=== PATIENT | male | born 1940 | race Hispanic/Latino ===

== ENCOUNTER 2017-06-02 22:44 | Inpatient (IN) | payer SELFPAY ==
[2017-06-02] MEDS ORDERED: Nitroglycerin 2% Ointment 1 INCH/1 GM Packet ONE (22:58)
[2017-06-02 23:07] LABS: #Eosinphils 0.1 thou/uL (0.0-0.7); #Lymphocytes 1.9 thou/uL (1.20-3.40); #Monocytes 0.7 thou/uL (0.11-0.59); #Neutrophils 8.5 thou/uL (1.40-6.50); %Basophils 0.2 % (0.0-1.0); %Eosinophils 0.6 % (0.0-10.0); %Lymphocytes 17.1 % (21.0-51.0); %Monocytes 6.2 % (0.0-10.0); Hemoglobin 10.2 g/dL (14.0-18.0); Mean Corpuscular HGB CONC 33.7 g/dL (32.0-36.0); Mean Corpuscular Hemoglobin 33.9 pg (27.0-31.0); Mean Platelet Volume 7.7 fL (7.4-10.4); Platelet Count 192 thou/uL (130-400); RBC Distribution Width 12.9 % (11.5-14.5); Red Blood Cell (RBC) Count 3.02 mill/uL (4.70-6.10); White Blood Cell (WBC) Count 11.2 thou/uL (4.8-10.8)
--- NOTE | 2017-06-02 23:13 | RAD ---
PORTABLE CHEST 06/02/17 PROVIDED CLINICAL HISTORY: Chest pain. FINDINGS: Cardiac silhouette appears prominent which may be at least partially on the basis of portable techniq ue. Atherosclerosis involves the aortic arch. No focal consolidation, pleural fluid, or pneumothorax apparent. IMPRESSION: No evidence for an acute cardiopulmonary process. POS: JO-ANN
[2017-06-02 23:19] LABS: INR-International Normal Ratio 1.2; PTT 28.4 SEC (22.9-36.1); Prothrombin Time 15.2 SEC (12.0-14.7)
[2017-06-02 23:26] LABS: ALT (SGPT) 14 U/L (8-55); AST (SGOT) 14 U/L (5-34); Albumin 3.6 g/dL (3.4-4.8); Alkaline Phosphatase 78 U/L (40-150); Anion Gap 21 mmol/L (10-20); BUN (Urea Nitrogen) 48 mg/dL (8.4-25.7); Bilirubin, Total 0.4 mg/dL (0.2-1.2); CK (CPK) 32 U/L (30-200); Calc. Creatinine Clearance 0 mL/min (70-130); Calcium 8.9 mg/dL (7.8-10.44); Carbon Dioxide 21 mmol/L (23-31); Chloride 101 mmol/L (98-107); Estimated GFR-MDRD 46; Globulin 2.7 g/dL (2.4-3.5); Glucose 183 mg/dL (83-110); Lipase 72 U/L (8-78); Potassium 4.1 mmol/L (3.5-5.1); Protein, Total 6.3 g/dL (5.8-8.1); Sodium 139 mmol/L (136-145)
[2017-06-02 23:30] LABS: CKMB 1.6 ng/mL (0-6.6); Troponin I 0.045 ng/mL (< 0.028)
[2017-06-02] MEDS ORDERED: Enoxaparin Sodium 80 MG/0.8 ML SYRINGE ONE (23:37)
[2017-06-03] MEDS ORDERED: Eucerin (Mineral Oil/Petrolatum,White) 30 gm Jar TOP PRN (01:16)
[2017-06-03] MEDS ORDERED: Artificial Tears 18 DROP/0.9 ML EA EYE PRN (01:16)
[2017-06-03] MEDS ORDERED: Nitroglycerin 0.4 MG TAB (25 Tab Bottle) PO PRN (01:16)
[2017-06-03] MEDS ORDERED: HumaLOG 300 UNITS/3 ML VIAL SC PRN (01:16)
[2017-06-03] MEDS ORDERED: hydrALAZINE 20 MG/ML VIAL SLOW IVP PRN (01:16)
[2017-06-03] MEDS ORDERED: Ondansetron ODT 4 MG TAB PO PRN (01:16)
[2017-06-03] MEDS ORDERED: Mag-Al 1200 mg/1200 mg/30 ML UDCUP PO PRN (01:16)
[2017-06-03] MEDS ORDERED: Acetaminophen 325 MG TAB PO PRN (01:16)
[2017-06-03] MEDS ORDERED: HYDROcodone/Acetaminophen 5/325 mg Tablet PO PRN (01:16)
[2017-06-03] MEDS ORDERED: Loperamide HCl 2 MG CAP PO PRN (01:16)
[2017-06-03] MEDS ORDERED: Senokot 8.6 MG TAB PO PRN (01:16)
[2017-06-03] MEDS ORDERED: Dextrose 50% Abboject 50 ML SYRINGE SLOW IVP PRN (01:16)
[2017-06-03] MEDS ORDERED: Zolpidem Tartrate 5 MG TAB PO PRN (01:16)
[2017-06-03] MEDS ORDERED: Chloraseptic Spray 180 ml Bottle PO PRN (01:16)
[2017-06-03] MEDS ORDERED: Sodium Chloride 0.65% Nasal 44 ML BOT EA NARE PRN (01:16)
[2017-06-03] MEDS ORDERED: Diabetic Tussin 200 MG/10 ML UDCUP PO PRN (01:16)
[2017-06-03] MEDS ORDERED: Loratadine 10 MG TAB PO PRN (01:16)
[2017-06-03] MEDS ORDERED: Dextrose 5% in Water 1,000 ML IV PRN (01:16)
[2017-06-03] MEDS ORDERED: Ondansetron HCl/PF 4 MG/2 ML Vial IVP PRN (01:16)
[2017-06-03] MEDS ORDERED: Milk Of Magnesia 30 ML UDCUP PO PRN (01:16)
--- NOTE | 2017-06-03 01:38 | HP ---
PRIMARY CARE PHYSICIAN: The patient is from [place], so this is city call admission. REASON FOR ADMISSION: Chest pain (non-STEMI, syncope). HISTORY OF PRESENT ILLNESS: A 77-year-old male who has underlying history of hypertension; diabetes, type 2; and congestive heart failure; who is originally from [place] and he is visiting his family. Around 7:00 p.m. after dinner, the patient was feeling dizziness and he went to his room and he passed out. At that time, the patient was diaphoretic. He regained consciousness very quickly, but after that he was having chest pain, nausea and diaphoresis. This patient is [place] speaking on ly, but he has a grandson present at bedside who helped me to interpret. Family member called paramedics and paramedics came to his house and they evaluated and they were con cerned about STEMI and that is why patient was transferred to our hospital. As per sports teacher's, betty ent had inferior depression in leads II, III, aVF and there was concern of STEMI, but when he arrived to our emergency room and we did EKG, there was no evidence of STEMI. The patient did not have any chest pain. He did not have any vomiting. He did not have any orthopnea, PND or leg swelling. He d oes have a heart problem, which he was told what he is not able to specify what type of heart problem he had. REVIEW OF SYSTEMS: The following complete review of systems was negative, unless otherwise mentioned in the HPI or below: Constitutional: Weight loss or gain, ability to conduct usual activities. Skin: Rash, itching. Eyes: Double vision, pain. ENT/Mouth: Nose bleeding, neck stiffness, pain, tenderness. Cardiovascular: Palpitations, dyspnea on exertion, orthopnea. Respiratory: Shortness of breath, wheezing, cough, hemoptysis, fever or night sweats. Gastrointestinal: Poor appetite, abdominal pain, heartburn, nausea, vomiting, constipation, or diarr hea. Genitourinary: Urgency, frequency, dysuria, nocturia. Musculoskeletal: Pain, swelling. Neurologic/Psychiatric: Anxiety, depression. Allergy/Immunologic: Skin rash, bleeding tendency. Please see my HPI for pertinent positives and negative. All other review of systems reviewed and neg ative except as mentioned in the HPI. ALLERGIES: No known drug allergies. CURRENT HOME MEDICATIONS: Metformin with glibenclamide 500/5 one tablet twice daily, losartan 50 mg daily, Minipress 1 mg t.i.d., Lasix 40 mg t.i.d., aspirin 100 mg p.o. daily. PAST MEDICAL HISTORY: Diabetes, type 2; hypertension; dyslipidemia; unknown heart problem. PAST SURGICAL HISTORY: Reviewed and negative. PAST PSYCHIATRIC HISTORY: Reviewed and negative. FAMILY HISTORY: Diabetes, hypertension runs among several family members. SOCIAL HISTORY: The patient is originally from [place]. No history of tobacco, alcohol or illicit dr ug abuse. EMERGENCY ROOM COURSE: The patient has received Lovenox 1 mg per kg, IV fluids 500 mL and nitropatch . PHYSICAL EXAMINATION: VITAL SIGNS: On arrival, blood pressure 157/74, pulse 77, respiratory rate 19, temperature 97.7, sat uration 100% on room air, weight 66.5 kilograms. GENERAL: The patient is currently alert, awake, no obvious acute distress. HEAD: Normocephalic, atraumatic. EYES: Pupils are round and reactive to light. Extraocular muscle intact. ENT: Oropharynx within normal limits. Moist mucous membranes. No oral lesions. No pharyngeal eryt sanjiv, no exudate. NECK: Supple, no JVD, no thyromegaly, no carotid bruit, no jugular venous distention. LUNGS: Clear to auscultation without any rhonchi or rales. CARDIAC: S1, S2 regular. Systolic murmur present at aortic area as well as parasternal and apex. N o gallop, no rub. ABDOMEN: Soft, bowel sounds present, nontender, nondistended. No organomegaly, no mass, no suprapub ic tenderness. BACK: Unremarkable, no CVA tenderness. EXTREMITIES: Upper extremity: Passive movement of all joints are normal. Lower extremities: No ed carley. Good peripheral pulsation. SKIN: No skin rash. HEMATOLOGICAL SYSTEM: No lymphadenopathy. NEUROLOGIC: Nonfocal examination. The patient moves all 4 limbs. Plantar bilateral flexor. No foc al neurological deficit noted. SIGNIFICANT LABORATORY DATA AND IMAGING: EKG normal sinus rhythm, LVH with some repolarization rose es. Chest x-ray based on my review, no acute cardiopulmonary process. CBC: WBC 11.2, hemoglobin 10 .2, MCV 101, platelets 192. BMP: Sodium 139, potassium 4.1, chloride 101, carbon dioxide 21, anion gap 21, BUN 48, creatinine 1.49, glucose 183, calcium 8.9. LFT: AST 14, ALT 14, alkaline phosphatas e 78, albumin of 3.6, CK 432, CK-MB 1.6, troponin I 0.045, BNP 278.6, INR 1.2. ASSESSMENT AND PLAN: 1. Near syncope/syncope. This patient has significant murmur, which is suspected for aortic stenosi s. He has elevated troponin and he has chest pain, so his syncope is most likely cardiac etiology re lated. We will obtain echocardiography during this admission. We will monitor on telemetry floor fo r any kind of arrhythmia. 2. Chest pain. The patient's chest pain description is also atypical for angina. He has various ri sk factors for coronary artery disease including diabetes, hypertension, and dyslipidemia. At this p oint, his EKG is not showing any ST elevation, but his chest pain and elevated troponin all consisten t with non-ST elevation myocardial infarction. We will continue with Coreg 3.125 mg twice daily, Isabel enox 1 mg per kg subcu twice daily. We will consult Cardiology. We will obtain echocardiography. M eanwhile, we will continue with aspirin 325 mg p.o. daily, nitropatch q.8 hourly. We will check lipi d profile for risk stratification and we will also start Lipitor 20 mg p.o. at bedtime. 3. Diabetes, type 2. We will hold on his oral diabetic medication, but we will continue with insuli n as per sliding scale per protocol. Diabetic diet will be given. 4. Hypertension. We will continue the nitropatch q.8 hourly, Coreg 3.125 mg p.o. b.i.d. and we will titrate blood pressure medication while in hospital. The patient is taking Minipress, losartan, whi ch we will also continue while in hospital. 5. Murmur, most likely related with aortic stenosis murmur. We will obtain echocardiography to asse ss ejection fraction and other structural and functional abnormality. 6. Chronic kidney disease, stage 3. We will monitor renal function and avoid nephrotoxic agents. 7. Elevated BNP, most likely diastolic heart failure. We will obtain echocardiography to assess eje ction fraction and other structural abnormality. 8. Anemia, macrocytosis. We will continue folic acid and vitamin B12 therapy. 9. Deep venous thrombosis prophylaxis. The patient is already on full dose of Lovenox therapy. 10. Gastrointestinal prophylaxis. Pepcid 20 mg p.o. b.i.d. 11. Code status: The patient is FULL CODE. The patient's daughter is surrogate decision maker. Disposition and plan based on clinical course and cardiology recommendation. Plan of care discussed with the patient and family member at bedside in the emergency room.
[2017-06-03 02:51] VITALS: BMI 25.4
[2017-06-03 03:08] LABS: #Lymphocytes 1.3 thou/uL (1.20-3.40); #Monocytes 0.5 thou/uL (0.11-0.59); #Neutrophils 7.5 thou/uL (1.40-6.50); %Basophils 0.1 % (0.0-1.0); %Eosinophils 0.3 % (0.0-10.0); %Lymphocytes 13.4 % (21.0-51.0); %Monocytes 5.2 % (0.0-10.0); Hemoglobin 9.3 g/dL (14.0-18.0); Mean Corpuscular Hemoglobin 33.8 pg (27.0-31.0); Mean Corpuscular Volume 99.5 fl (80.0-94.0); Mean Platelet Volume 7.7 fL (7.4-10.4); Platelet Count 180 thou/uL (130-400); RBC Distribution Width 12.9 % (11.5-14.5); Red Blood Cell (RBC) Count 2.76 mill/uL (4.70-6.10); White Blood Cell (WBC) Count 9.3 thou/uL (4.8-10.8)
[2017-06-03 03:33] LABS: Troponin I 0.157 ng/mL (< 0.028)
[2017-06-03 03:37] LABS: ALT (SGPT) 12 U/L (8-55); AST (SGOT) 13 U/L (5-34); Albumin 3.4 g/dL (3.4-4.8); Alkaline Phosphatase 70 U/L (40-150); Anion Gap 13 mmol/L (10-20); BUN (Urea Nitrogen) 47 mg/dL (8.4-25.7); Bilirubin, Total 0.3 mg/dL (0.2-1.2); Calc. Creatinine Clearance 41 mL/min (70-130); Calcium 8.6 mg/dL (7.8-10.44); Carbon Dioxide 25 mmol/L (23-31); Cardiac Risk 4.7 (Less than 4.5); Chloride 106 mmol/L (98-107); Cholesterol 170 mg/dl (< 200 Desired); Estimated GFR-MDRD 52; Globulin 2.5 g/dL (2.4-3.5); Glucose 223 mg/dL (83-110); HDL Cholesterol 36 mg/dL (>60 Neg Risk); LDL Cholesterol, Calculated 110 mg/dL; Potassium 4.6 mmol/L (3.5-5.1); Protein, Total 5.9 g/dL (5.8-8.1); Sodium 139 mmol/L (136-145); Triglycerides 119 mg/dL (Less than 150)
[2017-06-03] MEDS: Nitroglycerin 2% Ointment 1 INCH/1 GM Packet TOP SCH ×3 (05:49→21:30)
[2017-06-03 08:40] LABS: #Lymphocytes 1.7 thou/uL (1.20-3.40); #Monocytes 0.5 thou/uL (0.11-0.59); #Neutrophils 4.8 thou/uL (1.40-6.50); %Eosinophils 0.7 % (0.0-10.0); %Lymphocytes 24.2 % (21.0-51.0); %Monocytes 6.5 % (0.0-10.0); %Neutrophils 68.6 % (42.0-75.0); Hemoglobin 9.1 g/dL (14.0-18.0); Mean Corpuscular HGB CONC 33.7 g/dL (32.0-36.0); Mean Corpuscular Hemoglobin 33.5 pg (27.0-31.0); Mean Corpuscular Volume 99.4 fl (80.0-94.0); Mean Platelet Volume 7.5 fL (7.4-10.4); Platelet Count 181 thou/uL (130-400); RBC Distribution Width 12.9 % (11.5-14.5)
[2017-06-03] MEDS: Aspirin 325 MG TAB PO SCH (08:41)
[2017-06-03] MEDS: Cyanocobalamin (Vitamin B-12) 1,000 MCG TAB PO SCH (08:41)
[2017-06-03] MEDS: Carvedilol 3.125 MG TAB PO SCH ×2 (08:41→21:30)
[2017-06-03] MEDS: Famotidine 20 MG TAB PO SCH ×2 (08:41→21:28)
[2017-06-03] MEDS: Folic Acid 1 MG TAB PO SCH (08:41)
[2017-06-03] MEDS ORDERED: Enoxaparin Sodium 80 MG/0.8 ML SYRINGE SC SCH (09:00)
--- NOTE | 2017-06-03 12:17 | CON-2 ---
DATE OF CONSULTATION: 06/03/2017. ATTENDING: Randall Lopez M.D. RESIDENT: Paula Arboleda M.D. PGY-2. REASON FOR CONSULT: Chest pain, syncope. HISTORY OF PRESENT ILLNESS: Mr. Farrell is a 77-year-old male from [place], who presents wit h sudden onset of dizziness that first occurred sudden onset yesterday. The patient states that he w as praying and after he finished, he went to his bed and felt dizzy and he passed out for a couple of seconds, this was witnessed by his family. He also complained of sudden onset chest pain that occur red yesterday. The pain was substernal in location and rated 5-6/10 in intensity. The patient state s that this pain was pressure-like and lasted for 1-2 hours. He states that he has had chest pain in the past, it is typically exertional, relieved by rest and goes away after 5 minutes. The patient h ad seen a seafood clerk in the past for an unspecified heart murmur. He was started on medications th at he is not sure which. He states that he has never had a catheterization or stress test in the pas t. PAST MEDICAL HISTORY: 1. Hypertension. 2. Diabetes mellitus type 2. 3. Hyperlipidemia. 4. Heart murmur. MEDICATIONS: 1. Metformin. 2. Glibenclamide 500/5 one tablet twice daily. 3. Losartan 50 mg daily. 4. Minipress 1 mg t.i.d. 5. Lasix 40 mg t.i.d. 6. Aspirin 100 mg p.o. daily. ALLERGIES: No known drug allergies. FAMILY HISTORY: Significant for diabetes and hypertension. The patient states that his mom also had some sort of heart murmur as well. SOCIAL HISTORY: The patient denies tobacco, drugs, or alcohol use. Currently, he does have a remote smoking history greater than 30 years ago. REVIEW OF SYSTEMS: Ten-point review of systems negative aside from what was listed in the history of present illness. PHYSICAL EXAMINATION: VITAL SIGNS: Blood pressure 135/67, temperature 97.8, pulse 66, respirations 18, oxygen saturation 9 8% on room air. GENERAL: The patient is alert and oriented x3, no apparent distress. HEENT: Extraocular muscles are intact. NECK: Supple with no thyromegaly. CARDIOVASCULAR: Regular rate and rhythm with a 3-4/6 systolic ejection murmur that radiates to the c arotids, best heard at the left sternal border. RESPIRATORY: Lungs are clear to auscultation bilaterally. No crackles, rales or wheezes. ABDOMEN: Soft, nontender to palpation. No organomegaly or distention. EXTREMITIES: No cyanosis or peripheral edema. NEUROLOGICAL: Cranial nerves II-XII intact grossly. LABORATORY DATA: 1. CBC: Hemoglobin 9.1, hematocrit 26.8, white blood cell count 7.0, platelet count 181. BMP: Sod ium 139, potassium 4.6, chloride 106, carbon dioxide 25, BUN 47.133, glucose 223. 2. Cardiac enzymes: 0.045, 0.157, 0.200. 3. Fasting lipid panel: Triglycerides 119, cholesterol 170, LDL 110, HDL 36. 4. BNP 278. ASSESSMENT AND PLAN: The patient is a 77-year-old male with history of hypertension, hyperlipidemia, and unspecified murmurs, who presents with sudden onset of chest pain and dizziness. 1. Likely aortic stenosis based on physical exam findings. Echocardiogram has been ordered for furt her evaluation. Physical exam was consistent with severe aortic stenosis. The patient may require a valve replacement to correct this. We will follow up with the results of the echocardiogram. We wi ll also order carotid Dopplers to further evaluate carotid murmur to rule out carotid stenosis. 2. Anemia. The patient's hemoglobin on admission was 7.2 and drops to 9.1. This potentially may be dilutional as the patient did receive a 500 mL bolus of fluids in the emergency department, although he is not currently receiving fluids, although he is not received fluid since. The patient does not describe any symptoms consistent with blood loss; however, I will continue to monitor at this time. The patient does have an MCV of 100. He has been started on B12 and folate supplementation. We cole l continue to monitor.
--- NOTE | 2017-06-03 13:27 | CON ---
DATE OF CONSULTATION: 06/03/2017 CARDIOLOGY CONSULTATION HISTORY OF PRESENT ILLNESS: Mr. Farrell is a 77-year-old man. He had an episode of chest pressure yesterday. He states he has been having chest pressure for quite some time, but yesterday was worse. He was from [place], visiting his family. After dinner, he felt lightheaded and lost consciousness. He was diaphoretic. He regained consciousness quickly subseque ntly. The patient was brought to the hospital for further evaluation. REVIEW OF SYSTEMS: CONSTITUTIONAL: No significant weight gain or loss. VISION: No changes. HEARING: No changes. PULMONARY: No shortness of breath. CARDIAC: Positive for chest pressure with exertion. RESPIRATORY: Positive for shortness of breath. MUSCULOSKELETAL: No unusual joint pain. NEUROLOGIC: No unilateral weakness or numbness. ALLERGIES: None known. MEDICATIONS: 1. Metformin. 2. Losartan. 3. Minipress. 4. Lasix. 5. Aspirin. PAST MEDICAL HISTORY: Diabetes, hypertension, and dyslipidemia. PAST SURGICAL HISTORY: Negative. PSYCHIATRIC HISTORY: Negative. FAMILY HISTORY: Positive for diabetes. SOCIAL HISTORY: He is from [place]. No tobacco. PHYSICAL EXAMINATION: GENERAL: A pleasant elderly gentleman in no distress. VITAL SIGNS: Blood pressure 163/77 followed by 106/62, pulse 70 and it is regular. LUNGS: Clear. CARDIOVASCULAR: Normal S1, normal S2. There is high pitched crescendo decrescendo murmur, sounds li ke aortic stenosis. ABDOMEN: Soft, nontender. EXTREMITIES: No clubbing or cyanosis. There is no edema. He has good popliteal pulses bilaterally. PERTINENT LABORATORY DATA AND X-RAY FINDINGS: Hemoglobin is 10.2 dropped to 9.1. Troponin 0.2. EKG shows left ventricular hypertrophy. ASSESSMENT: 1. Probable aortic stenosis. 2. Syncopal episode, probably orthostatic hypotension. 3. Anemia. 4. Renal insufficiency which improved, probably some fluid here. PLAN: 1. Would avoid Minipress, which is vasodilator. 2. Would avoid intravenous hydralazine if needed. 3. Repeat echo. Echo shows ejection fraction 50%-55%, but gradients did not appear to be accurate a cross the aortic valve. 4. Repeat hemoglobin and hematocrit tomorrow. 5. Carotid Dopplers to be done. Further recommendations after the initial testing.
--- NOTE | 2017-06-03 15:10 | ULT ---
ULTRASOUND CAROTID DOPPLER STANDARD: HISTORY: Bruit. COMPARISON: None. FINDINGS: Vessels are tortuous. Mild atherosclerotic plaque of the carotid bulbs. There is antegrade flow to both vertebral arteries. No elevated peak systolic velocities within the internal carotid arteries t o suggest hemodynamically significant stenosis. IMPRESSION: 1. No hemodynamically significant stenosis within the internal carotid arteries. 2. Antegrade flow to both vertebral arteries. 3. Tortuous vessels bilaterally suggests chronic hypertension. POS: BUFFY
[2017-06-03] MEDS: Atorvastatin Calcium 20 MG TAB PO SCH (21:28)
[2017-06-04 05:31] LABS: #Eosinphils 0.2 thou/uL (0.0-0.7); #Lymphocytes 2.1 thou/uL (1.20-3.40); #Monocytes 0.4 thou/uL (0.11-0.59); %Basophils 0.8 % (0.0-1.0); %Eosinophils 2.8 % (0.0-10.0); %Monocytes 7.5 % (0.0-10.0); %Neutrophils 52.9 % (42.0-75.0); Hemoglobin 8.5 g/dL (14.0-18.0); Mean Corpuscular HGB CONC 33.7 g/dL (32.0-36.0); Mean Corpuscular Hemoglobin 33.7 pg (27.0-31.0); Mean Platelet Volume 7.8 fL (7.4-10.4); Platelet Count 163 thou/uL (130-400); Red Blood Cell (RBC) Count 2.53 mill/uL (4.70-6.10); White Blood Cell (WBC) Count 5.7 thou/uL (4.8-10.8)
[2017-06-04] MEDS: Nitroglycerin 2% Ointment 1 INCH/1 GM Packet TOP SCH ×2 (05:54→13:28)
[2017-06-04 05:56] LABS: Albumin 3.2 g/dL (3.4-4.8); Anion Gap 9 mmol/L (10-20); BUN (Urea Nitrogen) 36 mg/dL (8.4-25.7); BUN/Creatinine Ratio 26.67; Calc. Creatinine Clearance 41 mL/min (70-130); Calcium 8.8 mg/dL (7.8-10.44); Carbon Dioxide 28 mmol/L (23-31); Chloride 108 mmol/L (98-107); Estimated GFR-MDRD 51; Glucose 96 mg/dL (83-110); Magnesium 2.3 mg/dL (1.6-2.6); Phosphorus 3.6 mg/dL (2.3-4.7); Potassium 3.9 mmol/L (3.5-5.1); Sodium 141 mmol/L (136-145)
[2017-06-04] MEDS ORDERED: Carvedilol 3.125 MG TAB PO SCH ×2 (10:00→21:00)
[2017-06-04] MEDS: Aspirin 325 MG TAB PO SCH (10:04)
[2017-06-04] MEDS: Famotidine 20 MG TAB PO SCH ×2 (10:05→20:09)
[2017-06-04] MEDS: Folic Acid 1 MG TAB PO SCH (10:05)
[2017-06-04] MEDS: Cyanocobalamin (Vitamin B-12) 1,000 MCG TAB PO SCH (10:05)
[2017-06-04] MEDS: HumaLOG 300 UNITS/3 ML VIAL SC PRN (11:54)
--- NOTE | 2017-06-04 15:15 | EKG ---
Test Reason : CHEST PAIN/STEMI Blood Pressure : / mmHG Vent. Rate : 073 BPM Atrial Rate : 073 BPM P-R Int : 160 ms QRS Dur : 086 ms QT Int : 374 ms P-R-T Axes : 045 018 -10 degrees QTc Int : 412 ms Normal sinus rhythm Left ventricular hypertrophy with repolarization abnormality Abnormal ECG Confirmed by ORA VELA, MARCOS ([id number]), metropolitan editor KELSEA VELÁSQUEZ ([id number]) on 06/04/2017 3:15:05 PM Referred By: Confirmed By:MARCOS PAYAN MD
--- NOTE | 2017-06-04 17:07 | PDOC.CTH ---
<Mary Sánchez - Last Filed: 06/04/17 17:05> Cardiology Progress Note - Subjective The pt seen and exmained. No overnight events. No cardiac complaints. The pt HR has been 45-low 50s after Coreg was given. - Objective Vital Signs Temp Pulse Resp BP Pulse Ox 06/04/17 15:32 98.4 F 51 L 20 159/73 H 95 06/04/17 11:22 46 L 18 159/73 H 96 06/04/17 08:00 96.4 F L 46 L 18 95 06/04/17 06:58 96.4 F L 47 L 18 141/65 H 95 Weight 138 lb 2 oz 06/03/17 06/04/17 06/05/17 06:59 06:59 06:59 Intake Total 0 740 Output Total 800 750 Balance -800 -10 - Physical Examination General/Neuro: alert & oriented x3 Neck: no JVD present Lungs: CTA (diminished at bases) Heart: RRR (mumur) Abdomen: soft Extremities: other: (edema) - Telemetry Telemetry Rhythm: SB 50s - Labs Result Diagrams: 06/04/17 04:33 06/04/17 04:33 Troponin/CKMB CK-MB (CK-2) 1.6 ng/mL (0-6.6) 06/02/17 22:53 Troponin I 0.200 ng/mL (< 0.028) H 06/03/17 05:23 - Assessment/Plan 1. Near syncopal episode with Severe - possible Cath on Tuesday for further evaluation of possible AVR; however, his Cr is slightly high and Hgb 8.5. 2. HTN - Start Norvasc 5mg QD; cont. monitor 3. CKD stage 3 - no changed; cont. monitor 4. DM type 2 - managed by PCP 5. Hyperlipidemia - on Lipitor 6. Anemia - Hgb today was 8.5 MAR reviewed Review of Systems - Review of Systems Constitutional: reports: no symptoms reported EENTM: reports: no symptoms reported Respiratory: reports: no symptoms reported Cardiac (ROS): reports: no symptoms reported ABD/GI: reports: no symptoms reported : reports: no symptoms reported Musculoskeletal: reports: no symptoms reported <Quinton Wilkes - Last Filed: 06/05/17 01:23> Cardiology Progress Note - Objective Vital Signs Temp Pulse Resp BP BP Pulse Ox 06/05/17 00:00 146/67 H 06/04/17 20:00 98.8 F 49 L 18 171/73 H 93 L 06/04/17 18:18 51 L 159/73 H 06/04/17 15:35 95 06/04/17 15:32 98.4 F 51 L 20 159/73 H 95 Weight 138 lb 2 oz 06/03/17 06/04/17 06/05/17 06:59 06:59 06:59 Intake Total 0 740 650 Output Total 800 750 200 Balance -800 -10 450 - Labs Result Diagrams: 06/04/17 04:33 06/04/17 04:33 Troponin/CKMB CK-MB (CK-2) 1.6 ng/mL (0-6.6) 06/02/17 22:53 Troponin I 0.200 ng/mL (< 0.028) H 06/03/17 05:23 - Assessment/Plan The pt. was seen and eval. by me. I agree with the A/P by the SIGN WIRER.
[2017-06-04] MEDS ORDERED: Amlodipine 5 MG TAB PO SCH (17:30)
[2017-06-04] MEDS ORDERED: Senokot 8.6 MG TAB PO PRN (18:19)
--- NOTE | 2017-06-04 18:27 | PDOC.PN ---
- Subjective Encounter Start Date: 06/04/17 Encounter Start Time: 15:30 Patient seen and examined. No new complaints. No overnight events - Objective Resuscitation Status: Resuscitation Status FULL:Full Resuscitation MAR Reviewed: Yes Vital Signs & Weight: Vital Signs (12 hours) Temp Pulse Resp BP BP Pulse Ox 06/04/17 18:18 51 L 159/73 H 06/04/17 15:32 98.4 F 51 L 20 159/73 H 95 06/04/17 11:22 46 L 18 159/73 H 96 06/04/17 08:00 96.4 F L 46 L 18 95 06/04/17 06:58 96.4 F L 47 L 18 141/65 H 95 Weight Weight 138 lb 2 oz I&O: 06/03/17 06/04/17 06/05/17 06:59 06:59 06:59 Intake Total 0 740 Output Total 800 750 Balance -800 -10 Result Diagrams: 06/04/17 04:33 06/04/17 04:33 Additional Labs: Accuchecks 06/04/17 06/04/17 06/04/17 16:51 11:35 06:00 POC Glucose 90 191 H 92 06/03/17 20:53 POC Glucose 225 H EKG Reviewed by me: Yes (Tele SB) Phys Exam - Physical Examination Constitutional: NAD Neck: no JVD Respiratory: no wheezing, no rales, no rhonchi Symmetrical Cardiovascular: RRR, no rub 4/6 ANJUM, no heaves Gastrointestinal: soft, non-tender, no distention, positive bowel sounds Musculoskeletal: no edema Neurological: non-focal, moves all 4 limbs Psychiatric: normal affect, A&O x 3 Dx/Plan - Plan DVT proph w/lovenox, DVT proph w/SCDs IMPRESSION: 1. Syncope due to Severe - r/o CAD 2. Elevated troponins 3. DM2 4. HTN 5. CKD 3 PLAN: * Cath on Tuesday * Cardio following * Amlodipine started * on Coreg with holding parameters Review of Systems - Review of Systems Respiratory: negative: Cough, Dry, Shortness of Breath, Hemoptysis, SOB with Excertion, Pleuritic Pain, Sputum, Wheezing Cardiovascular: negative: chest pain, palpitations, orthopnea, paroxysmal nocturnal dyspnea, edema, light headedness Gastrointestinal: negative: Nausea, Vomiting, Abdominal Pain, Diarrhea, Constipation, Melena, Hematochezia - Medications/Allergies Allergies/Adverse Reactions: Allergies Allergy/AdvReac Type Severity Reaction Status Date / Time No Known Allergies Allergy Verified 06/03/17 02:37 Medications: Current Medications Acetaminophen (Tylenol) 650 mg PO Q4H PRN PRN Reason: Headache/Fever or Pain Al Hydroxide/Mg Hydroxide (Maalox) 30 ml PO Q6H PRN PRN Reason: Heartburn or Indigestion Amlodipine Besylate (Norvasc) [address] [facility] Amlodipine Besylate (Norvasc) [address] [facility] Stop: 06/04/17 19:30 Last Admin: 06/04/17 18:18 Dose: 5 mg Artificial Tears (Tears Naturale) 0 drop EA EYE PRN PRN PRN Reason: Dry Eyes Aspirin (Aspirin) [address] [facility] Last Admin: 06/04/17 10:04 Dose: 325 mg Atorvastatin Calcium (Lipitor) 20 mg PO [facility] Last Admin: 06/03/17 21:28 Dose: 20 mg Carvedilol (Coreg) 3.[address] [facility] Cyanocobalamin (Vitamin B-12) 1,[address] [facility] Last Admin: 06/04/17 10:05 Dose: 1,000 mcg Dextrose/Water (Dextrose 50%) 25 gm SLOW IVP PRN PRN PRN Reason: Hypoglycemia Docusate Sodium (Colace) [address] [facility] Famotidine (Pepcid) [address] [facility] Last Admin: 06/04/17 10:05 Dose: 20 mg Folic Acid (Folvite) [address] [facility] Last Admin: 06/04/17 10:05 Dose: 1 mg Glucagon (Glucagon) 1 mg IM PRN PRN PRN Reason: Hypoglycemia Guaifenesin (Robitussin Sf) 200 mg PO Q4H PRN PRN Reason: Cough Dextrose/Water (D5w) 1,000 mls @ 0 mls/hr IV .Q0M PRN; As Directed PRN Reason: Hypoglycemia Insulin Human Lispro (Humalog) 0 units SC .MODERATE SLIDING SC PRN PRN Reason: Moderate Correctional Scale Last Admin: 06/04/17 11:54 Dose: 2 unit Insulin Human Lispro (Humalog) 0 units SC .BEDTIME SLIDING SC PRN PRN Reason: Bedtime Correctional Scale Loperamide HCl (Imodium) 2 mg PO PRN PRN PRN Reason: Diarrhea/Loose Stools Loratadine (Claritin) 10 mg PO DAILYPRN PRN PRN Reason: Sinus Symptoms Magnesium Hydroxide (Milk Of Magnesium) 30 ml PO DAILYPRN PRN PRN Reason: Constipation Mineral Oil/White Petrolatum (Eucerin Cream) 0 gm TOP BIDPRN PRN PRN Reason: Dry Skin Nitroglycerin (Nitrostat) 0.4 mg PO Q5MIN PRN PRN Reason: Chest Pain Ondansetron HCl (Zofran Odt) 4 mg PO Q6H PRN PRN Reason: Nausea/Vomiting Ondansetron HCl (Zofran) 4 mg IVP Q6H PRN PRN Reason: Nausea/Vomiting Phenol (Chloraseptic [place] 180 Ml Bot) 0 ml PO PRN PRN PRN Reason: Sore Throat Senna (Senokot) 2 tab PO HSPRN PRN PRN Reason: Constipation Senna (Senokot) 2 tab PO HSPRN PRN PRN Reason: Constipation Sodium Chloride ([place] Nasal [place] 0.65%) 0 ml EA NARE QIDPRN PRN PRN Reason: Nasal Congestion
[2017-06-04] MEDS: Docusate 100 MG CAP PO SCH (20:09)
[2017-06-04] MEDS: Atorvastatin Calcium 20 MG TAB PO SCH (20:09)
[2017-06-04] MEDS: Carvedilol 3.125 MG TAB PO SCH ×2 (21:28)
[2017-06-05] MEDS ORDERED: Enoxaparin Sodium 30 MG/0.3 ML SYRINGE SC SCH (09:00)
[2017-06-05] MEDS ORDERED: Amlodipine 5 MG TAB PO SCH ×2 (09:00→13:30)
[2017-06-05] MEDS: Aspirin 325 MG TAB PO SCH (09:06)
[2017-06-05] MEDS: Famotidine 20 MG TAB PO SCH ×2 (09:06→20:17)
[2017-06-05] MEDS: Folic Acid 1 MG TAB PO SCH (09:07)
[2017-06-05] MEDS: Cyanocobalamin (Vitamin B-12) 1,000 MCG TAB PO SCH (09:07)
[2017-06-05] MEDS: Docusate 100 MG CAP PO SCH ×2 (09:07→20:17)
[2017-06-05 09:28] LABS: Hemoglobin 9.7 g/dL (14.0-18.0); Platelet Count 182 thou/uL (130-400)
--- NOTE | 2017-06-05 11:00 | PDOC.PN ---
- Subjective Encounter Start Date: 06/05/17 Encounter Start Time: 10:58 Mr. Farrell was seen today in follow-up. He does not have any complaints this morning. He denies chest pain or shortness of breath. - Objective Resuscitation Status: Resuscitation Status FULL:Full Resuscitation MAR Reviewed: Yes Vital Signs & Weight: Vital Signs (12 hours) Temp Pulse Resp BP BP Pulse Ox 06/05/17 09:06 52 L 187/82 H 06/05/17 08:30 98.0 F 52 L 16 95 06/05/17 08:29 98 F 52 L 16 187/82 H 95 06/05/17 04:00 98.5 F 93 16 172/76 H 94 L 06/05/17 00:00 146/67 H Weight Weight 137 lb 9 oz I&O: 06/04/17 06/05/17 06/06/17 06:59 06:59 06:59 Intake Total 740 750 420 Output Total 750 200 Balance -10 550 420 Result Diagrams: 06/05/17 09:05 06/05/17 09:05 Additional Labs: Accuchecks 06/05/17 06/04/17 06/04/17 05:27 20:11 16:51 POC Glucose 104 212 H 90 06/04/17 11:35 POC Glucose 191 H Phys Exam - Physical Examination HEENT: PERRLA Respiratory: no wheezing, no rales, no rhonchi, clear to auscultation bilateral Cardiovascular: RRR 3/6 systolic murmur to carotids Gastrointestinal: soft, non-tender, no distention, positive bowel sounds Musculoskeletal: no edema Dx/Plan (1) Critical aortic valve stenosis Code(s): I35.0 - NONRHEUMATIC AORTIC (VALVE) STENOSIS Status: Acute (2) Hypertension Code(s): I10 - ESSENTIAL (PRIMARY) HYPERTENSION Status: Acute (3) Diabetes mellitus type 2 in nonobese Code(s): E11.9 - TYPE 2 DIABETES MELLITUS WITHOUT COMPLICATIONS Status: Acute - Plan * Critical - plan is for Cardiac Cath tomorrow in preparation for surgery * HTN continue Carvediolol, and Amlodipine- avoiding hydralazine due to . and can not increase Carvediolol due to HR * DM- blood glucose is stable .
--- NOTE | 2017-06-05 13:10 | PDOC.CTH ---
<Mary Sánchez - Last Filed: 06/05/17 16:19> Cardiology Progress Note - Subjective The pt seen and examined. No overnight events. No cardiac complaints. - Objective Vital Signs Temp Pulse Resp BP BP Pulse Ox 06/05/17 09:06 52 L 187/82 H 06/05/17 08:30 98.0 F 52 L 16 95 06/05/17 08:29 98 F 52 L 16 187/82 H 95 06/05/17 04:00 98.5 F 93 16 172/76 H 94 L Weight 137 lb 9 oz 06/04/17 06/05/17 06/06/17 06:59 06:59 06:59 Intake Total 740 750 420 Output Total 750 200 Balance -10 550 420 - Physical Examination General/Neuro: alert & oriented x3 Neck: no JVD present Lungs: CTA Heart: RRR, other: (Murmur) Abdomen: soft Extremities: other: (No edema) - Telemetry Telemetry Rhythm: SR with LBBB 60s - Labs Result Diagrams: 06/05/17 09:05 06/05/17 09:05 Troponin/CKMB CK-MB (CK-2) 1.6 ng/mL (0-6.6) 06/02/17 22:53 Troponin I 0.200 ng/mL (< 0.028) H 06/03/17 05:23 - Assessment/Plan 1. Near syncopal episode with Severe - possible Cath on Tuesday for further evaluation of possible AVR; Today's Cr was 1.35 today and Hgb 9.7 which was 8.5. The pt and family stated Dr Lopez already explained the procedure and the risk; They voiced understanding, no questions at this time, and would like to proceed the procedure if possible 2. HTN - Increase Norvasc 10mg QD; cont. monitor 3. CKD stage 3 - slightly worsen today; cont. monitor 4. DM type 2 - managed by PCP 5. Hyperlipidemia - on Lipitor 6. Anemia - Hgb today was 9.7 which was 8.5 yesterday MAR reviewed <attendant> The pt's BP has been 170-190s after additional BP med was given; Start Clonidin 0.1mg PO q8hrs prn for SBP > 160 Review of Systems - Review of Systems Constitutional: reports: no symptoms reported EENTM: reports: no symptoms reported Respiratory: reports: no symptoms reported Cardiac (ROS): reports: no symptoms reported ABD/GI: reports: no symptoms reported : reports: no symptoms reported Musculoskeletal: reports: no symptoms reported Skin: reports: no symptoms reported <Quinton Wilkes - Last Filed: 06/06/17 09:36> Cardiology Progress Note - Objective Vital Signs Temp Pulse Resp BP BP Pulse Ox 06/06/17 09:14 56 L 175/79 H 06/06/17 08:00 98.5 F 56 L 18 175/79 H 96 06/06/17 03:37 97.5 F L 51 L 16 137/65 94 L Weight 138 lb 5 oz 06/05/17 06/06/17 06/07/17 06:59 06:59 06:59 Intake Total 750 2046 Output Total 200 Balance 550 2046 - Labs Result Diagrams: 06/06/17 04:36 06/06/17 04:36 Troponin/CKMB CK-MB (CK-2) 1.6 ng/mL (0-6.6) 06/02/17 22:53 Troponin I 0.200 ng/mL (< 0.028) H 06/03/17 05:23 - Assessment/Plan Pt. seen and eval. by me. I agree with the A/P by the BIT GRINDER. Chest clear. RRR.
[2017-06-05] MEDS: Carvedilol 3.125 MG TAB PO SCH ×2 (13:14→22:20)
[2017-06-05] MEDS ORDERED: cloNIDine 0.1 MG TAB PO PRN (16:17)
[2017-06-05] MEDS: HumaLOG 300 UNITS/3 ML VIAL SC PRN (17:33)
[2017-06-05] MEDS: Atorvastatin Calcium 20 MG TAB PO SCH (20:17)
[2017-06-06 05:17] LABS: #Eosinphils 0.2 thou/uL (0.0-0.7); #Lymphocytes 1.9 thou/uL (1.20-3.40); #Monocytes 0.5 thou/uL (0.11-0.59); #Neutrophils 3.8 thou/uL (1.40-6.50); %Basophils 0.3 % (0.0-1.0); %Lymphocytes 30.2 % (21.0-51.0); %Monocytes 7.5 % (0.0-10.0); Hemoglobin 8.7 g/dL (14.0-18.0); Mean Corpuscular HGB CONC 34.4 g/dL (32.0-36.0); Mean Corpuscular Hemoglobin 34.3 pg (27.0-31.0); Mean Corpuscular Volume 99.9 fl (80.0-94.0); Mean Platelet Volume 7.7 fL (7.4-10.4); Platelet Count 159 thou/uL (130-400); RBC Distribution Width 12.8 % (11.5-14.5); Red Blood Cell (RBC) Count 2.52 mill/uL (4.70-6.10); White Blood Cell (WBC) Count 6.4 thou/uL (4.8-10.8)
[2017-06-06 05:29] LABS: Anion Gap 10 mmol/L (10-20); BUN (Urea Nitrogen) 26 mg/dL (8.4-25.7); Calc. Creatinine Clearance 43 mL/min (70-130); Calcium 8.7 mg/dL (7.8-10.44); Carbon Dioxide 26 mmol/L (23-31); Chloride 107 mmol/L (98-107); Estimated GFR-MDRD 54; Glucose 114 mg/dL (83-110); Sodium 139 mmol/L (136-145)
--- NOTE | 2017-06-06 08:29 | PDOC.PN ---
- Subjective Encounter Start Date: 06/06/17 Encounter Start Time: 08:27 Mr. Farrell does not have any complaints this morning, He denies chest pain or shortness of breath. - Objective Resuscitation Status: Resuscitation Status FULL:Full Resuscitation MAR Reviewed: Yes Vital Signs & Weight: Vital Signs (12 hours) Temp Pulse Resp BP Pulse Ox 06/06/17 03:37 97.5 F L 51 L 16 137/65 94 L Weight Weight 138 lb 5 oz I&O: 06/05/17 06/06/17 06/07/17 06:59 06:59 06:59 Intake Total 750 2046 Output Total 200 Balance 550 6 Result Diagrams: 06/06/17 04:36 06/06/17 04:36 Additional Labs: Accuchecks 06/06/17 06/05/17 06/05/17 06:40 21:54 17:10 POC Glucose 138 H 94 221 H 06/05/17 11:16 POC Glucose 219 H Phys Exam - Physical Examination HEENT: PERRLA Respiratory: no wheezing, no rales, no rhonchi, clear to auscultation bilateral Cardiovascular: RRR 3/6 systolic murmur to the carotids Gastrointestinal: soft, non-tender, positive bowel sounds Musculoskeletal: no edema Dx/Plan (1) Critical aortic valve stenosis Code(s): I35.0 - NONRHEUMATIC AORTIC (VALVE) STENOSIS Status: Acute (2) Hypertension Code(s): I10 - ESSENTIAL (PRIMARY) HYPERTENSION Status: Acute (3) Diabetes mellitus type 2 in nonobese Code(s): E11.9 - TYPE 2 DIABETES MELLITUS WITHOUT COMPLICATIONS Status: Acute - Plan * Critical - plan is for cardiac cath this morning * Possible Aortic valve replacement * DM- blood glucose is stable * HTN- blood pressure is stable.
[2017-06-06] MEDS ORDERED: Amlodipine 5 MG TAB PO SCH (09:00)
[2017-06-06] MEDS ORDERED: Amlodipine 10 MG TAB PO SCH (09:00)
[2017-06-06] MEDS ORDERED: Diazepam 5 MG TAB PO SCH (10:00)
[2017-06-06] MEDS ORDERED: Communication Order-Pharmacy FS SCH ×2 (10:00→14:32)
[2017-06-06] MEDS ORDERED: Sodium Chloride 0.9% 1,000 ML IV SCH (10:00)
--- NOTE | 2017-06-06 10:27 | PRG ---
DATE OF SERVICE: 06/06/2017 Mr. Farrell is resting comfortably today. PHYSICAL EXAMINATION: VITAL SIGNS: Blood pressure 175/79, pulse 56. PLAN: Discussed again with the family that he has severe aortic stenosis, needs cardiac catheterizat ion. We discussed risks including stroke, heart attack, iodine allergy. They understand and wish to proceed. We also discussed this last Tuesday.
[2017-06-06] MEDS ORDERED: Fentanyl 100 MCG/2 ML VIAL ONE (10:56)
[2017-06-06] MEDS ORDERED: Nitroglycerin 2% Ointment 1 INCH/1 GM Packet ONE (11:19)
[2017-06-06] MEDS ORDERED: Acetaminophen/Codeine 30-300mg Tablet PO PRN ×2 (11:27)
[2017-06-06] MEDS ORDERED: Nitroglycerin 0.4 MG TAB (25 Tab Bottle) SL PRN (11:27)
[2017-06-06] MEDS ORDERED: traMADol HCl 50 MG TAB PO PRN (11:27)
[2017-06-06] MEDS ORDERED: Sodium Chloride 0.9% 200 ML IV SCH (11:30)
[2017-06-06] MEDS ORDERED: Iopamidol 370 76% 100 ML VIAL ONE (11:52)
[2017-06-06] MEDS: Carvedilol 3.125 MG TAB PO SCH (12:06)
[2017-06-06] MEDS: Folic Acid 1 MG TAB PO SCH (13:03)
[2017-06-06] MEDS: Aspirin 325 MG TAB PO SCH (13:03)
[2017-06-06] MEDS: Cyanocobalamin (Vitamin B-12) 1,000 MCG TAB PO SCH (13:03)
[2017-06-06] MEDS: Famotidine 20 MG TAB PO SCH ×2 (13:03→22:31)
[2017-06-06] MEDS: Docusate 100 MG CAP PO SCH ×2 (13:03→22:31)
[2017-06-06] MEDS: Sodium Chloride 0.9% 1,000 ML IV SCH (13:04)
--- NOTE | 2017-06-06 15:43 | CON ---
DATE OF CONSULTATION: 06/06/2017 REQUESTING PHYSICIAN: Dr. Lopez. CHIEF COMPLAINT: Syncope and chest pain. HISTORY OF PRESENT ILLNESS: The patient is a 77-year-old man here from [place] visiting his family. He has known about a heart murmur for some time and upon questioning (facilitated through multiple family members, we were able to get history and help with translation). For several months, he has been having exertional dyspnea and chest pain. He was admitted 4-5 days ago after having had an episode of syncope; when he regained consciousness after a brief period he was complaining of chest pain or pressure. He had inferior lead ST depression according to the paramedics at the time they transported him. His troponins were mildly elevated at the time of presentation. By physical exam, patient was suspected of having aortic stenosis and this was confirmed by echocardiography and today cardiac catheterization demonstrates severe three-vessel coronary artery disease as well. PAST MEDICAL HISTORY: Significant for hypertension and diabetes. HOME MEDICATIONS: Metformin 500, glibenclamide 5 one tablet b.i.d., losartan 50 mg a day, clonidine 1 mg t.i.d., Lasix 40 mg t.i.d. and an aspirin a day. ALLERGIES: The patient denies any medical or food allergies. SOCIAL HISTORY: He does not smoke. FAMILY HISTORY: Significant for diabetes and hypertension in multiple family members. REVIEW OF SYSTEMS: Positive for his recent syncope, but no previous syncope or presyncope. Several months of exertional chest pain and shortness of breath. He denies any recent fever or chills. Denies any active dental problems. Denies any bleeding tendencies. Denies any weight loss. Denies any transient eyes, speech, facial or extremity symptoms consistent with TIAs. PHYSICAL EXAMINATION: GENERAL: He is a small stature man in no distress. VITAL SIGNS: Height 5 foot 2, weight is 139 pounds. His heart rates have been around 50-60. His latest blood pressure 175/80. His temperature is 97.5. HEENT: He has no xanthelasma. Multiple fillings and missing teeth. No obvious dental infections. NECK: No JVD. CARDIOVASCULAR: He has bilateral carotid bruits versus radiation of an murmur. He has a musical systolic murmur heard throughout his precordium with indistinct S1 and S2, was not able to appreciate any S3 or S4. LUNGS: He has clear breath sounds. ABDOMEN: Soft, nontender, without organomegaly, masses or bruits. EXTREMITIES: He has easily palpable radial, femoral, and popliteal and dorsalis pedis pulses bilaterally. I was able to feel the right posterior tibial, but not left posterior tibial. He has no femoral bruits. He has no clubbing, cyanosis or edema. NEUROLOGIC: Grossly nonfocal. LABORATORY DATA: His chest x-ray is essentially normal. His EKG suggests LVH. His echocardiogram shows an EF of around 50-55% by visual estimate 44.2% calculated, his left atrium is 3.86 cm. His transaortic valvular gradient was estimated at 83 peak and 45 mean. Cardiac catheterization shows right dominant system about a 40-50% proximal lesion. Some trivial disease in the posterolateral branch, but diffuse disease in the PDA with a high grade lesion proximally and what appears to represent a subtotal lesion in the mid portion. There is some minimal disease in the proximal to mid LAD with a small first diagonal in reasonably good size, second diagonal with some mild disease on the order of about 40-50%. Just beyond the origin of that second diagonal, there is a very high grade mid LAD lesion and then the LAD goes on to wrap around the apex. There is an almost a common orifice to the LAD and circumflex with about an 80-90% mid circumflex lesion with really only one significant obtuse marginal coming off of it. Laboratory exam showed a white count of 6.4, hemoglobin of 8.7, hematocrit of 25.2, platelets 159,000. His MCVs on serial CBCs have all been around 100 with the lowest being 99.4 and the highest being 101. His electrolytes were normal. His glucose was 183, BUN 48 and creatinine 1.49 on admission. Follow up study showed a glucose of 114, BUN 26 and creatinine 1.28. His LFTs were normal. His troponin was 0.045 on admission and mata about 4 hours later to 0.157 and then later on the 0.20. His BNP on admission was 278.6. Carotid ultrasonography showed tortuous vessels with no evidence of stenosis. IMPRESSION AND RECOMMENDATIONS: Severe aortic stenosis and severe three-vessel coronary artery disease. The patient has been having angina and dyspnea on exertion for quite some time and then had a syncopal episode associated with mild rise in his troponin recently. His dentition is suboptimal, but there are no active infections. I would recommend proceeding with bioprosthetic aortic valve replacement and coronary artery bypass grafting. We will plan on using vancomycin as part of his perioperative antibiotic prophylaxis given the duration of his preoperative hospital stay. We will defer the use of beta blockade at least initially because of his slow heart rates. [facility]ILLI[facility]
[2017-06-06] MEDS: Atorvastatin Calcium 20 MG TAB PO SCH (22:31)
[2017-06-07] MEDS ORDERED: Amlodipine 10 MG TAB PO SCH (05:00)
[2017-06-07] MEDS: Sodium Chloride 0.9% 1,000 ML IV SCH ×2 (05:24→19:55)
[2017-06-07] MEDS ORDERED: Fentanyl 100 MCG/2 ML VIAL ONE ×5 (06:34→15:22)
[2017-06-07] MEDS ORDERED: Norepinephrine 8 MG/0.9% NS 250 ML ONE (06:35)
[2017-06-07] MEDS ORDERED: Dexmedetomidine 200 MCG/2 ML VIAL ONE (06:35)
[2017-06-07] MEDS ORDERED: Midazolam HCl 5 mg/5 ml Vial ONE ×2 (06:35→15:22)
[2017-06-07] MEDS ORDERED: Vecuronium 10 MG VIAL ONE ×2 (06:35→15:13)
[2017-06-07] MEDS ORDERED: Heparin 10,000 UNITS/1 ML VIAL 30,000 UNITS in Sodium Chloride 0.9% 1,000 ML FS SCH (06:45)
[2017-06-07] MEDS ORDERED: Post-Op Insulin Drip Protocol IVPB ONE (06:55)
[2017-06-07] MEDS ORDERED: Bisacodyl 10 MG SUPP PR PRN (06:55)
[2017-06-07] MEDS ORDERED: Ondansetron HCl/PF 4 MG/2 ML Vial IVP PRN (06:55)
[2017-06-07] MEDS ORDERED: Bisacodyl 5 MG TAB PO PRN (06:55)
[2017-06-07] MEDS ORDERED: Hetastarch 6% 500 ML 500 ML IVPB PRN (06:55)
[2017-06-07] MEDS ORDERED: Norepinephrine 8 MG/0.9% NS 250 ML IVPB PRN (06:55)
[2017-06-07] MEDS ORDERED: Promethazine HCl 25 MG/ML VIAL IM PRN (06:55)
[2017-06-07] MEDS ORDERED: HYDROcodone/Acetaminophen 5/325 mg Tablet PO PRN ×2 (06:55)
[2017-06-07] MEDS ORDERED: Guaifenesin DM 100-10/5 ML UDCUP PO PRN (06:55)
[2017-06-07] MEDS ORDERED: Fentanyl 100 MCG/2 ML VIAL SLOW IVP PRN ×2 (06:55)
[2017-06-07] MEDS ORDERED: Acetaminophen 325 MG TAB PO PRN (06:55)
[2017-06-07] MEDS ORDERED: Potassium Chloride 20 MEQ/100 ML PREMIX BAG IVPB PRN (06:55)
[2017-06-07] MEDS ORDERED: Nitroglycerin 50 MG/250 ML BOT 250 ML IVPB PRN (06:55)
[2017-06-07] MEDS ORDERED: Mag-Al 1200 mg/1200 mg/30 ML UDCUP PO PRN (06:55)
[2017-06-07] MEDS ORDERED: CEFAZOLIN/Water 2 GM/20 ML SYRINGE ONE (07:07)
[2017-06-07] MEDS ORDERED: Sodium Chloride 0.9% 1,000 ML IV SCH ×2 (07:07→14:30)
[2017-06-07] MEDS ORDERED: Insulin Regular 300 UNITS/3 ML VIAL ONE ×2 (07:36→16:08)
[2017-06-07] MEDS ORDERED: Dextrose 50% Abboject 50 ML SYRINGE SLOW IVP PRN (07:46)
[2017-06-07] MEDS ORDERED: Insulin Regular 300 UNITS/3 ML VIAL SC PRN (07:46)
[2017-06-07] MEDS ORDERED: Dextrose 5% in Water 1,000 ML IV PRN (07:46)
[2017-06-07] MEDS ORDERED: Albumin 5% 500 ML ONE ×2 (07:55→16:44)
[2017-06-07] MEDS ORDERED: Vancomycin HCl 500 MG in Sodium Chloride 0.9% 100 ML IVPB SCH (08:00)
[2017-06-07] MEDS ORDERED: CEFAZOLIN 1 GM, Syringe 2.5 ML in Sterile Water 7.5 ML SLOW IVP SCH (08:00)
[2017-06-07] MEDS ORDERED: Aspirin 325 MG TAB PO SCH (09:00)
[2017-06-07 13:48] LABS: Actual Bicarbonate (HCO3a) 17.5 mEq/L (22-26); Base Excess (BEa) -6.5 mEq/L (0 (+/-) 2.5); CO2 Tension 29.6 mmHg (35.0-45.0); Calcium, Ionized 1.2 mmol/L (1.12-1.30); Hemoglobin (Hb) 10.1 g/dL (14.0-18.0); O2 Tension (PaO2) 308.3 mmHg (80.0-100.0); pH, Arterial 7.39 (7.35-7.45)
[2017-06-07 13:49] LABS: Puncture Site ALINE
[2017-06-07 14:03] LABS: #Eosinphils 0.1 thou/uL (0.0-0.7); #Lymphocytes 1.2 thou/uL (1.20-3.40); #Monocytes 0.2 thou/uL (0.11-0.59); %Eosinophils 1.9 % (0.0-10.0); %Lymphocytes 18.8 % (21.0-51.0); %Monocytes 3.5 % (0.0-10.0); %Neutrophils 75.9 % (42.0-75.0); Hemoglobin 10.5 g/dL (14.0-18.0); INR-International Normal Ratio 2.2; Mean Corpuscular HGB CONC 33.9 g/dL (32.0-36.0); Mean Corpuscular Hemoglobin 33.4 pg (27.0-31.0); Mean Corpuscular Volume 98.3 fl (80.0-94.0); Platelet Count 60 thou/uL (130-400); Prothrombin Time 24.8 SEC (12.0-14.7); RBC Distribution Width 13.2 % (11.5-14.5); Red Blood Cell (RBC) Count 3.16 mill/uL (4.70-6.10); White Blood Cell (WBC) Count 6.6 thou/uL (4.8-10.8)
[2017-06-07 14:04] LABS: PTT 77.8 SEC (22.9-36.1)
--- NOTE | 2017-06-07 14:07 | OP ---
DATE OF PROCEDURE: 06/07/2017 PROCEDURES PERFORMED: Left subclavian central line placement. A 21-mm Edd-Jules Perimount Magna aortic valve replacement and coronary artery bypass grafting x3 with left internal mammary artery to the distal LAD and reverse greater saphenous vein graft from the aorta to the obtuse marginal and to the the distal PDA. Ligation of left atrial appendage PREOPERATIVE DIAGNOSES: Aortic stenosis and coronary artery disease. POSTOPERATIVE DIAGNOSES: Aortic stenosis and coronary artery disease. SURGEON: Dr. Reyes. SEAT JOINER CHAINSTITCH: Dr. Looney. ANESTHESIA: General endotracheal anesthesia. INDICATIONS: The patient is a 77-year-old man with a long history of heart murmur, who had been having exertional dyspnea and chest pain for several months. He recently had a syncopal episode, and upon regaining consciousness, he had chest pain or pressure. He had a mildly positive troponin upon admission. Echocardiography demonstrated severe aortic stenosis and cardiac catheterization demonstrated severe 3-vessel coronary disease. He is now taken to the operating room for replacement of his aortic valve with a bioprosthesis and surgical revascularization of his coronaries. FINDINGS: Pump time 125 minutes, cross-clamp time 100 minutes. A good quality ALISTAIR and saphenous vein. The LAD distally was about a 1.5-2 mm good quality vessel with scattered plaquing in its mid portion. The obtuse marginal was a 2- 2.5 mm good quality vessel with some scattered plaque proximally. The PDA had diffusely scattered plaque distally where it was bypassed was 1-1.5 mm. The aortic valve was a 3-leaflet valve with heavy calcifications along the annulus. NARRATIVE REPORT: After informed consent was obtained, the patient was taken to the operating room and placed in supine position on the operating table. After induction of general anesthesia, the patient's left upper chest was prepped and draped in sterile fashion. A triple-lumen central line kit was used to place a left subclavian central line by the Seldinger technique. The patient's torso, groins, and lower extremities were then prepped and draped in sterile fashion. Saphenous vein was harvested from the left lower extremity from the groin to a little bit below the calf. Using a skin bridge technique, the harvest sites were closed in layers of Vicryl. A median sternotomy was performed. The left ALISTAIR was mobilized as a pedicle from the level of xiphoid to the level of subclavian vein through an extrapleural exposure. The patient was heparinized. The mammary was ligated and divided distally. There was good flow through the mammary, which was instilled intraluminally with papaverine solution. The mammary bed was inspected for hemostasis. The ALISTAIR retractor was replaced with a sternal retractor. The pericardium was opened and marsupialized. The aorta was palpated and was soft. A double concentric pursestring of 2-0 Ethibond was placed in the ascending aorta just beyond the pericardial reflection and a single pursestring was placed in the right atrial appendage. Aortic and venous cannulae were inserted and secured by their pursestrings. The plane between the aorta and the pulmonary artery was developed and cardiopulmonary bypass was instituted and the patient was allowed to systemically cool. The heart was examined. The vessels to be bypassed were identified. A longitudinal slit was made in the pericardium anterior to the left phrenic nerve source, so as the mammary pedicle could be passed. After mobilizing the hilar reflections of the left pleura an aortic cross-clamp was applied and cardioplegia was administered through an aortic root needle. When arrest had been achieved, attention was turned to the left atrial appendage. It was ligated by placing 2 rows of running horizontal mattress Prolene suture along its base. The obtuse marginal was then opened and saphenous vein was reversed and anastomosed their end-to-side with running Prolene suture and the anastomosis tested by flushing blood down the graft. The PDA was then opened distally and grafted in a similar fashion. The LAD was opened distally. The mammary was anastomosed there with running 7-0 Prolene, and the mammary pedicle tacked to the epicardium. Additional cardioplegia was then administered, and an oblique aortotomy was made about a fingerbreadth above the epicardial fat pad with a knife and scissors. The valve was examined, it was excised, the annulus debrided and irrigated and then sized. A 21 mm Jules [employer] Perimount Magna bovine pericardial prosthesis was selected while it was being rinsed. Valve sutures were placed in the annulus. These consisted of pledgeted 2-0 Ethibond sutures placed in a horizontal mattress fashion with the pledgets in the subannular position. The sutures were then passed through the sewing ring on the prosthesis, which was then seated and the valve sutures were secured with Cor-Knot device. The aortotomy was then closed from either apex with running 3-0 Prolene suture and cardioplegia was administered through the aortic root needle to help flush the root of air prior to securing that suture line. The PDA graft was brought along the right side of the heart and anastomosed to an aortotomy made in the ascending aorta with a scalpel and punched about the level of the junction of the superior cava with the right atrium. The obtuse marginal graft was anastomosed to the aorta distal to that. The sump vent that had been placed in the right superior pulmonary vein after cross-clamping was removed. De-airing maneuvers were performed, and under a Valsalva maneuver, the pursestring in the pulmonary vein was secured. The patient was placed in Trendelenburg and the root needle placed on suction. The aortic cross-clamp was removed. The vein grafts were deaired and the bulldog was removed from them. The anastomoses were inspected for hemostasis. The proximal anastomoses were marked with small Hemoclips. The posterior pericardial drain was brought out through separate incisions and secured with suture. Right atrial and right ventricular temporary epicardial pacing wires were placed. A pursestring was placed around the root needle, the needle removed, and its pursestring secured. The patient was then easily from cardiopulmonary bypass. Aortic and venous cannulas were removed, and the pursestring secured. Protamine was administered. When hemostasis was adequate , an anterior mediastinal drain was placed. The pericardium was loosely closed over with running Vicryl. The sternum was reapproximated with #7 stainless steel wires. The fascia closed over the wires with Vicryl. Subcutaneous tissue was irrigated and reapproximated. The skin was closed with Vicryl subcuticular stitch. The wounds were dressed and the patient taken to the Intensive Care Unit in good condition, [facility]
[2017-06-07 14:15] LABS: MDiff Complete? YES; PLT Morphology Comment Appears Decreased; Polychromasia SLIGHT = 2-3 cells (100X) (0-2/hpf)
[2017-06-07] MEDS ORDERED: Sodium Bicarb 50 MEQ/50 ML Abboject 8.4% SYRINGE ONE (14:16)
[2017-06-07 14:24] LABS: Anion Gap 9 mmol/L (10-20); BUN (Urea Nitrogen) 14 mg/dL (8.4-25.7); Calc. Creatinine Clearance 63 mL/min (70-130); Calcium 7.4 mg/dL (7.8-10.44); Carbon Dioxide 18 mmol/L (23-31); Chloride 117 mmol/L (98-107); Estimated GFR-MDRD 85; Glucose 113 mg/dL (83-110); Sodium 140 mmol/L (136-145)
[2017-06-07] MEDS ORDERED: Midazolam HCl 2 mg/2 ml Vial ONE (14:24)
[2017-06-07] MEDS ORDERED: Calcium Chloride 1 GM/10 ML Abboject SYRINGE IVP SCH (14:30)
[2017-06-07] MEDS ORDERED: Sodium Bicarb 50 MEQ/50 ML Abboject 8.4% SYRINGE IVP SCH (14:30)
[2017-06-07 14:32] LABS: Actual Bicarbonate (HCO3a) 23.3 mEq/L (22-26); Base Excess (BEa) -0.2 mEq/L (0 (+/-) 2.5); Hematocrit-ABG 19.9 % (42.0-52.0); O2 Tension (PaO2) 148.8 mmHg (80.0-100.0); pH, Arterial 7.47 (7.35-7.45)
[2017-06-07] MEDS ORDERED: Calcium Chloride 1 GM/10 ML Abboject SYRINGE ONE ×2 (14:32→15:13)
[2017-06-07 14:33] LABS: Calcium, Ionized 1.1 mmol/L (1.12-1.30); Puncture Site ALINE
[2017-06-07 14:46] LABS: INR-International Normal Ratio 2.6; Prothrombin Time 28.8 SEC (12.0-14.7)
[2017-06-07 14:47] LABS: PTT 97.5 SEC (22.9-36.1)
--- NOTE | 2017-06-07 14:52 | RAD ---
CHEST ONE VIEW: History: Heart surgery. Comparison: 06-02-17 FINDINGS: Cardiac silhouette is magnified and enlarged. Pulmonary vasculature is upper limits of normal. Patien t is slightly rotated rightward. Tip of an endotracheal catheter overlies the thoracic inlet. Tip of a left subclavian central venous catheter overlies the superior vena cava. Mediastinal drains overlie the lower mediastinum. Sternotomy wires are now in place. ekg monitor tech leads overlie the chest. IMPRESSION: 1. Interval post-operative changes mediastinum with lines and tubes as detailed above. POS: [facility]
[2017-06-07] MEDS ORDERED: Heparin 30,000 units/30 ml VIAL ONE (15:13)
[2017-06-07] MEDS ORDERED: Lidocaine 2% PF 100 mg/5 ml Syringe ONE (15:13)
[2017-06-07] MEDS ORDERED: Nitroglycerin 50 MG/250 ML BOT ONE (15:13)
[2017-06-07] MEDS ORDERED: Heparin 5,000 UNITS/ML VIAL ONE (15:13)
[2017-06-07] MEDS ORDERED: Sodium Bicarb 50 MEQ/50 ML VIAL ONE (15:13)
[2017-06-07] MEDS ORDERED: Aminocaproic Acid 5 GM/20 ML VIAL ONE (15:13)
[2017-06-07] MEDS ORDERED: Lidocaine 1% PF 5 ML VIAL ONE (15:13)
[2017-06-07] MEDS ORDERED: Protamine Sulfate 250 MG/25 ML VIAL ONE (15:13)
[2017-06-07] MEDS ORDERED: PHENYLEPHRINE-NS 100 MCG/ML 10 ML SYRINGE ONE (15:13)
[2017-06-07] MEDS ORDERED: Cardioplegic Soln 1,000 ML BAG ONE (15:13)
[2017-06-07] MEDS ORDERED: Papaverine 60 MG/2 ML VIAL ONE (15:13)
[2017-06-07] MEDS ORDERED: Magnesium 5 GM/10 ML VIAL ONE (15:13)
[2017-06-07] MEDS ORDERED: PROPOFOL 200 MG/20 ML VIAL ONE (15:13)
[2017-06-07] MEDS ORDERED: Potassium Chloride 60 MEQ/30 ML VIAL ONE (15:13)
[2017-06-07] MEDS ORDERED: Heparin 10,000 UNITS/1 ML VIAL ONE (15:55)
[2017-06-07 16:58] LABS: INR-International Normal Ratio 1.7; PTT 50.6 SEC (22.9-36.1); Prothrombin Time 20.5 SEC (12.0-14.7)
[2017-06-07 17:00] LABS: #Eosinphils 0.1 thou/uL (0.0-0.7); #Lymphocytes 0.8 thou/uL (1.20-3.40); #Monocytes 0.2 thou/uL (0.11-0.59); #Neutrophils 4.1 thou/uL (1.40-6.50); %Basophils 0.4 % (0.0-1.0); %Eosinophils 1.6 % (0.0-10.0); %Monocytes 4.1 % (0.0-10.0); Hemoglobin 8.6 g/dL (14.0-18.0); Mean Corpuscular HGB CONC 35.3 g/dL (32.0-36.0); Mean Corpuscular Hemoglobin 33.4 pg (27.0-31.0); Mean Corpuscular Volume 94.6 fl (80.0-94.0); Mean Platelet Volume 6.8 fL (7.4-10.4); Platelet Count 179 thou/uL (130-400); RBC Distribution Width 13.1 % (11.5-14.5); Red Blood Cell (RBC) Count 2.58 mill/uL (4.70-6.10); White Blood Cell (WBC) Count 5.2 thou/uL (4.8-10.8)
[2017-06-07] MEDS ORDERED: Communication Order-Pharmacy FS SCH (17:45)
[2017-06-07 18:47] LABS: #Eosinphils 0.1 thou/uL (0.0-0.7); #Lymphocytes 0.5 thou/uL (1.20-3.40); #Monocytes 0.4 thou/uL (0.11-0.59); #Neutrophils 3.5 thou/uL (1.40-6.50); %Basophils 0.4 % (0.0-1.0); %Eosinophils 1.5 % (0.0-10.0); %Lymphocytes 10.9 % (21.0-51.0); %Monocytes 8.6 % (0.0-10.0); %Neutrophils 78.6 % (42.0-75.0); Hemoglobin 9.2 g/dL (14.0-18.0); Mean Corpuscular HGB CONC 34.8 g/dL (32.0-36.0); Mean Corpuscular Volume 92.1 fl (80.0-94.0); Mean Platelet Volume 7.1 fL (7.4-10.4); Platelet Count 132 thou/uL (130-400); RBC Distribution Width 12.9 % (11.5-14.5); Red Blood Cell (RBC) Count 2.88 mill/uL (4.70-6.10); White Blood Cell (WBC) Count 4.4 thou/uL (4.8-10.8)
[2017-06-07 18:50] LABS: Base Excess (BEa) -3.6 mEq/L (0 (+/-) 2.5); CO2 Tension 35.9 mmHg (35.0-45.0); Hematocrit-ABG 23.6 % (42.0-52.0); Hemoglobin (Hb) 8.7 g/dL (14.0-18.0); O2 Tension (PaO2) 97.8 mmHg (80.0-100.0); pH, Arterial 7.39 (7.35-7.45)
[2017-06-07 18:51] LABS: ALV-art Gradient 142.525 (0-20); Puncture Site LINE
[2017-06-07] MEDS ORDERED: Propofol 1,000 MG/100 ML VIAL IV PRN (18:56)
[2017-06-07] MEDS ORDERED: Fentanyl BOLUS 250 ML IVPB PRN (18:56)
[2017-06-07] MEDS ORDERED: Lorazepam 2 MG/ML VIAL SLOW IVP PRN (18:56)
[2017-06-07] MEDS ORDERED: DISCONTINUE PREVIOUS NARCOTIC PAIN MEDICATIONS AND BENZODIAZEPINES FS SCH (18:56)
[2017-06-07] MEDS ORDERED: Morphine 2 MG/ML SYRINGE SLOW IVP PRN (18:56)
[2017-06-07] MEDS ORDERED: fentaNYL Citrate/PF 2,000 MCG in Sodium Chloride 0.9% 60 ML IV SCH (19:00)
[2017-06-07 19:07] LABS: Anion Gap 11 mmol/L (10-20); BUN (Urea Nitrogen) 13 mg/dL (8.4-25.7); Calc. Creatinine Clearance 55 mL/min (70-130); Carbon Dioxide 22 mmol/L (23-31); Chloride 115 mmol/L (98-107); Estimated GFR-MDRD 73; Glucose 179 mg/dL (83-110); Sodium 144 mmol/L (136-145)
[2017-06-07] MEDS: hydrALAZINE 20 MG/ML VIAL SLOW IVP PRN (19:53)
--- NOTE | 2017-06-07 20:37 | RAD ---
PORTABLE SUPINE CHEST: 06/07/17 HISTORY: Postop CABG. COMPARISON: Earlier exam of the same day. Endotracheal tube is in satisfactory position. Left subclavian line is unchanged in position. Aortic valve is noted. The heart size is enlarged. Lungs remain clear of any infiltrative process. IMPRESSION: Essentially stable chest. POS: [facility]
[2017-06-07] MEDS ORDERED: Famotidine/PF 20 mg/2ml Vial SLOW IVP SCH (21:00)
[2017-06-07 22:16] LABS: INR-International Normal Ratio 1.4; Prothrombin Time 17.8 SEC (12.0-14.7)
[2017-06-07 22:17] LABS: PTT 42.3 SEC (22.9-36.1)
--- NOTE | 2017-06-07 22:18 | OP ---
DATE OF PROCEDURE: 06/07/2017 PROCEDURE PERFORMED: Mediastinal reexploration. PREOPERATIVE DIAGNOSIS: Bleeding status post aortic valve replacement and coronary artery bypass grafting x3. POSTOPERATIVE DIAGNOSIS: Bleeding status post aortic valve replacement and coronary artery bypass grafting x3 with coagulopathy. SURGEON: Lamonte Reyes MD ANESTHESIA: General endotracheal anesthesia. INDICATIONS: The patient is a 77-year-old man, who underwent aortic valve replacement and coronary artery bypass grafting earlier today. Shortly postoperatively, clot was milked from one of his mediastinal tubes followed by about 200-250 mL of bloody drainage in very short order. By the end of an hour , he was up to nearly 500 mL of bloody drainage, although he appeared to be slowing over the course of the next hour; however, he had roughly another 500 mL of bloody drainage. Although coagulopathic, it was opted to return him to the operating room, given the volume of his drainage. FINDINGS: Coagulopathic ooze from multiple sites with no distinct bleeding points. NARRATIVE REPORT: After informing the patient's family of the postop events, he was returned to the operating room and placed in supine position on the operating table. General anesthesia was induced. His dressings were removed and his torso was prepped and draped in sterile fashion with the prep extending down to the knees. The sutures closing the soft tissues of the median sternotomy were cut with a knife and scissors. The sternal wires were cut and removed and a sternal retractor was put into place. There was bright red blood , superficial to the pericardium, but no bleeding noted from any surgical points of bleeding, the mammary bed was inspected. There was no clot there and there was no ongoing bleeding. There was no bleeding seen from the mammary pedicle that was outside the pericardium. The suture closing the pericardium was cut and stay sutures were put into place. There was oozing noted from one side of the right coronary proximal graft suture line, but no distinct bleeding points. There were no bleeding points noted on any of the vein grafts per se where deaired or any branches. There was diffuse ooze from the distal anastomosis of the PDA, but no distinct bleeding points. The mammary intrapericardially and its anastomosis appeared to be hemostatic. There was only a very tiny ooze noted at the obtuse marginal distal. There was no bleeding from the apex where an angiocatheter had been used to deair. The cannulation sites, the aortotomy suture line, the pursestrings in the pulmonary vein and at the root needle site all appeared to be hemostatic. There was considerable ongoing bloody rundown that gradually corrected with the administration of platelets and plasma. A topical hemostatic agents were applied to the oozing points on the various suture lines until hemostasis appeared to be adequate. A brief attempt was made at closing the pericardium, which the patient did not appear that he would tolerate well and that was abandoned. The sternum was reapproximated with #7 stainless steel wires. The fascia closed over the wires with heavy Vicryl. Subcutaneous tissue was irrigated and reapproximated and skin was closed with Vicryl subcuticular stitch. The wound was dressed and the patient was returned to the ICU in stable condition. MAHAMED
[2017-06-08 04:53] LABS: #Lymphocytes 0.5 thou/uL (1.20-3.40); #Monocytes 0.3 thou/uL (0.11-0.59); #Neutrophils 2.7 thou/uL (1.40-6.50); %Eosinophils 0.5 % (0.0-10.0); %Lymphocytes 14.2 % (21.0-51.0); %Monocytes 7.5 % (0.0-10.0); %Neutrophils 77.8 % (42.0-75.0); Hemoglobin 7.4 g/dL (14.0-18.0); INR-International Normal Ratio 1.5; Mean Corpuscular HGB CONC 33.5 g/dL (32.0-36.0); Mean Corpuscular Volume 92.6 fl (80.0-94.0); Mean Platelet Volume 7.5 fL (7.4-10.4); Platelet Count 133 thou/uL (130-400); RBC Distribution Width 13.5 % (11.5-14.5); Red Blood Cell (RBC) Count 2.38 mill/uL (4.70-6.10); White Blood Cell (WBC) Count 3.4 thou/uL (4.8-10.8)
[2017-06-08 04:58] LABS: Anion Gap 8 mmol/L (10-20); BUN (Urea Nitrogen) 14 mg/dL (8.4-25.7); Calc. Creatinine Clearance 49 mL/min (70-130); Calcium 7.5 mg/dL (7.8-10.44); Carbon Dioxide 26 mmol/L (23-31); Chloride 117 mmol/L (98-107); Estimated GFR-MDRD 64; Glucose 118 mg/dL (83-110); Potassium 3.8 mmol/L (3.5-5.1); Sodium 147 mmol/L (136-145)
--- NOTE | 2017-06-08 08:11 | RAD ---
PORTABLE CHEST ONE VIEW: Date: 06-08-17 Time: 5:09 a.m. History: Post op CABG. Respiratory failure. FINDINGS/IMPRESSION: There has been interval placement of nasogastric tube with tip in the direction of the gastric fundus . The remainder of the exam is otherwise stable. POS: [facility]
[2017-06-08] MEDS ORDERED: Metolazone 5 MG TAB PO SCH (08:45)
[2017-06-08] MEDS: hydrALAZINE 20 MG/ML VIAL SLOW IVP PRN ×2 (08:55→12:55)
[2017-06-08] MEDS: Furosemide 40 MG/4 ML VIAL SLOW IVP SCH ×2 (09:03→13:03)
[2017-06-08] MEDS: Sodium Chloride 0.9% 1,000 ML IV SCH (09:03)
--- NOTE | 2017-06-08 10:00 | PDOC.PN ---
- Subjective Encounter Start Date: 06/08/17 Encounter Start Time: 09:58 Mr. Farrell was seen today in follow-up. He is currently intubated, but he is awake and responsive. The events of last night were noted. - Objective Resuscitation Status: Resuscitation Status FULL:Full Resuscitation MAR Reviewed: Yes Vital Signs & Weight: Vital Signs (12 hours) Temp Pulse Resp BP 06/08/17 08:00 98.5 F 80 10 L 06/08/17 07:00 98.5 F 06/08/17 06:00 10 L 06/08/17 04:00 10 L 06/08/17 03:08 80 94/47 L 06/08/17 02:00 10 L 06/08/17 00:00 10 L 06/07/17 22:00 10 L Weight Weight 152 lb 5.431 oz Most Recent Monitor Data Heart Rate from ECG 80 NIBP 131/61 NIBP BP-Mean 90 Respiration from ECG 18 SpO2 100 I&O: 06/07/17 06/08/17 06/09/17 06:59 06:59 06:59 Intake Total 1436 3379 60 Output Total 950 3790 140 Balance 486 -411 -80 Result Diagrams: 06/08/17 04:00 06/08/17 04:00 Additional Labs: Accuchecks 06/08/17 06/07/17 06/07/17 02:04 21:48 18:51 POC Glucose 147 H 175 H 152 H 06/07/17 06/07/17 06/07/17 16:05 13:40 12:35 POC Glucose 179 H 115 H 127 H 06/07/17 06/07/17 06/07/17 11:43 10:37 08:11 POC Glucose 142 H 139 H 164 H Phys Exam - Physical Examination HEENT: PERRLA Respiratory: no wheezing + rhonchi, and coarse breath sounds Cardiovascular: RRR 2/6 systolic murmur, + friction rub at the apex Gastrointestinal: soft, non-tender, positive bowel sounds Musculoskeletal: no edema Dx/Plan (1) Critical aortic valve stenosis Code(s): I35.0 - NONRHEUMATIC AORTIC (VALVE) STENOSIS Status: Acute (2) Hypertension Code(s): I10 - ESSENTIAL (PRIMARY) HYPERTENSION Status: Acute (3) Diabetes mellitus type 2 in nonobese Code(s): E11.9 - TYPE 2 DIABETES MELLITUS WITHOUT COMPLICATIONS Status: Acute - Plan * Patient is s/p CABG- 3 vessel, with AVR. Patient had some bleeding, which required surgery to achieve hemostasis * He has received 2 untis platelets,6 units of FFP, and is now receiving his 9th unit of RBC's * Continue Ventilator support per Pulmonary * HTN- blood pressure has been a bit labile- continue PRN Hydralazine- he has received Lasix, which may help as well * DM- blood glucose is stable . * Continue as per CV- Surgery
[2017-06-08] MEDS ORDERED: Acetaminophen 325 MG TAB PO PRN (10:40)
[2017-06-08] MEDS ORDERED: Mag-Al 1200 mg/1200 mg/30 ML UDCUP PO PRN (10:41)
[2017-06-08] MEDS ORDERED: Bisacodyl 5 MG TAB PO PRN (10:41)
[2017-06-08] MEDS ORDERED: Bisacodyl 10 MG SUPP PR PRN (10:41)
[2017-06-08] MEDS ORDERED: Guaifenesin DM 100-10/5 ML UDCUP PO PRN (10:42)
[2017-06-08] MEDS ORDERED: Fentanyl 100 MCG/2 ML VIAL SLOW IVP PRN ×2 (10:42)
[2017-06-08] MEDS ORDERED: Hetastarch 6% 500 ML 500 ML IVPB PRN (10:42)
[2017-06-08] MEDS ORDERED: Norepinephrine 8 MG/0.9% NS 250 ML IVPB PRN (10:43)
[2017-06-08] MEDS ORDERED: HYDROcodone/Acetaminophen 5/325 mg Tablet PO PRN (10:43)
[2017-06-08] MEDS ORDERED: Nitroglycerin 50 MG/250 ML BOT 250 ML IVPB PRN (10:44)
[2017-06-08] MEDS ORDERED: Ondansetron HCl/PF 4 MG/2 ML Vial IVP PRN (10:44)
[2017-06-08] MEDS ORDERED: Potassium Chloride 20 MEQ/100 ML PREMIX BAG IVPB PRN (10:45)
[2017-06-08] MEDS ORDERED: Promethazine HCl 25 MG/ML VIAL IM PRN (10:45)
[2017-06-08] MEDS ORDERED: Dextrose 50% Abboject 50 ML SYRINGE SLOW IVP PRN (10:46)
[2017-06-08] MEDS ORDERED: Dextrose 5% in Water 1,000 ML IV PRN (10:46)
[2017-06-08] MEDS: Insulin Regular 300 UNITS/3 ML VIAL SC PRN ×2 (16:02→22:07)
[2017-06-08] MEDS: Enalaprilat Dihydrate 1.25 MG/ML VIAL SLOW IVP SCH ×2 (16:05→21:06)
[2017-06-08 20:05] LABS: Anion Gap 13 mmol/L (10-20); BUN (Urea Nitrogen) 15 mg/dL (8.4-25.7); Calc. Creatinine Clearance 43 mL/min (70-130); Calcium 8.2 mg/dL (7.8-10.44); Carbon Dioxide 24 mmol/L (23-31); Chloride 113 mmol/L (98-107); Estimated GFR-MDRD 49; Glucose 174 mg/dL (83-110); Potassium 3.6 mmol/L (3.5-5.1); Sodium 146 mmol/L (136-145)
[2017-06-08] MEDS: Famotidine/PF 20 mg/2ml Vial SLOW IVP SCH (21:07)
[2017-06-08] MEDS: niCARdipine HCl 25 MG in Sodium Chloride 0.9% 250 ML 240 ML IVPB PRN (22:20)
[2017-06-09] MEDS: Insulin Regular 300 UNITS/3 ML VIAL SC PRN ×5 (00:25→21:35)
[2017-06-09] MEDS: niCARdipine HCl 25 MG in Sodium Chloride 0.9% 250 ML 240 ML IVPB PRN (02:40)
--- NOTE | 2017-06-09 03:57 | CON ---
DATE OF CONSULTATION: 06/08/2017 HISTORY OF PRESENT ILLNESS: Mr. Farrell is a pleasant 77-year-old gentleman who had coronary bypass grafting yesterday. He had some postoperative bleeding issues and went back to the OR. He is oozing from multiple sites. No distinct bleeding points. He has done well postop since surger y, remained mechanically ventilated. I was consulted to assist in weaning from mechanical ventilation. PAST MEDICAL HISTORY: 1. Remarkable for admission for chest pain with syncope. 2. Diabetes. 3. Hypertension. 4. History of cardiomyopathy, apparently is visiting his family from [place] and had syncope at home prior to admission. FAMILY HISTORY: Negative for lung disease, but is positive for diabetes and hypertension. SOCIAL HISTORY: He is a nonsmoker, nondrinker. He does not use drugs. REVIEW OF SYSTEMS: Not obtainable since he is intubated. PHYSICAL EXAMINATION: When he was examined multiple times this morning, initially mechanically venti lated and had been on just pressor support and PEEP, he remained stable. VITAL SIGNS: Last blood pressure is 153/54, heart rate is 96, respiratory rate is 20. Intake and output reportedly was negative for 11 this morning. His chest tube drainage was 1790 mL. LUNGS: Clear. HEART: Regular rhythm. S1 and S2 are normal. ABDOMEN: Soft and nontender. EXTREMITIES: Without asymmetry. LABORATORY AND X-RAY FINDINGS: Chest radiograph reviewed by me is clear. White count 3.4, hemoglobi n 7.4, platelets 133. Sodium 147, potassium 3.8, chloride 117, bicarbonate 26, BUN 14, creatinine 1. 11. There is no blood gas today. IMPRESSION: Respiratory failure after coronary artery bypass grafting and returned back to the [facility] room. He also had an aortic valve replacement done with surgery. His bleeding appears to have subsided if not stopped. He was felt to be a candidate for extubation. He subsequently extubated and has been re-evaluated multiple times and is clinically stable post-extu bation with no respiratory or hemodynamic compromise. Critical care time 35 minutes.
[2017-06-09] MEDS: Enalaprilat Dihydrate 1.25 MG/ML VIAL SLOW IVP SCH ×4 (04:27→20:53)
[2017-06-09 04:59] LABS: #Lymphocytes 0.7 thou/uL (1.20-3.40); #Monocytes 0.8 thou/uL (0.11-0.59); #Neutrophils 6.9 thou/uL (1.40-6.50); %Basophils 0.1 % (0.0-1.0); %Eosinophils 0.1 % (0.0-10.0); %Lymphocytes 8.8 % (21.0-51.0); %Monocytes 8.9 % (0.0-10.0); %Neutrophils 82.1 % (42.0-75.0); Hemoglobin 9.2 g/dL (14.0-18.0); Mean Corpuscular HGB CONC 34.4 g/dL (32.0-36.0); Mean Corpuscular Hemoglobin 31.8 pg (27.0-31.0); Mean Corpuscular Volume 92.5 fl (80.0-94.0); Mean Platelet Volume 7.5 fL (7.4-10.4); PLT Morphology Comment Appears Decreased; Platelet Count 110 thou/uL (130-400); White Blood Cell (WBC) Count 8.4 thou/uL (4.8-10.8)
[2017-06-09 05:08] LABS: Anion Gap 12 mmol/L (10-20); BUN (Urea Nitrogen) 18 mg/dL (8.4-25.7); Calc. Creatinine Clearance 43 mL/min (70-130); Calcium 8.2 mg/dL (7.8-10.44); Carbon Dioxide 25 mmol/L (23-31); Chloride 114 mmol/L (98-107); Estimated GFR-MDRD 49; Glucose 160 mg/dL (83-110); Sodium 147 mmol/L (136-145)
[2017-06-09] MEDS ORDERED: Zolpidem Tartrate 5 MG TAB PO PRN (06:25)
[2017-06-09] MEDS ORDERED: diphenhydrAMINE 25 MG CAP PO PRN (06:25)
[2017-06-09] MEDS ORDERED: Artificial Tears 18 DROP/0.9 ML EA EYE PRN (06:25)
[2017-06-09] MEDS ORDERED: Mineral Oil ENEMA PR PRN (06:25)
[2017-06-09] MEDS ORDERED: Nitroglycerin 0.4 MG TAB 1 EACH SL PRN (06:25)
[2017-06-09] MEDS ORDERED: Bisacodyl 10 MG SUPP PR PRN (06:25)
[2017-06-09] MEDS ORDERED: Guaifenesin DM 100-10/5 ML UDCUP PO PRN (06:25)
[2017-06-09] MEDS ORDERED: Bisacodyl 5 MG TAB PO PRN (06:25)
[2017-06-09] MEDS ORDERED: Mag-Al 1200 mg/1200 mg/30 ML UDCUP PO PRN (06:25)
[2017-06-09] MEDS ORDERED: Milk Of Magnesia 30 ML UDCUP PO PRN (06:32)
[2017-06-09] MEDS ORDERED: Metolazone 5 MG TAB PO SCH (06:45)
--- NOTE | 2017-06-09 08:41 | RAD ---
PORTABLE UPRIGHT FRONTAL CHEST RADIOGRAPH: Date: 06-09-17 Comparison: 06-08-17 History: Evaluate chest follow CABG. FINDINGS: Endotracheal tube and nasogastric tube have been removed since the prior exam. Left sided vascular ca theter in place, distal tip overlying region of SVC. Midline sternotomy wires and evidence of mechani christopher aortic valve noted. There is hazy increased density in the right lung base suggesting airspace di sease/volume loss. There is partial consolidation/collapse of the left lower lobe. Small bilateral pl eural effusions cannot be excluded. Post-surgical drainage catheters overlie the midline epigastric r egion/inferior aspect of cardiac silhouette. IMPRESSION: Post-operative changes as above. Hazy bibasilar density for which follow up is advised. POS: BUFFY
--- NOTE | 2017-06-09 08:56 | PDOC.PN ---
- Subjective Encounter Start Date: 06/09/17 Encounter Start Time: 08:55 Mr. Farrell was seen today in follow-up. He has been extubated, and he is sitting up eating breakfast. He admits to a little shortness of breath. He has some chest soreness. - Objective Resuscitation Status: Resuscitation Status FULL:Full Resuscitation MAR Reviewed: Yes Vital Signs & Weight: Vital Signs (12 hours) Temp Pulse Resp BP 06/09/17 08:00 98.1 F 83 21 H 06/09/17 07:00 98.1 F 06/09/17 04:27 131/41 L 06/09/17 04:00 98.4 F 06/09/17 00:00 98.1 F 06/08/17 21:06 140/41 L Weight Weight 153 lb 0.013 oz Most Recent Monitor Data Heart Rate from ECG 88 NIBP 142/56 NIBP BP-Mean 108 Respiration from ECG 22 SpO2 97 I&O: 06/08/17 06/09/17 06/10/17 06:59 06:59 06:59 Intake Total 3379 2878.6 200 Output Total 3790 4492 10 Balance -411 -1613.4 190 Result Diagrams: 06/09/17 04:08 06/09/17 04:08 Additional Labs: Accuchecks 06/09/17 06/09/17 06/09/17 07:37 04:06 00:25 POC Glucose 170 H 156 H 160 H 06/08/17 06/08/17 06/08/17 15:52 11:57 09:58 POC Glucose 152 H 101 84 Phys Exam - Physical Examination HEENT: PERRLA + decreased breath sounds at the bases + rhonchi Cardiovascular: RRR + rub, but less prominent Gastrointestinal: soft, non-tender, positive bowel sounds Musculoskeletal: no edema Dx/Plan (1) Critical aortic valve stenosis Code(s): I35.0 - NONRHEUMATIC AORTIC (VALVE) STENOSIS Status: Acute (2) Hypertension Code(s): I10 - ESSENTIAL (PRIMARY) HYPERTENSION Status: Acute (3) Diabetes mellitus type 2 in nonobese Code(s): E11.9 - TYPE 2 DIABETES MELLITUS WITHOUT COMPLICATIONS Status: Acute - Plan * Severe Aortic Stenosis, as well as Coronary Artery disease- patient is s/p Aortic Valve replacement * Patient developed a coagulopathy post op, and has some bleeding. Hemostasis appears to have been achieved. He has received 9 untis of Packed RBC's and 6 unts of FFP, and 2 untis of platelets. His HGB is 9.2 this morning * DM- blood glucose is slightly elevated- will add a low dose Levemir * HTN- blood pressure is better today- continue Cozaar and Clonidine, and Hydralazine as needed. * Mobilize, and encourage Incentive Spirometry
[2017-06-09] MEDS ORDERED: Furosemide 40 MG TAB PO SCH (09:00)
[2017-06-09] MEDS ORDERED: Aspirin 325 MG TAB PO SCH (09:00)
[2017-06-09] MEDS ORDERED: Aspirin 325 mg Enteric Coated Tablet PO SCH (09:00)
[2017-06-09] MEDS ORDERED: Lidocaine 2% PF 100 mg/5 ml Syringe ONE (09:05)
[2017-06-09] MEDS ORDERED: Metoprolol Tartrate 5 MG/5 ML VIAL IVP SCH (09:15)
--- NOTE | 2017-06-09 09:23 | PRG ---
DATE OF SERVICE: 06/09/2017 Mr. Farrell is up walking in the halls, feeling better. PHYSICAL EXAMINATION: VITAL SIGNS: Blood pressure 120/70, pulse 80, it is sinus with frequent PACs. LUNGS: Clear. CARDIAC: Normal S1, S2. ASSESSMENT AND PLAN: Status post aortic valve replacement and bypass surgery, doing well. Continue to monitor.
[2017-06-09] MEDS: Losartan 25 MG TAB PO SCH (10:02)
[2017-06-09] MEDS: cloNIDine 0.1 MG TAB PO SCH ×2 (10:02→14:47)
[2017-06-09] MEDS: Potassium Chloride 10 MEQ TAB PO SCH ×2 (10:03→16:34)
[2017-06-09] MEDS: Furosemide 40 MG TAB PO SCH ×2 (10:03→14:44)
[2017-06-09] MEDS: HYDROcodone/Acetaminophen 5/325 mg Tablet PO PRN (10:04)
[2017-06-09] MEDS ORDERED: Insulin Detemir 100 UNITS/ML 8 UNITS in Pre-Filled Syringe 1 EACH SC SCH (12:00)
[2017-06-09] MEDS ORDERED: Metoprolol Tartrate 25 MG TAB PO SCH (14:30)
[2017-06-09] MEDS: Metoprolol Tartrate 25 MG TAB PO SCH (14:43)
--- NOTE | 2017-06-09 19:36 | PRG ---
DATE OF SERVICE: 06/09/2017 SUBJECTIVE: Mr. Farrell has no complaints. I asked him if he had any pain in [place], and he inform ed me that he did not. He denied also being short of breath. OBJECTIVE: VITAL SIGNS: He is afebrile. Blood pressure 131/41, heart rate in the 70s, respiratory rate in the teens. LUNGS: Clear. HEART: Regular rhythm. ABDOMEN: Soft and nontender. Intake and output is negative 1613. LABORATORY DATA: White count 8.4, hemoglobin 9.2, platelets 110,000. Sodium 147, potassium 4, chlor leana 114, bicarbonate 25, BUN 18, creatinine 1.41. IMPRESSION: 1. Status post coronary artery bypass grafting. 2. Status post perioperative bleeding. 3. Mild hyperchloremia secondary to volume resuscitation. 4. Diabetes. 5. Status post aortic valve replacement with his bypass. PLAN: Continue to monitor, he still has chest tubes in place and he will stay in the critical care [facility] for now.
[2017-06-09] MEDS: Atorvastatin Calcium 20 MG TAB PO SCH (21:35)
[2017-06-09] MEDS: Famotidine/PF 20 mg/2ml Vial SLOW IVP SCH (21:35)
[2017-06-10 04:26] LABS: Anion Gap 10 mmol/L (10-20); BUN (Urea Nitrogen) 34 mg/dL (8.4-25.7); Calc. Creatinine Clearance 38 mL/min (70-130); Calcium 8.6 mg/dL (7.8-10.44); Carbon Dioxide 28 mmol/L (23-31); Chloride 112 mmol/L (98-107); Estimated GFR-MDRD 42; Glucose 61 mg/dL (83-110); Potassium 3.9 mmol/L (3.5-5.1); Sodium 146 mmol/L (136-145)
[2017-06-10 04:29] LABS: #Eosinphils 0.1 thou/uL (0.0-0.7); #Lymphocytes 1.2 thou/uL (1.20-3.40); #Monocytes 0.6 thou/uL (0.11-0.59); #Neutrophils 7.3 thou/uL (1.40-6.50); %Basophils 0.1 % (0.0-1.0); %Eosinophils 0.9 % (0.0-10.0); %Monocytes 6.9 % (0.0-10.0); %Neutrophils 79.2 % (42.0-75.0); Hemoglobin 8.6 g/dL (14.0-18.0); Mean Corpuscular HGB CONC 33.3 g/dL (32.0-36.0); Mean Corpuscular Hemoglobin 31.3 pg (27.0-31.0); Mean Corpuscular Volume 94.1 fl (80.0-94.0); Platelet Count 102 thou/uL (130-400); RBC Distribution Width 13.8 % (11.5-14.5); Red Blood Cell (RBC) Count 2.75 mill/uL (4.70-6.10); White Blood Cell (WBC) Count 9.2 thou/uL (4.8-10.8)
[2017-06-10] MEDS: cloNIDine 0.1 MG TAB PO SCH ×4 (05:24→20:46)
[2017-06-10] MEDS: Metoprolol Tartrate 25 MG TAB PO SCH ×3 (05:24→20:47)
[2017-06-10] MEDS: Enalaprilat Dihydrate 1.25 MG/ML VIAL SLOW IVP SCH (05:27)
--- NOTE | 2017-06-10 08:37 | PRG ---
DATE OF SERVICE: 06/10/2017 Mr. Farrell is feeling better. He is up and around now. PHYSICAL EXAMINATION: VITAL SIGNS: Blood pressure is elevated at 160/70, pulse 86, but it has been lower. LUNGS: Clear. CARDIAC: Normal S1, normal S2. ASSESSMENT: Status post bypass surgery and valve replacement. PLAN: 1. Continue beta-alejandro. 2. Continue angiotensin receptor alejandro. 3. He should be able to go out to the floor.
[2017-06-10] MEDS: Aspirin 81 mg Enteric Coated Tablet PO SCH (08:39)
[2017-06-10] MEDS: Potassium Chloride 10 MEQ TAB PO SCH ×2 (08:39→18:27)
[2017-06-10] MEDS: Furosemide 40 MG TAB PO SCH ×2 (08:40→14:44)
[2017-06-10] MEDS: Losartan 25 MG TAB PO SCH (08:40)
[2017-06-10] MEDS: Insulin Detemir 100 UNITS/ML 8 UNITS in Pre-Filled Syringe 1 EACH SC SCH (11:09)
[2017-06-10] MEDS: Insulin Regular 300 UNITS/3 ML VIAL SC PRN ×2 (11:31→18:30)
--- NOTE | 2017-06-10 12:24 | PDOC.PN ---
- Subjective Encounter Start Date: 06/10/17 Encounter Start Time: 10:30 Pt with soreness to chest. No F/C, no n/V/D/c 10 point ROS attempted, unsure of reliability due to my weak kyrgyz - Objective Resuscitation Status: Resuscitation Status FULL:Full Resuscitation MAR Reviewed: Yes Vital Signs & Weight: Vital Signs (12 hours) Temp Pulse Pulse Pulse Resp BP BP 06/10/17 12:00 98.2 F 06/10/17 08:40 142/66 H 06/10/17 08:16 87 88 142/66 H 06/10/17 08:00 96.3 F L 75 20 06/10/17 05:27 126/61 06/10/17 05:24 109/60 06/10/17 04:00 97.7 F 75 20 BP BP Pulse Ox Pulse Ox Pulse Ox 06/10/17 12:00 06/10/17 08:40 06/10/17 08:16 162/69 H 98 96 06/10/17 08:00 95 06/10/17 05:27 06/10/17 05:24 06/10/17 04:00 126/61 Weight Weight 150 lb 9.211 oz Most Recent Monitor Data Heart Rate from ECG 80 NIBP 144/70 NIBP BP-Mean 79 Respiration from ECG 18 SpO2 95 I&O: 06/09/17 06/10/17 06/11/17 06:59 06:59 06:59 Intake Total 2878.6 800 360 Output Total 4492 3315 555 Balance -1613.4 -2515 -195 Result Diagrams: 06/10/17 03:55 06/10/17 03:55 Additional Labs: Accuchecks 06/10/17 06/10/17 06/10/17 11:09 05:19 00:43 POC Glucose 251 H 71 104 06/09/17 06/09/17 06/09/17 19:52 15:59 12:14 POC Glucose 142 H 192 H 191 H 06/08/17 22:06 POC Glucose 167 H Radiology Reviewed by me: Yes EKG Reviewed by me: Yes Phys Exam - Physical Examination Constitutional: NAD HEENT: PERRLA, moist MMs, sclera anicteric, oral pharynx no lesions Neck: no nodes, no JVD, supple, full ROM Respiratory: no wheezing, no rales, no rhonchi, clear to auscultation bilateral Cardiovascular: RRR, no significant murmur, no rub Ao valve sounds excellent Gastrointestinal: soft, non-tender, no distention, positive bowel sounds Musculoskeletal: pulses present, edema present Neurological: non-focal, normal sensation, moves all 4 limbs Lymphatic: no nodes Psychiatric: normal affect, A&O x 3 Skin: no rash, normal turgor, cap refill <2 seconds Deviation from normal: incision C/D/i Dx/Plan (1) Macrocytic anemia Code(s): D53.9 - NUTRITIONAL ANEMIA, UNSPECIFIED Status: Acute Comment: present on admit - on B12 and folate. transfused, too late for studies for now (2) Critical aortic valve stenosis Code(s): I35.0 - NONRHEUMATIC AORTIC (VALVE) STENOSIS Status: Resolved Comment: s/p AVR by Dr Reyes (3) Diabetes mellitus type 2 in nonobese Code(s): E11.9 - TYPE 2 DIABETES MELLITUS WITHOUT COMPLICATIONS Status: Chronic (4) Hypertension Code(s): I10 - ESSENTIAL (PRIMARY) HYPERTENSION Status: Chronic Qualifiers: Hypertension type: essential hypertension Qualified Code(s): I10 - Essential (primary) hypertension - Plan cont current plan of care, PT/OT, respiratory therapy, incentive spirometry, out of bed/ambulate, DVT proph w/SCDs * .
--- NOTE | 2017-06-10 13:07 | PRG ---
DATE OF SERVICE: 06/10/2017 Mr. Farrell has no complaints. PHYSICAL EXAMINATION: VITAL SIGNS: He is afebrile, heart rate 80. Blood pressure 144/70, respiratory rate 18. LUNGS: Clear. HEART: Regular rhythm. ABDOMEN: Soft, mediastinal tubes are out. LABORATORY DATA: Hemoglobin is stable at 8.6, white count 9.2, platelets 102,000. Sodium 146, pota ssium 3.9, chloride 112, bicarbonate 20, BUN 35, creatinine 1.59. IMPRESSION: 1. Status post coronary bypass grafting and aortic valve replacement, clinically stable. 2. Status post repeat operation secondary to mediastinal bleeding. Just diffuse oozing was identifi ed. No point bleeding was reportedly identified. He will be transferred out once Cardiothoracic Surgery is comfortable with this.
[2017-06-10] MEDS: hydrALAZINE 20 MG/ML VIAL SLOW IVP PRN (18:26)
[2017-06-10] MEDS: Atorvastatin Calcium 20 MG TAB PO SCH (20:46)
[2017-06-10] MEDS: HYDROcodone/Acetaminophen 5/325 mg Tablet PO PRN (20:47)
[2017-06-10] MEDS: Famotidine/PF 20 mg/2ml Vial SLOW IVP SCH (20:47)
[2017-06-11 06:20] LABS: #Eosinphils 0.2 thou/uL (0.0-0.7); #Lymphocytes 1.2 thou/uL (1.20-3.40); #Monocytes 0.5 thou/uL (0.11-0.59); #Neutrophils 5.1 thou/uL (1.40-6.50); %Eosinophils 2.3 % (0.0-10.0); %Lymphocytes 17.6 % (21.0-51.0); %Monocytes 7.5 % (0.0-10.0); %Neutrophils 72.6 % (42.0-75.0); Hemoglobin 9.5 g/dL (14.0-18.0); Mean Corpuscular HGB CONC 33.8 g/dL (32.0-36.0); Mean Corpuscular Hemoglobin 31.8 pg (27.0-31.0); Mean Corpuscular Volume 94.1 fl (80.0-94.0); Mean Platelet Volume 8.2 fL (7.4-10.4); Platelet Count 125 thou/uL (130-400); RBC Distribution Width 13.2 % (11.5-14.5); Red Blood Cell (RBC) Count 2.97 mill/uL (4.70-6.10); White Blood Cell (WBC) Count 7.1 thou/uL (4.8-10.8)
[2017-06-11 06:42] LABS: Anion Gap 12 mmol/L (10-20); BUN (Urea Nitrogen) 45 mg/dL (8.4-25.7); Calc. Creatinine Clearance 40 mL/min (70-130); Calcium 8.6 mg/dL (7.8-10.44); Carbon Dioxide 28 mmol/L (23-31); Chloride 107 mmol/L (98-107); Estimated GFR-MDRD 45; Glucose 135 mg/dL (83-110); Potassium 4.3 mmol/L (3.5-5.1); Sodium 143 mmol/L (136-145)
[2017-06-11] MEDS ORDERED: Milk Of Magnesia 30 ML UDCUP PO PRN (07:24)
[2017-06-11] MEDS: Potassium Chloride 10 MEQ TAB PO SCH ×2 (09:56→17:25)
[2017-06-11] MEDS: Aspirin 81 mg Enteric Coated Tablet PO SCH (09:57)
[2017-06-11] MEDS: Famotidine 20 MG TAB PO SCH (09:57)
[2017-06-11] MEDS: Metoprolol Tartrate 25 MG TAB PO SCH ×2 (09:57→20:31)
[2017-06-11] MEDS: Losartan 25 MG TAB PO SCH (09:58)
[2017-06-11] MEDS: Furosemide 40 MG TAB PO SCH ×2 (09:58→15:46)
[2017-06-11] MEDS: cloNIDine 0.1 MG TAB PO SCH ×3 (09:58→20:31)
[2017-06-11] MEDS: Insulin Detemir 100 UNITS/ML 8 UNITS in Pre-Filled Syringe 1 EACH SC SCH (09:59)
--- NOTE | 2017-06-11 15:29 | PDOC.PN ---
- Subjective Encounter Start Date: 06/11/17 Encounter Start Time: 10:55 Pt transferred to floor, doing well, no CP except soreness, no FC, no n/V/D/C Family at bedside, updated. Awaitiing CT surgery and cardioloy clearance to discharge. Unclear if rehab or home is the current plan 10 point ROS performed and neg for all systems except as above - Objective Resuscitation Status: Resuscitation Status FULL:Full Resuscitation MAR Reviewed: Yes Vital Signs & Weight: Vital Signs (12 hours) Temp Pulse Pulse Pulse Resp BP BP 06/11/17 12:58 68 55 L 178/84 H 06/11/17 09:58 168/76 H 06/11/17 08:49 81 69 179/77 H 06/11/17 08:20 98.1 F 75 20 06/11/17 04:00 97.8 F 57 L 20 BP BP Pulse Ox Pulse Ox Pulse Ox 06/11/17 12:58 129/68 93 L 95 06/11/17 09:58 06/11/17 08:49 166/74 H 94 L 94 L 06/11/17 08:20 168/76 H 94 L 06/11/17 04:00 151/77 H 95 Weight Weight 150 lb 8 oz Most Recent Monitor Data Heart Rate from ECG 79 NIBP 133/69 NIBP BP-Mean 76 Respiration from ECG 18 SpO2 95 I&O: 06/10/17 06/11/17 06/12/17 06:59 06:59 06:59 Intake Total 800 710 Output Total 3315 1055 Balance -8695 -345 Result Diagrams: 06/11/17 05:29 06/11/17 05:29 Additional Labs: Accuchecks 06/11/17 06/10/17 06/10/17 05:54 20:26 18:19 POC Glucose 141 H 254 H 127 H Radiology Reviewed by me: Yes EKG Reviewed by me: Yes Phys Exam - Physical Examination Constitutional: NAD HEENT: PERRLA, moist MMs, sclera anicteric, oral pharynx no lesions Neck: no nodes, no JVD, supple, full ROM Respiratory: no wheezing, no rales, no rhonchi, clear to auscultation bilateral Cardiovascular: RRR, no significant murmur, no rub Gastrointestinal: soft, non-tender, no distention, positive bowel sounds Musculoskeletal: pulses present, edema present Neurological: non-focal, normal sensation, moves all 4 limbs Lymphatic: no nodes Psychiatric: normal affect, A&O x 3 Skin: no rash, normal turgor, cap refill <2 seconds Deviation from normal: sternotomy incision C/D/I Dx/Plan (1) Macrocytic anemia Code(s): D53.9 - NUTRITIONAL ANEMIA, UNSPECIFIED Status: Acute Comment: present on admit - on B12 and folate. transfused, too late for studies for now (2) Critical aortic valve stenosis Code(s): I35.0 - NONRHEUMATIC AORTIC (VALVE) STENOSIS Status: Resolved Comment: s/p AVR by Dr Reyes (3) Diabetes mellitus type 2 in nonobese Code(s): E11.9 - TYPE 2 DIABETES MELLITUS WITHOUT COMPLICATIONS Status: Chronic (4) Hypertension Code(s): I10 - ESSENTIAL (PRIMARY) HYPERTENSION Status: Chronic Qualifiers: Hypertension type: essential hypertension Qualified Code(s): I10 - Essential (primary) hypertension - Plan cont current plan of care, PT/OT, incentive spirometry, out of bed/ambulate, DVT proph w/lovenox * .
--- NOTE | 2017-06-11 18:10 | PRG ---
DATE OF SERVICE: 06/11/2017 SERVICE: Pulmonary Medicine. INTERVAL HISTORY: The patient is doing really well from a breathing standpoint. He is breathing com fortably. He denies any current fevers or chills. He is eating well. He has no nausea, vomiting or diarrhea. He has not had any constipation. His bowels are working. He has been working with physi christopher therapy to the best of his ability. Otherwise, there has been no interval change to his conditio n. PHYSICAL EXAMINATION: VITAL SIGNS: Afebrile, pulse 168/76, respirations 14, saturation 95% on room air. GENERAL: Patient is awake, alert, in no apparent distress. LUNGS: Decent air entry. There is no prolonged expiratory phase. Dependent crackles are minimal. HEART: Normal rate, regular. ABDOMEN: Soft, nontender, and nondistended. Bowel sounds are positive. MUSCULOSKELETAL: No cyanosis or clubbing. No pitting in the bilateral lower extremities. NEUROLOGIC: Grossly nonfocal. EXTREMITIES: No cyanosis or clubbing. There is 1+ pitting in the bilateral lower extremities and sl ightly more pronounced in the left leg. LABORATORY DATA: WBC 7.1, hemoglobin 9.5, and platelets 125,000. Creatinine 1.50 and roughly stable . Sodium 143. Basic metabolic profile is otherwise unremarkable. ASSESSMENT: 1. Acute hypoxic respiratory failure, resolved. 2. Coronary artery disease, status post coronary artery bypass graft. 3. Aortic stenosis, status post aortic valve replacement. 4. Acute blood loss anemia secondary to mediastinal bleed, status post redo without significant sour ce identified. PLAN: At this point, the patient is doing really quite well from a respiratory and cardiovascular st andpoint. He has been able to work with physical therapy. He is on room air. He has no further req uirements for inpatient Pulmonary or Critical Care opinion. As such, I will sign off. Please call w ith additional questions or concerns or if the patient's condition deteriorates.
[2017-06-11] MEDS: Atorvastatin Calcium 20 MG TAB PO SCH (20:31)
[2017-06-12 06:50] LABS: Anion Gap 11 mmol/L (10-20); BUN (Urea Nitrogen) 46 mg/dL (8.4-25.7); Calc. Creatinine Clearance 34 mL/min (70-130); Calcium 8.9 mg/dL (7.8-10.44); Carbon Dioxide 31 mmol/L (23-31); Chloride 101 mmol/L (98-107); Estimated GFR-MDRD 45; Glucose 131 mg/dL (83-110); Potassium 4.2 mmol/L (3.5-5.1); Sodium 139 mmol/L (136-145)
[2017-06-12] MEDS: Insulin Detemir 100 UNITS/ML 8 UNITS in Pre-Filled Syringe 1 EACH SC SCH (09:19)
[2017-06-12] MEDS: Potassium Chloride 10 MEQ TAB PO SCH (09:25)
[2017-06-12] MEDS: Aspirin 81 mg Enteric Coated Tablet PO SCH (09:27)
[2017-06-12] MEDS: cloNIDine 0.1 MG TAB PO SCH (09:28)
[2017-06-12] MEDS: Metoprolol Tartrate 25 MG TAB PO SCH (09:30)
[2017-06-12] MEDS: Losartan 25 MG TAB PO SCH (09:30)
[2017-06-12] MEDS: Famotidine 20 MG TAB PO SCH (09:31)
[2017-06-12] MEDS: Furosemide 40 MG TAB PO SCH (09:31)
[2017-06-12 13:12] VITALS: BP 149/77; TEMP 97.5
--- NOTE | 2017-06-12 13:51 | PRG ---
DATE OF SERVICE: 06/12/2017 SUBJECTIVE: Mr. Farrell is doing well. He states he is ambulating and sitting up in a chair. OBJECTIVE: VITAL SIGNS: Blood pressure 149/77, pulse 59, temperature 97.5. LUNGS: Clear to auscultation. CARDIAC: Regular rate and rhythm. ABDOMEN: Soft, nontender, nondistended. EXTREMITIES: No edema. PERTINENT CARDIOVASCULAR MEDICATIONS: Aspirin, atorvastatin, metoprolol. IMPRESSION: 1. Coronary artery disease, status post bypass surgery. 2. Aortic valve replacement. RECOMMENDATIONS: 1. Continue to ambulate and incentive spirometry. 2. Continue CV medications as described above.
--- NOTE | 2017-06-12 15:27 | DIS ---
DATE OF ADMISSION: 06/02/2017 DATE OF DISCHARGE: 06/12/2017 PRIMARY CARE PHYSICIAN: None. CARDIOTHORACIC SURGEON: Lamonte Reyes M.D. FORK ASSEMBLER: Randall Lopez M.D. PULMONARY: Mainor Verde M.D. DISCHARGE DIAGNOSES: 1. Critical aortic stenosis. 2. Symptomatic coronary artery disease. 3. Status post aortic valve replacement. 4. Status post coronary artery bypass grafting. 5. Diabetes mellitus type 2. 6. Hypertension. 7. Hyperlipidemia. 8. Macrocytic anemia. CONSULTATIONS: 1. Pulmonary Critical Care, Dr. Mainor Verde, followed by Dr. Son Mccarty. 2. Cardiology, Dr. Randall Lopez, followed by Dr. Neto Jovel. 3. Cardiothoracic Surgery, Dr. Lamonte Reyes, followed by Dr. Philip Zaragoza. PROCEDURES: 1. Transthoracic echocardiogram done on 06/03/2017 that showed aortic valve area 0.6-0.7 cm2, severe aortic stenosis, peak gradient of 64-70 mmHg and mean gradient over 40 mmHg across the aortic valve. 2. Left subclavian central line placement by Dr. Reyes. 3. On 06/07/2017, mediastinal reexploration secondary to bleeding, status post aortic valve replacem ent, coronary artery bypass grafting x3 vessels. 4. On 06/07/2017, the patient had aortic valve replacement with a 21 mm Edd-Jules PERIMOUNT Magna aortic valve and coronary artery bypass grafting x3 vessel with GARZA to the distal LAD, revers e saphenous vein graft from the aorta to the obtuse marginal and to the distal PDA and ligation of th e left atrial appendage. HISTORY AND PHYSICAL: Mr. Farrell is a 77-year-old male with the above history who pr esented to the emergency department on 06/02/2017 with dizziness and syncope. He is visiting his fam niru, as he is from [place], and after passing out, was diaphoretic. He complained of chest pain, naus ea and diaphoresis and was brought to the emergency department for evaluation via EMS. On arrival, there was concern about STEMI, due to depression in inferior leads in II, III, and aVF, b ut EKG here showed no evidence of ST elevation AR. We were called for admission for further workup. HOSPITAL COURSE: The patient was seen and examined by Dr. Edy Hines, he was placed on the teleme try floor for monitoring and echo was ordered. Patient did have chest pains. Serial cardiac biomark ers were elevated, he was started on Coreg, Lovenox and Cardiology consulted. Overnight 06/02/2017 t o 06/03/2017, the patient remained fairly stable. He was seen by Dr. Lopez in the morning and noted a transthoracic echo does show EF of 50%-55%, but did not agree with the measured gradient across th e aortic valve. That afternoon, the patient was seen by Dr. Reyes, presyncope and chest pain a nd aortic valve stenosis, the patient was felt to have severe 3-vessel disease and angina with dyspne a on exertion and syncopal episode. He recommended proceeding with bioprosthetic aortic valve and co ronary artery bypass grafting. Arrangements were made. The patient was prepped and taken to the operating room 06/08/2017 and surgery was performed. Postop , the patient has been bleeding and so his chest had to be reexplored and the mediastinum reexplored and was found to have a bleeding vessel. This was taken care of. The patient remained stable postop . He was transferred to the ICU for postoperative care. From 06/09/2017 to 06/12/2017, the patient improved, he was transferred to the floor on 06/11/2017 for continued care and on 06/12/2017 was stab le for discharge from a Cardiothoracic Surgery standpoint. PHYSICAL EXAMINATION: The patient was seen and examined on the day of discharge. Discharge plan and disposition was discussed with the patient face to face in the presence of his fam niru who can interpret. DISCHARGE MEDICATIONS: 1. Clonidine 0.1 mg p.o. t.i.d. 2. Metoprolol tartrate 25 mg p.o. b.i.d. 3. Losartan 50 mg p.o. daily. 4. Levemir 80 units subcu at bedtime. 5. Hydrocodone 5/325 1-2 q.4 hours p.r.n. pain. 6. Atorvastatin 20 mg p.o. at bedtime. 7. Aspirin 81 mg daily. FOLLOWUP APPOINTMENTS: The patient is to establish primary care physician. Follow up with Dr. Reyes within 2 weeks. Follow up with Cardiology per their recommendations a t their clinic. DISCHARGE CONDITION: Stable. DISPOSITION: Being discharged home via private vehicle for outpatient cardiac rehabilitation. DISCHARGE ACTIVITY: Per cardiopulmonary limits. Instructions were given. DISCHARGE DIET: Heart healthy diabetic diet recommended.
[2017-06-20 07:28] LABS: Actual Bicarbonate (HCO3a) 21.3 mEq/L (22-26); Base Excess (BEa) -2.1 mEq/L (0 (+/-) 2.5); CO2 Tension 31.3 mmHg (35.0-45.0); Hematocrit-ABG 27.1 % (42.0-52.0); Hemoglobin (Hb) 9.1 g/dL (14.0-18.0); O2 Tension (PaO2) 472.5 mmHg (80.0-100.0); pH, Arterial 7.45 (7.35-7.45)
[2017-06-20 07:29] LABS: Analyzer IN Cardio OR; Calcium, Ionized 1.2 mmol/L (1.12-1.30); Puncture Site ALINE
[2017-06-20 07:30] LABS: CO2 Tension 25.3 mmHg (35.0-45.0)
[2017-06-20 07:31] LABS: Actual Bicarbonate (HCO3a) 19.1 mEq/L (22-26); Analyzer IN Cardio OR; Base Excess (BEa) -2.9 mEq/L (0 (+/-) 2.5); Calcium, Ionized 1.1 mmol/L (1.12-1.30); Hemoglobin (Hb) 10.9 g/dL (14.0-18.0); O2 Tension (PaO2) 363.7 mmHg (80.0-100.0)
[2017-06-20 07:32] LABS: Puncture Site ALINE
[2017-06-20 07:32] LABS: Actual Bicarbonate (HCO3v) 22 mEq/L (22-26); Analyzer IN Cardio OR; Base Excess -2.9 mEq/L (0 (+/- 2.5)); Hematocrit-VBG 15.1 % (37-51); Hemoglobin (Hb) 5.2 g/dL (12.6-17.4); pH (venous) 7.39 (7.35-7.45)
[2017-06-20 07:33] LABS: Calcium, Ionized 0.94 mmol/L (1.16-1.32); Chloride (ABG LAB) 106 mmol/L (98-106); Potassium - ABG Lab 3.3 mmol/L (3.70-5.30); Sodium 140.4 mmol/L (133-146)
[2017-06-20 07:33] LABS: CO2 Tension 41.2 mmHg (35.0-45.0); pH, Arterial 7.33 (7.35-7.45)
[2017-06-20 07:34] LABS: Actual Bicarbonate (HCO3a) 21.1 mEq/L (22-26); Base Excess (BEa) -4.5 mEq/L (0 (+/-) 2.5); Hematocrit-ABG 18.7 % (42.0-52.0); Hemoglobin (Hb) 6.6 g/dL (14.0-18.0); O2 Tension (PaO2) 330.1 mmHg (80.0-100.0)
[2017-06-20 07:35] LABS: Actual Bicarbonate (HCO3a) 23.2 mEq/L (22-26); Base Excess (BEa) -1.2 mEq/L (0 (+/-) 2.5); CO2 Tension 36.9 mmHg (35.0-45.0); Hematocrit-ABG 18.6 % (42.0-52.0); Hemoglobin (Hb) 6.7 g/dL (14.0-18.0); O2 Tension (PaO2) 357.4 mmHg (80.0-100.0); pH, Arterial 7.42 (7.35-7.45)
[2017-06-20 07:35] LABS: Analyzer IN Cardio OR; Puncture Site ALINE
[2017-06-20 07:36] LABS: Analyzer IN Cardio OR; Puncture Site ALINE
[2017-06-20 07:36] LABS: CO2 Tension 32.2 mmHg (35.0-45.0); O2 Tension (PaO2) 448.8 mmHg (80.0-100.0); pH, Arterial 7.42 (7.35-7.45)
[2017-06-20 07:37] LABS: Actual Bicarbonate (HCO3a) 20.5 mEq/L (22-26); Analyzer IN Cardio OR; Base Excess (BEa) -3.6 mEq/L (0 (+/-) 2.5); Calcium, Ionized 0.9 mmol/L (1.12-1.30); Hematocrit-ABG 16.4 % (42.0-52.0); Hemoglobin (Hb) 6.5 g/dL (14.0-18.0); Puncture Site ALINE
[2017-06-20 07:38] LABS: CO2 Tension 31.6 mmHg (35.0-45.0); pH, Arterial 7.39 (7.35-7.45)
[2017-06-20 07:43] LABS: Actual Bicarbonate (HCO3a) 18.7 mEq/L (22-26)
[2017-06-20 07:44] LABS: Analyzer IN Cardio OR; Base Excess (BEa) -5.4 mEq/L (0 (+/-) 2.5); Calcium, Ionized 1.1 mmol/L (1.12-1.30); Hematocrit-ABG 24.4 % (42.0-52.0); Hemoglobin (Hb) 9.4 g/dL (14.0-18.0); Puncture Site ALINE
--- NOTE | 2017-08-08 21:09 | EKG ---
Test Reason : Blood Pressure : / mmHG Vent. Rate : 066 BPM Atrial Rate : 066 BPM P-R Int : 164 ms QRS Dur : 100 ms QT Int : 382 ms P-R-T Axes : 045 012 -22 degrees QTc Int : 400 ms Normal sinus rhythm Left ventricular hypertrophy with repolarization abnormality Cannot rule out Inferior infarct , age undetermined Abnormal ECG When compared with ECG of 02-JUN-2017 22:48, Nonspecific T wave abnormality now evident in Lateral leads Confirmed by MARY VALDES M.D. ([id number]) on 08/08/2017 9:09:17 PM Referred By: ALEX Confirmed By:MARY VALDES M.D.
--- NOTE | 2017-08-08 21:30 | EKG ---
Test Reason : POST CABG Blood Pressure : / mmHG Vent. Rate : 063 BPM Atrial Rate : 063 BPM P-R Int : 166 ms QRS Dur : 110 ms QT Int : 462 ms P-R-T Axes : 036 023 -43 degrees QTc Int : 472 ms Normal sinus rhythm Left ventricular hypertrophy with repolarization abnormality Abnormal ECG Confirmed by MARY VALDES M.D. ([id number]) on 08/08/2017 9:30:10 PM Referred By: ALEX Confirmed By:MARY VALDES M.D.
== END 2017-06-12 15:00 | disposition home or self-care (01) | DRG 216 ==
LOC: ERS 22:44 → 2NO 23:15 → CCU 06-07 07:09 → 2NO 06-10 13:47
PROVIDERS: ADMIT Internal Medicine; ATTEND Internal Medicine
PROC: 4A023N7 Measurement of Cardiac Sampling and Pressure, Left Heart, Percutaneous Approach (ICD-10-PCS; 2017-06-06)
PROC: B2111ZZ Fluoroscopy of Multiple Coronary Arteries using Low Osmolar Contrast (ICD-10-PCS; 2017-06-06)
PROC: B2151ZZ Fluoroscopy of Left Heart using Low Osmolar Contrast (ICD-10-PCS; 2017-06-06)
PROC: 02RF08Z Replacement of Aortic Valve with Zooplastic Tissue, Open Approach (ICD-10-PCS; principal; 2017-06-07)
PROC: 02100Z9 Bypass Coronary Artery, One Artery from Left Internal Mammary, Open Approach (ICD-10-PCS; 2017-06-07)
PROC: 021109W Bypass Coronary Artery, Two Arteries from Aorta with Autologous Venous Tissue, Open Approach (ICD-10-PCS; 2017-06-07)
PROC: 06BQ0ZZ Excision of Left Saphenous Vein, Open Approach (ICD-10-PCS; 2017-06-07)
PROC: 0W3C0ZZ Control Bleeding in Mediastinum, Open Approach (ICD-10-PCS; 2017-06-07)
PROC: 02HV33Z Insertion of Infusion Device into Superior Vena Cava, Percutaneous Approach (ICD-10-PCS; 2017-06-07)
PROC: 5A1221Z Performance of Cardiac Output, Continuous (ICD-10-PCS; 2017-06-07)
PROC: 02L70ZK Occlusion of Left Atrial Appendage, Open Approach (ICD-10-PCS; 2017-06-07)
PROC: 30233N1 Transfusion of Nonautologous Red Blood Cells into Peripheral Vein, Percutaneous Approach (ICD-10-PCS; 2017-06-08)
PROC: 30233R1 Transfusion of Nonautologous Platelets into Peripheral Vein, Percutaneous Approach (ICD-10-PCS; 2017-06-08)
DX: I35.0 Nonrheumatic aortic (valve) stenosis (principal); J96.01 Acute respiratory failure with hypoxia; I21.4 Non-ST elevation (NSTEMI) myocardial infarction; D68.8 Other specified coagulation defects; E87.8 Other disorders of electrolyte and fluid balance, not elsewhere classified; E11.22 Type 2 diabetes mellitus with diabetic chronic kidney disease; N18.3 Chronic kidney disease, stage 3 (moderate); D62 Acute posthemorrhagic anemia; I97.611 Postprocedural hemorrhage of a circulatory system organ or structure following cardiac bypass; I13.0 Hypertensive heart and chronic kidney disease with heart failure and stage 1 through stage 4 chronic kidney disease, or unspecified chronic kidney disease; I50.9 Heart failure, unspecified; D53.9 Nutritional anemia, unspecified; D75.89 Other specified diseases of blood and blood-forming organs; E78.5 Hyperlipidemia, unspecified; N28.9 Disorder of kidney and ureter, unspecified; D63.1 Anemia in chronic kidney disease; I25.119 Atherosclerotic heart disease of native coronary artery with unspecified angina pectoris
CPT/HCPCS: 36415; 36416; 36430; 71045; 76942; 80048; 80053; 80061; 80069; 82553; 82565; 82805; 83690; 83735; 83880; 84484; 85014; 85018; 85025; 85049; 85384; 85610; 85730; 86850; 86900; 86901; 93005; 93010; 93306; 93458; 93798; 93880; 94002; 94003; 94150; 96360; 96372; 99152; 99153; A4216; C1769; J0360; J0690; J1642; J1644; J1650; J1815; J1940; J2001; J2250; J2270; J2405; J2440; J2704; J2720; J3010; J3370; J3475; J3480; J7050; P9016; P9035; P9045; P9059; S0017; S0028

== ENCOUNTER 2017-08-12 16:03 | Inpatient (IN) | payer SELFPAY ==
[2017-08-12 16:32] LABS: Hemoglobin 11.5 g/dL (14.0-18.0); Mean Corpuscular HGB CONC 33.3 g/dL (32.0-36.0); Mean Corpuscular Hemoglobin 30.4 pg (27.0-31.0); Mean Corpuscular Volume 91.1 fl (80.0-94.0); Mean Platelet Volume 7.6 fL (7.4-10.4); Platelet Count 279 thou/uL (130-400); RBC Distribution Width 15.4 % (11.5-14.5); Red Blood Cell (RBC) Count 3.78 mill/uL (4.70-6.10); White Blood Cell (WBC) Count 17.5 thou/uL (4.8-10.8)
--- NOTE | 2017-08-12 16:35 | RAD ---
PA AND LATERAL VIEW OF THE CHEST: 08/12/17 HISTORY: Nausea and vomiting. FINDINGS: Comparison made to exam of 06/09/17. Changes of median sternotomy and aortic valve replacement are again seen. The heart size is normal. T he aorta is tortuous. No focal areas of consolidation, pneumothorax or pleural effusions are seen. Th ere is evidence of old granulomatous disease. No acute osseous abnormalities are identified. IMPRESSION: No radiographic evidence of acute cardiopulmonary process. POS: OFF
[2017-08-12 16:53] LABS: ALT (SGPT) 19 U/L (8-55); AST (SGOT) 25 U/L (5-34); Albumin 4.1 g/dL (3.4-4.8); Alkaline Phosphatase 113 U/L (40-150); Anisocytosis SLIGHT = 6-15 cells (100X) (0-5/hpf); BUN (Urea Nitrogen) 112 mg/dL (8.4-25.7); Band 10 % (5-11); Bilirubin, Total 0.5 mg/dL (0.2-1.2); CK (CPK) 167 U/L (30-200); Calc. Creatinine Clearance 0 mL/min (70-130); Chloride 95 mmol/L (98-107); Estimated GFR-MDRD 23; Globulin 3.2 g/dL (2.4-3.5); Glucose 153 mg/dL (83-110); Lipase 126 U/L (8-78); Lymphocytes 2 % (21-51); MDiff Complete? YES; Metamyelocyte 1 % (0-0); Monocytes 7 % (0-10); Neutrophil 80 % (42-75); Ovalocytes SLIGHT = 2-5 cells (100X) (0-1/hpf); PLT Morphology Comment Appears Adequate; Polychromasia SLIGHT = 2-3 cells (100X) (0-2/hpf); Potassium 5.2 mmol/L (3.5-5.1); Protein, Total 7.3 g/dL (5.8-8.1); Sodium 130 mmol/L (136-145)
[2017-08-12 17:03] LABS: CKMB 8.2 ng/mL (0-6.6); Carbon Dioxide Less than 8 mmol/L (23-31)
--- NOTE | 2017-08-12 18:06 | CT ---
NONCONTRAST CT ABDOMEN AND PELVIS: 08/12/17 HISTORY: Nausea and vomiting that started one day ago. Patient states he has been sick with cough for several days and currently on antibiotics and steroids. Patient complains of dark emesis. Patient does report melena. COMPARISON: None available. FINDINGS: There is partial visualization of an aortic valve with median sternotomy wires present. Some of these wires do extend into the epigastric region of the abdomen. Vascular calcifications seen in the coron esequiel arteries as well as involving the abdominal aorta and iliac arteries. There is significant motion artifact on the provided images which limits detail of the parenchymal or darinel. There is suggestion of hypodense lesions in the right kidney which cannot be further characteri zed on this exam. Renal sonogram is recommended for further evaluation, especially of the right kidne y. There is minimal linear atelectasis versus scar at the lateral left lung base. The lung bases are oth erwise clear. There is minimal linear atelectasis versus scarring at the lateral left lung base. Lung bases are otherwise clear. A 1.7 cm hypodense lesion is seen within the medial aspect of the right hepatic lobe near the caudate lobe and just superior to this location adjacent to the IVC is a 2 cm hypodense lesion which cannot be accurately characterized on this exam. The spleen is small in size but demonstrates a grossly normal nonenhanced CT appearance. The pancreas, bilateral adrenal glands, and urinary bladder demonstrate a grossly normal nonenhanced CT appearance. There is colonic diverticulosis without findings to suggest diverticulitis. The appendix is visualized and normal in caliber. No renal or ureteral calculi are seen bilaterally, and there is no hydronephrosis. The stomach is distended with fluid and particulate matter which may be related to recent ingestion o f a meal. Distal loops of small bowel in region of the ileum are slightly dilated although do measure less than 3 cm. There are loops of bowel proximal and distal to this region which are more normal in caliber a nd this could be related to peristalsis in this region, although there is questionable bowel wall th ickening. Enteritis cannot be entirely excluded, but there is no adjacent inflammatory changes seen. Degenerative changes are present in the spine. IMPRESSION: 1. Limited examination due to motion artifact. 2. Cardiomegaly with evidence of aortic valve replacement. There are midline sternotomy wires wi th wires extending into the epigastric region upper abdomen. 3. Distention of the stomach with fluid and particulate matter which may be related to recent in gestion of a meal. Also, there is mild dilatation of a loop of ileum with questionable thickening of the bowel in this region. Loops of bowel proximal and distal to this region are normal in caliber. In addition, there is mild stranding adjacent to the third portion of the duodenum. Enteritis could not be entirely excluded. 4. Right renal hypodense lesions which cannot be characterized due to significant patient motion . As a result, a nonemergent renal sonogram is recommended for further evaluation of these renal lesi ons. 5. Hypodense right hepatic lobe lesions which also cannot be characterized on this exam. Nonemer gent ultrasound examination may also be useful to further characterize these lesions. POS: BUFFY
[2017-08-12 18:22] LABS: CO2 Tension 19.1 mmHg (35.0-45.0); O2 Tension (PaO2) 110.4 mmHg (80.0-100.0); pH, Arterial 7.22 (7.35-7.45)
[2017-08-12 18:23] LABS: Actual Bicarbonate (HCO3a) 7.6 mEq/L (22-26); Base Excess (BEa) -18.2 mEq/L (0 (+/-) 2.5); Calcium, Ionized 1.1 mmol/L (1.12-1.30); Hematocrit-ABG 35.8 % (42.0-52.0); Hemoglobin (Hb) 10.4 g/dL (14.0-18.0)
[2017-08-12 18:24] LABS: ALV-art Gradient 15.455 (0-20); Analyzer IN Cardio ER; Puncture Site RRA
[2017-08-12] MEDS ORDERED: Sodium Bicarb 50 MEQ/50 ML Abboject 8.4% SYRINGE ONE (18:27)
[2017-08-12 20:59] LABS: Anion Gap 32 mmol/L (10-20); BUN (Urea Nitrogen) 108 mg/dL (8.4-25.7); Calc. Creatinine Clearance 0 mL/min (70-130); Calcium 8.2 mg/dL (7.8-10.44); Chloride 98 mmol/L (98-107); Estimated GFR-MDRD 25; Glucose 112 mg/dL (83-110); Potassium 5.6 mmol/L (3.5-5.1); Sodium 132 mmol/L (136-145)
[2017-08-12] MEDS ORDERED: Ondansetron HCl/PF 4 MG/2 ML Vial IVP PRN (21:00)
[2017-08-12] MEDS ORDERED: Sodium Chloride 0.9% 1,000 ML IV SCH (21:00)
[2017-08-12] MEDS ORDERED: Ondansetron ODT 4 MG TAB SL PRN (21:00)
[2017-08-12 21:16] LABS: Carbon Dioxide 8 mmol/L (23-31)
[2017-08-12 21:17] LABS: Lactic Acid 13.7 mmol/L (0.5-2.2)
[2017-08-12] MEDS ORDERED: Dextrose 5% in Water 1,000 ML IV PRN (21:24)
[2017-08-12] MEDS ORDERED: Dextrose 50% Abboject 50 ML SYRINGE SLOW IVP PRN (21:24)
[2017-08-12] MEDS ORDERED: Sodium Bicarb 50 MEQ/50 ML Abboject 8.4% SYRINGE IVP SCH (21:30)
[2017-08-12] MEDS ORDERED: Dextrose 50% Abboject 50 ML SYRINGE SLOW IVP SCH (21:30)
[2017-08-12] MEDS ORDERED: Insulin Regular 300 UNITS/3 ML VIAL IVP SCH (21:30)
[2017-08-13 03:10] LABS: Lactic Acid 13.1 mmol/L (0.5-2.2)
[2017-08-13 03:11] LABS: Anion Gap 28 mmol/L (10-20); BUN (Urea Nitrogen) 113 mg/dL (8.4-25.7); Calc. Creatinine Clearance 0 mL/min (70-130); Calcium 8.5 mg/dL (7.8-10.44); Carbon Dioxide 14 mmol/L (23-31); Chloride 98 mmol/L (98-107); Estimated GFR-MDRD 25; Glucose 127 mg/dL (83-110); Potassium 5.2 mmol/L (3.5-5.1); Sodium 135 mmol/L (136-145)
[2017-08-13 03:17] LABS: CKMB 7.8 ng/mL (0-6.6); Critical Call CKMBM RESULT DECREASING
[2017-08-13 04:48] VITALS: BMI 21.6
[2017-08-13] MEDS ORDERED: Labetalol HCl 100 MG/20 ML VIAL SLOW IVP PRN (06:21)
[2017-08-13] MEDS ORDERED: Calcium Carbonate 500 MG ChewTAB PO PRN (06:28)
[2017-08-13] MEDS ORDERED: Nitroglycerin 0.4 MG TAB (25 Tab Bottle) PO PRN (06:28)
[2017-08-13] MEDS ORDERED: Ondansetron HCl/PF 4 MG/2 ML Vial IVP PRN (06:28)
[2017-08-13] MEDS ORDERED: Acetaminophen 325 MG TAB PO PRN (06:28)
[2017-08-13] MEDS ORDERED: Ondansetron ODT 4 MG TAB PO PRN (06:28)
[2017-08-13] MEDS ORDERED: cloNIDine 0.1 MG TAB PO PRN (06:31)
--- NOTE | 2017-08-13 06:54 | HP ---
DATE OF ADMISSION: 08/12/2017 The patient was seen and examined on 08/12/2017 PRIMARY CARE PHYSICIAN: [facility] [place]. CHIEF COMPLAINT: Nausea, vomiting. HISTORY OF PRESENT ILLNESS: The patient is a 77-year-old male with diabetes mellitus, type 2; hypertension; coronary artery disease, status post CABG 2 months ago; presented to the emergency r oom with nausea and vomiting. History obtained with the help of a panel wirer. Over the last week or so, the patient has been having upper respiratory tract symptoms. He was start ed on antibiotic and steroids. Over the last 1-2 days, the patient has on and off abdominal pain robi nly localized around the periumbilical area, more or less constant, without any aggravating or reliev ing factor. He started developing nausea with approximately 5 episodes of vomiting over the last 24 hours. He has been constipated and had a bowel movement in the last 24 hours that was dark. He has also lost appetite. He feels generally weak and tired. He denies any association of the abdominal p ain with his food. No fever or chills reported. He is compliant with all of his medications. PAST MEDICAL HISTORY: 1. Critical aortic stenosis and symptomatic coronary artery disease, status post coronary artery byp ass grafting and aortic valve replacement 2 months ago. 2. Diabetes mellitus, type 2. 3. Hypertension. 4. Hyperlipidemia. 5. Chronic anemia. PAST SURGICAL HISTORY: As discussed above. ALLERGIES: No known drug allergies. CURRENT HOME MEDICATIONS: Albuterol inhaler as needed, aspirin 81 mg daily, Lipitor 20 mg at bedtime , Keflex 500 mg every 8 hourly, clonidine 0.1 mg 3 times a day, Reinbeck as needed, losartan 50 mg daily , Procardia-XL 90 mg daily, prednisone 20 mg daily that was started last week. SOCIAL HISTORY: The patient currently lives at home. No smoking, alcohol or drug use. He is origin ally from [place]. FAMILY HISTORY: Diabetes and hypertension in several family members. REVIEW OF SYSTEMS: The following complete review of systems was negative, unless otherwise mentioned in the HPI or below: Constitutional: Weight loss or gain, ability to conduct usual activities. Skin: Rash, itching. Eyes: Double vision, pain. ENT/Mouth: Nose bleeding, neck stiffness, pain, tenderness. Cardiovascular: Palpitations, dyspnea on exertion, orthopnea. Respiratory: Shortness of breath, wheezing, cough, hemoptysis, fever or night sweats. Gastrointestinal: Poor appetite, abdominal pain, heartburn, nausea, vomiting, constipation, or diarr hea. Genitourinary: Urgency, frequency, dysuria, nocturia. Musculoskeletal: Pain, swelling. Neurologic/Psychiatric: Anxiety, depression. Allergy/Immunologic: Skin rash, bleeding tendency. PHYSICAL EXAMINATION: VITAL SIGNS: Temperature 98.7, respirations 20, pulse rate of 84, blood pressure of 148/59 with O2 s aturation 95% on room air. GENERAL: A 77-year-old male, ill-appearing, in no significant distress. HEENT: Head is atraumatic, normocephalic, sclerae are anicteric. Dry mucous membranes. No oral les ion. NECK: Supple, no JVD appreciated. No carotid bruit. LUNGS: Showed diminished air entry at bilateral bases with scattered rales. No rhonchi or wheezing. HEART: S1, S2 present. Healed midline scar from previous CABG. A 3/6 systolic murmur over the mitr al area. No heaves or pulsation. ABDOMEN: Soft, mild generalized tenderness. Bowel sounds were hyperactive. Rectal examination per ER report was negative for gross blood. There was no rigidity or guarding. EXTREMITIES: No edema or calf tenderness. NEUROLOGIC: Grossly nonfocal, moves all four extremities. PSYCHIATRY: Alert, awake, oriented x3. SKIN: Warm and dry. LYMPH NODES: No palpable lymph nodes in the neck. PERIPHERAL VASCULAR: Radial pulses palpable bilaterally. MUSCULOSKELETAL: No joint swelling or tenderness. LABORATORY AND X-RAY FINDINGS: 1. EKG by my review showed sinus rhythm with left ventricular hypertrophy, left axis deviation witho ut significant ST-T wave changes. 2. Lactic acid was 15.3 with bicarbonate of 7.6. 3. ABG showed pH 7.22 with pCO2 of 19.1. 4. CBC showed WBC 17.5 with hemoglobin 11.5, platelet of 279. 5. Creatinine was 2.73 with BUN 112. His creatinine at discharge was 1.52. His baseline creatinine is 1.11 with estimated GFR of 64, CK-MB of 8.2 with troponin of 0.030, potassium maximum was 5.6 wit h sodium 132. 6. Chest x-ray by my review was negative for infiltrate or edema. 7. CT scan of the abdomen and pelvis without contrast showed mild stranding adjacent to the third po rtion of the duodenum, enteritis could not be excluded. IMPRESSION: 1. Sepsis with acute organ dysfunction. 2. Nausea and vomiting, probably secondary to ischemic colitis versus infectious gastroenteritis. 3. Acute kidney injury on chronic kidney disease, stage 2. 4. Anion gap metabolic acidosis secondary to lactic acidosis. 5. Hyperkalemia secondary to acidosis. 6. Hyponatremia. 7. Dehydration. 8. Chronic anemia. 9. Recent coronary artery bypass grafting with aortic valve replacement. 10. Diabetes mellitus, type 2. 11. Hypertension. 12. Hyperlipidemia. PLAN: The patient will be monitored in the intermediate care unit. We will continue bicarbonate dri p. We will consult Nephrology and GI. We will monitor labs every 6 to 8 hours. We will repeat lact ic acid. Insulin sliding scale. We will hold losartan. Empiric antibiotics. He received insulin D 50 for hyperkalemia. Close monitoring. His last blood pressure was 103/45. We will hold antihypert ensives for now. We will discontinue Keflex and prednisone, which was started by his primary care ph ysician. P.r.n. antihypertensives will be added. Plan of care was discussed with the patient with the help of a panel wirer. He stated understanding.
[2017-08-13] MEDS: Sodium Bicarbonate 150 MEQ in Dextrose 5% in Water 1,000 ML IV SCH ×8 (07:48→21:09)
[2017-08-13] MEDS ORDERED: MEROPENEM 1 GM/50 ML 1 GM in Premix Bag 1 BAG IVPB SCH (08:00)
[2017-08-13] MEDS ORDERED: Aspirin 81 mg Enteric Coated Tablet PO SCH (09:00)
[2017-08-13] MEDS ORDERED: Pantoprazole 40 MG VIAL IVP SCH (09:00)
[2017-08-13 09:27] LABS: Lactic Acid 8.6 mmol/L (0.5-2.2)
[2017-08-13] MEDS ORDERED: PROVENTIL INHALER 6.7 G (200 INHALATIONS) INH PRN (09:27)
[2017-08-13] MEDS ORDERED: Sodium Chloride 0.65% Nasal 44 ML BOT EA NARE PRN (09:28)
[2017-08-13] MEDS ORDERED: Milk Of Magnesia 30 ML UDCUP PO PRN (09:28)
[2017-08-13] MEDS ORDERED: Chloraseptic Spray 180 ml Bottle PO PRN (09:28)
[2017-08-13] MEDS ORDERED: Eucerin (Mineral Oil/Petrolatum,White) 30 gm Jar TOP PRN (09:28)
[2017-08-13] MEDS ORDERED: Zolpidem Tartrate 5 MG TAB PO PRN (09:28)
[2017-08-13] MEDS ORDERED: HYDROcodone/Acetaminophen 5/325 mg Tablet PO PRN (09:28)
[2017-08-13] MEDS ORDERED: Loratadine 10 MG TAB PO PRN (09:28)
[2017-08-13] MEDS ORDERED: Mag-Al 1200 mg/1200 mg/30 ML UDCUP PO PRN (09:28)
[2017-08-13] MEDS ORDERED: Artificial Tears 18 DROP/0.9 ML EA EYE PRN (09:28)
[2017-08-13] MEDS ORDERED: Senokot 8.6 MG TAB PO PRN (09:28)
[2017-08-13 09:29] LABS: Anion Gap 24 mmol/L (10-20); BUN (Urea Nitrogen) 113 mg/dL (8.4-25.7); Calc. Creatinine Clearance 24 mL/min (70-130); Calcium 8.5 mg/dL (7.8-10.44); Carbon Dioxide 21 mmol/L (23-31); Chloride 96 mmol/L (98-107); Estimated GFR-MDRD 28; Glucose 113 mg/dL (83-110); Potassium 4.7 mmol/L (3.5-5.1); Sodium 136 mmol/L (136-145)
--- NOTE | 2017-08-13 09:31 | PDOC.PN ---
- Subjective Encounter Start Date: 08/13/17 Encounter Start Time: 06:30 -: old records requested/rev pt has right LQ abdominal pain, no nausea and vomiting, no fever, vitals stable , family present bedside Patient seen and examined. No overnight events - Objective Resuscitation Status: Resuscitation Status FULL:Full Resuscitation MAR Reviewed: Yes Vital Signs & Weight: Vital Signs (12 hours) Temp Pulse Resp BP Pulse Ox 08/13/17 08:00 97.8 F 88 18 18 L 08/13/17 07:20 97.8 F 88 18 116/51 L 96 08/13/17 03:24 97.5 F L 75 20 103/45 L 96 08/12/17 23:23 97.3 F L 87 20 121/47 L 100 Weight Weight 138 lb 4 oz I&O: 08/12/17 08/13/17 08/14/17 06:59 06:59 06:59 Intake Total 900 Output Total 300 Balance 600 Result Diagrams: 08/12/17 16:21 08/13/17 09:00 Additional Labs: Accuchecks 08/13/17 08/13/17 08:33 05:12 POC Glucose 116 H 122 H Radiology Reviewed by me: Yes (CT abdomen) EKG Reviewed by me: Yes (NSR) Phys Exam - Physical Examination Constitutional: NAD HEENT: PERRLA, moist MMs, sclera anicteric Neck: no JVD, supple Respiratory: no wheezing, no rales, no rhonchi Cardiovascular: RRR SM+, prosthetic heart sound+, surgical scar is normal Gastrointestinal: soft, no distention, positive bowel sounds mild RLQ discomfort on deep palpation Musculoskeletal: no edema, pulses present Neurological: non-focal, normal sensation, moves all 4 limbs Lymphatic: no nodes Psychiatric: normal affect, A&O x 3 Skin: no rash, normal turgor Dx/Plan (1) Ischemic colitis, enteritis, or enterocolitis Code(s): K55.9 - VASCULAR DISORDER OF INTESTINE, UNSPECIFIED Status: Acute Comment: on conservative treatment (2) Acute renal failure superimposed on stage 2 chronic kidney disease Code(s): N17.9 - ACUTE KIDNEY FAILURE, UNSPECIFIED; N18.2 - CHRONIC KIDNEY DISEASE, STAGE 2 (MILD) Status: Acute Comment: continue IVF (3) Dehydration Code(s): E86.0 - DEHYDRATION Status: Acute Comment: continue IVF (4) Hyperkalemia Code(s): E87.5 - HYPERKALEMIA Status: Acute Comment: hold losartan, due to metabolic acidosis, monitor (5) Hyponatremia Code(s): E87.1 - HYPO-OSMOLALITY AND HYPONATREMIA Status: Acute Comment: due to dehydration (6) Lactic acidosis Code(s): E87.2 - ACIDOSIS Status: Acute (7) Nausea & vomiting Code(s): R11.2 - NAUSEA WITH VOMITING, UNSPECIFIED Status: Acute (8) Sepsis with acute organ dysfunction Code(s): A41.9 - SEPSIS, UNSPECIFIED ORGANISM; R65.20 - SEVERE SEPSIS WITHOUT SEPTIC SHOCK Status: Acute (9) Anemia, normocytic normochromic Code(s): D64.9 - ANEMIA, UNSPECIFIED Status: Chronic (10) CAD (coronary artery disease) Code(s): I25.10 - ATHSCL HEART DISEASE OF [place] CORONARY ARTERY W/O ANG PCTRS Status: Chronic (11) Diabetes type 2, controlled Code(s): E11.9 - TYPE 2 DIABETES MELLITUS WITHOUT COMPLICATIONS Status: Chronic (12) Dyslipidemia Code(s): E78.5 - HYPERLIPIDEMIA, UNSPECIFIED Status: Chronic (13) Hypertension Code(s): I10 - ESSENTIAL (PRIMARY) HYPERTENSION Status: Chronic Qualifiers: Hypertension type: essential hypertension Qualified Code(s): I10 - Essential (primary) hypertension (14) H/O aortic valve replacement Code(s): Z95.2 - PRESENCE OF PROSTHETIC HEART VALVE Status: Chronic - Plan cont current plan of care, plan discussed w/ family, continue antibiotics * continue empiric meropenam * continue IVF * GI consulted * will consider to start clear liquid as tolerated * medication reviewed as below * symptomatic treatment * discussed with family * Dr Villar consulted * will monitor. * repeat labs tomorrow * transfer to tele * hold BP meds for now Review of Systems - Review of Systems Constitutional: negative: fever, chills, sweats, weakness, malaise, other ENT: negative: Ear Pain, Ear Discharge, Nose Pain, Nose Discharge, Nose Congestion, Mouth Pain, Mouth Swelling, Throat Pain, Throat Swelling, Other Respiratory: negative: Cough, Dry, Shortness of Breath, Hemoptysis, SOB with Excertion, Pleuritic Pain, Sputum, Wheezing Cardiovascular: negative: chest pain, palpitations, orthopnea, paroxysmal nocturnal dyspnea, edema, light headedness, other Gastrointestinal: Abdominal Pain. negative: Nausea, Vomiting, Diarrhea, Constipation, Melena, Hematochezia, Other Genitourinary: negative: Dysuria, Frequency, Incontinence, Hematuria, Retention , Other Musculoskeletal: negative: Neck Pain, Shoulder Pain, Arm Pain, Back Pain, Hand Pain, Leg Pain, Foot Pain, Other Skin: negative: Rash, Lesions, Oliver, Bruising, Other - Medications/Allergies Allergies/Adverse Reactions: Allergies Allergy/AdvReac Type Severity Reaction Status Date / Time No Known Allergies Allergy Verified 08/13/17 04:43 Medications: Current Medications Acetaminophen (Tylenol) 650 mg PO Q4H PRN PRN Reason: Headache/Fever or Pain Hydrocodone Bitart/Acetaminophen ([place] 5/325) 1 tab PO Q4H PRN PRN Reason: Moderate Pain (4-6) Al Hydroxide/Mg Hydroxide (Maalox) 15 ml PO Q4H PRN PRN Reason: Heartburn or Indigestion Albuterol Sulfate (Proventil Hfa) 1 puff INH Q4HR PRN PRN Reason: SOB &/or Wheezing Artificial Tears (Tears Naturale) 0 drop EA EYE PRN PRN PRN Reason: Dry Eyes Aspirin (Ecotrin) 81 mg PO DAILY [facility] Last Admin: 08/13/17 07:48 Dose: Not Given Aspirin (Ecotrin) 81 mg PO DAILY [facility] Atorvastatin Calcium (Lipitor) 20 mg PO HS [facility] Calcium Carbonate (Tums) 1,000 mg PO Q4H PRN PRN Reason: Heartburn or Indigestion Clonidine (Catapres) 0.1 mg PO Q4H PRN PRN Reason: Systolic BP > 180 Dextrose/Water (Dextrose 50%) 25 gm SLOW IVP ONE [facility] Stop: 09/11/17 21:31 Last Admin: 08/12/17 21:44 Dose: 25 gm Dextrose/Water (Dextrose 50%) 25 gm SLOW IVP PRN PRN PRN Reason: Hypoglycemia Glucagon (Glucagon) 1 mg IM PRN PRN PRN Reason: Hypoglycemia Guaifenesin (Robitussin Sf) 200 mg PO Q4H PRN PRN Reason: Cough Sodium Bicarbonate 150 meq/ (Dextrose/Water) 1,150 mls @ 150 mls/hr IV .Q7H40M [facility] Last Admin: 08/13/17 07:48 Dose: 1,150 mls Dextrose/Water (D5w) 1,000 mls @ 0 mls/hr IV .Q0M PRN; As Directed PRN Reason: Hypoglycemia Meropenem 1 gm/ Device 50 mls @ 100 mls/hr IVPB 0800 [facility] Last Admin: 08/13/17 07:48 Dose: 50 mls Insulin Human Regular (Humulin R) 0 units SC .MILD SLIDING SCALE PRN PRN Reason: Mild Correctional Scale Labetalol HCl (Normodyne) 10 mg SLOW IVP Q4H PRN PRN Reason: Systolic BP > 180 Loratadine (Claritin) 10 mg PO DAILYPRN PRN PRN Reason: Sinus Symptoms Magnesium Hydroxide (Milk Of Magnesium) 30 ml PO DAILYPRN PRN PRN Reason: Constipation Mineral Oil/White Petrolatum (Eucerin Cream) 0 gm TOP BIDPRN PRN PRN Reason: Dry Skin Nitroglycerin (Nitrostat) 0.4 mg PO Q5MIN PRN PRN Reason: Chest Pain Ondansetron HCl (Zofran Odt) 4 mg PO Q6H PRN PRN Reason: Nausea/Vomiting Ondansetron HCl (Zofran) 4 mg IVP Q6H PRN PRN Reason: Nausea/Vomiting Pantoprazole Sodium (Protonix) 40 mg IVP DAILY [facility] Last Admin: 08/13/17 07:48 Dose: 40 mg Phenol (Chloraseptic [place] 180 Ml Bot) 0 ml PO PRN PRN PRN Reason: Sore Throat Senna (Senokot) 2 tab PO HSPRN PRN PRN Reason: Constipation Sodium Chloride (Flush - Normal Saline) 10 ml IVF Q12HR [facility] Last Admin: 08/13/17 07:49 Dose: 10 ml Sodium Chloride (Flush - Normal Saline) 10 ml IVF PRN PRN PRN Reason: Saline Flush Sodium Chloride ([place] Nasal [place] 0.65%) 0 ml EA NARE QIDPRN PRN PRN Reason: Nasal Congestion Zolpidem Tartrate (Ambien) 5 mg PO HSPRN PRN PRN Reason: Insomnia
--- NOTE | 2017-08-13 12:44 | ULT ---
BILATERAL RENAL SONOGRAM: Date: 08/13/17 HISTORY: Renal failure. FINDINGS: Right kidney is 8.8 cm in length and contains a cyst measuring up to 1.5 cm. No hydronephrosis. Urina ry bladder is unremarkable. Left kidney is 9.6 cm without focal mass, stone, or hydronephrosis. IMPRESSION: No evidence of urinary tract obstruction. POS: JO-ANN
[2017-08-13 13:16] LABS: Bilirubin Negative (Negative); Blood, Urine Negative (Negative); Clarity CLEAR (Clear); Glucose, Urine (Dipstick) Negative (Negative); Leukocyte Negative (Negative); Nitrite Negative (Negative); Protein, Urine (Dipstick) Negative (Neg-Trace); Specific Gravity, Urine 1.015 (1.002-1.036); Urobilinogen 0.2 mg/dL (0.2-1.0); pH, Urine 5.5 (5.0-9.0)
[2017-08-13 13:19] LABS: Bacteria/HPF None Seen HPF (None Seen); Hyaline Casts/LPF 0-3 HYALINE CAST LPF (0-3 Hyaline); Pathc Cast-AUWi Flag 0.29 (0-2.49); RBC/HPF 0-3 HPF (0-3); Squamous Epithelial None Seen HPF (0-3); WBC/HPF None Seen HPF (0-3)
[2017-08-13 13:25] LABS: Creatinine, Urine 28.56 mg/dL (63-166)
[2017-08-13 15:42] LABS: Anion Gap 20 mmol/L (10-20); BUN (Urea Nitrogen) 106 mg/dL (8.4-25.7); Calc. Creatinine Clearance 26 mL/min (70-130); Calcium 8.1 mg/dL (7.8-10.44); Carbon Dioxide 25 mmol/L (23-31); Chloride 94 mmol/L (98-107); Estimated GFR-MDRD 31; Glucose 219 mg/dL (83-110); Potassium 4.4 mmol/L (3.5-5.1); Sodium 135 mmol/L (136-145)
--- NOTE | 2017-08-13 16:55 | CON ---
DATE OF CONSULTATION: 08/13/2017 HISTORY OF PRESENT ILLNESS: Mr. Farrell is a 77-year-old male who was initially admitted fo r generalized malaise and weakness. He was admitted with sepsis syndrome. We are being consulted fo r his acute kidney injury on top of his chronic renal failure. He was also noted to be hyperkalemic and hyponatremic. This was corrected. REVIEW OF SYSTEMS: Positive for generalized malaise, positive for nausea, positive for decreased nathalie etite, decreased energy level. Denies any overt fever or chills. No gross hematuria, no dysuria, no urinary frequency, no syncopal episode, no ? of abdominal pain, no headache, no diplopia, no sore th roat. MEDICATIONS: Currently on [place] 5/325 q.4 hours to q.6 hours, Ecotrin 81 mg daily, Lipitor 20 mg tab at bedtime, currently on isotonic bicarbonate at 150 mL an hour. PAST MEDICAL HISTORY: Includes the following; 1. Aortic valve disease. 2. Coronary artery disease. 3. Type 2 diabetes mellitus. 4. Hypertension. 5. Hyperlipidemia. 6. Chronic anemia. PAST SURGICAL HISTORY: Status post cardiac cath, status post CABG and status post aortic valve repla cement. ALLERGIES: None. TRAUMA: None. IMMUNIZATIONS: Up to date. HOSPITALIZATIONS: Please see past medical history. FAMILY HISTORY: No family history of ESRD. SOCIAL HISTORY: The patient lives in [facility], but he is simply visiting and is a [place] of [place]. Kiersten lang is , 8 children. No history of smoking, no alcohol intake, no IV drug abuse. 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 The patient has no formal schooling. FAMILY HISTORY: No family history or history of ESRD. PHYSICAL EXAMINATION: VITAL SIGNS: Blood pressure 116/51, heart rate 88, respiratory rate 18, temperature 97.8 and pulse o x 96%. GENERAL: Noted to be awake, supine, comfortable and lethargic, not in overt distress. SKIN: Adequate turgor. HEENT: He has pinkish conjunctivae, anicteric sclerae. NECK: No neck mass, no carotid bruits, no JVD. CHEST: No deformities. LUNGS: Clear breath sounds. HEART: Normal sinus rhythm. No murmur, no gallops, no rubs. ABDOMEN: Globular, soft and nontender. No masses. EXTREMITIES: Trace edema. NEUROLOGICAL: Awake and oriented to 3 spheres. Moving all extremities. No tremors, no asterixis, n o ataxia. LABORATORY AND IMAGING DATA: Laboratories of 08/13/2017; sodium 136, potassium 4.7, chloride 96, car bon dioxide 21, BUN 113, creatinine 2.29 and glucose 113. Lactic acid 8.6, calcium 8.5 and troponin I 0.030. Further review of his serum creatinine shows the following. On 08/13/2017, creatinine in 2 .54. Urinalysis is pending. CT scan of the abdomen and pelvis showed incidental finding of hypodense lesions, which could not be characterized. Findings of hypodense lesions in the right kidney could not be characterized. Recomm endation is a renal ultrasound. Chest x-ray, no CHF. Beta-hydroxybutyrate 0.51. ASSESSMENT AND PLAN: 1. Acute kidney injury - consider hemodynamically mediated renal dysfunction on top of his chronic r enal failure. Urinalysis has been ordered to rule out urinary tract infection with this patient. Pl ease note that this patient has underlying history of diabetes mellitus. If he has proteinuria, he m ay have diabetic nephropathy. 2. Incidental finding of a hypodense lesion in the right kidney - a repeat renal ultrasound has been done. 3. Metabolic acidosis, currently on isotonic bicarbonate. 4. ? of sepsis syndrome - this is an unclear diagnosis. However, cultures have been done. In addition, a urinalysis has been ordered. For the moment, agree with current management. There is no indication for any dialytic intervention. Please note there is a slight improvement in renal function with IV hydration. Agree with current management.
[2017-08-13] MEDS: Atorvastatin Calcium 20 MG TAB PO SCH (20:15)
[2017-08-13] MEDS: Insulin Regular 300 UNITS/3 ML VIAL SC PRN (20:54)
--- NOTE | 2017-08-13 20:56 | CON ---
DATE OF CONSULTATION: 08/13/2017 CHIEF COMPLAINT: Nausea and vomiting. HISTORY OF PRESENT ILLNESS: Mr. Farrell is a 77-year-old man, who was admitted yesterday with 24 lobo rs of nausea and vomiting. He had no reported chronic symptoms prior to that. He has had some periu mbilical aching abdominal pain as well. His nausea is better today. He has had no further vomiting since he has been on in the IMCU. He has had no chest pain or shortness of breath. No diarrhea, con stipation or blood in the stool or black stools. He had a CT scan when he came in that showed some t hickening in the small bowel and of the ileum and some stranding around the third portion of the duod enum. The stomach was distended. He was severely dehydrated on presentation. He was admitted and g iven IV fluids and antibiotics is clinically doing better today. PAST MEDICAL HISTORY: Coronary artery disease and aortic valve stenosis. He underwent bioprosthetic aortic valve and 3-vessel coronary bypass on 06/07/2017. He has diabetes mellitus, hypertension, hy perlipidemia. PAST SURGICAL HISTORY: Valve replacement and coronary artery bypass as stated above. FAMILY HISTORY: Negative for GI malignancies. SOCIAL HISTORY: No alcohol, tobacco or drugs. His Polish is limited. ALLERGIES: No known drug allergies. MEDICATIONS: Currently include aspirin, atorvastatin, pantoprazole. Prior to admission, he was also currently on prednisone, clonidine, losartan, nifedipine, aspirin, atorvastatin, and reason for the prednisone is not clear to me. REVIEW OF SYSTEMS: Negative x10 systems reviewed except as stated in history of present illness. PHYSICAL EXAMINATION: VITAL SIGNS: Temperature 98.4, pulse 106, and blood pressure 124/54. GENERAL: He is in no acute distress. He is awake and alert. HEENT: Eyes have no scleral icterus. Oropharynx is clear, without lesions. NECK: No cervical or supraclavicular lymphadenopathy. LUNGS: Clear to auscultation bilaterally. HEART: Regular rate and rhythm. ABDOMEN: Soft. He does report tenderness to palpation, but there is no guarding and his bowel sound s are active and the tenderness appears to be mild. EXTREMITIES: He has trace lower extremity edema. LABORATORY DATA: White blood cell count 17.5, hemoglobin was 11.5 with a baseline of 9.5. Again, he was obviously dehydrated on presentation. His platelets are 279 on presentation. Creatinine 2.29 w ith a baseline creatinine around 1.5. His BUN was 113 on presentation. He had lactic acidosis with a lactate of 15.3 down to 8.6 this morning. IMAGING: CT scan of the abdomen and pelvis yesterday evening showed a 1.7 cm hypodense lesion in the right hepatic lobe. This was a noncontrasted study. The stomach was distended and there were some possible inflammatory changes around the third portion of the duodenum and some thickening of the sma ll bowel in the ileum. IMPRESSION: 1. Acute episode of nausea and vomiting, and severe dehydration with lactic acidosis. May have had sepsis; however, the blood cultures are negative so far. He could have had an acute infectious gastr oenteritis given just an abrupt onset of nausea and vomiting as a presenting symptom. The nausea and vomiting could be secondary to prior if he had this mesenteric ischemia; however, he appears to be i mproving and his lactate is improving and his abdominal pain is very mild at this point. He certainl y does not appear to have infarcted bowel at this point. 2. Hypodense lesion in the liver. RECOMMENDATIONS: 1. IV fluids and rehydration. Follow trend of the hemoglobin after hydration and continue to follow the renal function. 2. Antiemetics as necessary. 3. Proton pump inhibitor. 4. Check alpha fetoprotein. 5. At this point, treatment is just symptomatic supportive care. Given the abrupt onset of nausea a nd vomiting, possible infectious gastroenteritis versus transient ischemic process from dehydration.
[2017-08-14] MEDS: Sodium Bicarbonate 150 MEQ in Dextrose 5% in Water 1,000 ML IV SCH ×2 (04:36)
[2017-08-14 05:22] LABS: #Lymphocytes 1.2 thou/uL (1.20-3.40); #Monocytes 0.9 thou/uL (0.11-0.59); #Neutrophils 6.7 thou/uL (1.40-6.50); %Basophils 0.4 % (0.0-1.0); %Eosinophils 0.4 % (0.0-10.0); %Lymphocytes 13.7 % (21.0-51.0); %Monocytes 10.1 % (0.0-10.0); %Neutrophils 75.4 % (42.0-75.0); Hemoglobin 10.7 g/dL (14.0-18.0); Mean Corpuscular HGB CONC 34.3 g/dL (32.0-36.0); Mean Corpuscular Hemoglobin 30.8 pg (27.0-31.0); Mean Corpuscular Volume 89.6 fl (80.0-94.0); Mean Platelet Volume 7.4 fL (7.4-10.4); Platelet Count 223 thou/uL (130-400); RBC Distribution Width 15.3 % (11.5-14.5); Red Blood Cell (RBC) Count 3.48 mill/uL (4.70-6.10); White Blood Cell (WBC) Count 8.9 thou/uL (4.8-10.8)
[2017-08-14 05:49] LABS: Anion Gap 15 mmol/L (10-20); Carbon Dioxide 36 mmol/L (23-31); Chloride 93 mmol/L (98-107); Potassium 3.5 mmol/L (3.5-5.1); Sodium 140 mmol/L (136-145)
[2017-08-14 05:50] LABS: ALT (SGPT) 19 U/L (8-55); AST (SGOT) 23 U/L (5-34); Alkaline Phosphatase 83 U/L (40-150); BUN (Urea Nitrogen) 70 mg/dL (8.4-25.7); Bilirubin, Total 0.8 mg/dL (0.2-1.2); Calc. Creatinine Clearance 36 mL/min (70-130); Calcium 8.1 mg/dL (7.8-10.44); Estimated GFR-MDRD 45; Globulin 2.2 g/dL (2.4-3.5); Glucose 98 mg/dL (83-110); Magnesium 2.6 mg/dL (1.6-2.6); Phosphorus 3.8 mg/dL (2.3-4.7); Protein, Total 5.2 g/dL (5.8-8.1)
--- NOTE | 2017-08-14 08:54 | PDOC.PN ---
- Subjective Encounter Start Date: 08/14/17 Encounter Start Time: 06:20 Patient seen and examined. No new complaints. No overnight events no abdominal pain, no nausea and vomiting - Objective Resuscitation Status: Resuscitation Status FULL:Full Resuscitation MAR Reviewed: Yes Vital Signs & Weight: Vital Signs (12 hours) Temp Pulse Resp BP Pulse Ox 08/14/17 08:10 98.7 F 91 18 162/80 H 95 08/14/17 06:41 94 L 08/14/17 03:59 97.6 F 83 16 139/65 95 08/14/17 00:50 97 08/14/17 00:00 97.6 F 88 17 142/69 H 97 Weight Weight 138 lb 4 oz I&O: 08/13/17 08/14/17 08/15/17 06:59 06:59 06:59 Intake Total 900 2050 Output Total 300 1800 650 Balance 600 250 -650 Result Diagrams: 08/14/17 04:19 08/14/17 04:19 Additional Labs: Accuchecks 08/14/17 08/14/17 08/14/17 08:12 04:15 00:16 POC Glucose 175 H 106 109 08/13/17 08/13/17 08/13/17 20:30 16:00 11:53 POC Glucose 249 H 235 H 182 H EKG Reviewed by me: Yes (nsr) Phys Exam - Physical Examination Constitutional: NAD HEENT: PERRLA, moist MMs, sclera anicteric Neck: no JVD, supple Respiratory: no wheezing, no rales, no rhonchi Cardiovascular: RRR, no significant murmur, no rub Gastrointestinal: soft, non-tender, no distention, positive bowel sounds Musculoskeletal: no edema, pulses present Neurological: non-focal, normal sensation Psychiatric: normal affect, A&O x 3 Skin: no rash, normal turgor Dx/Plan (1) Ischemic colitis, enteritis, or enterocolitis Code(s): K55.9 - VASCULAR DISORDER OF INTESTINE, UNSPECIFIED Status: Acute Comment: on conservative treatment (2) Acute renal failure superimposed on stage 2 chronic kidney disease Code(s): N17.9 - ACUTE KIDNEY FAILURE, UNSPECIFIED; N18.2 - CHRONIC KIDNEY DISEASE, STAGE 2 (MILD) Status: Acute Comment: improving (3) Dehydration Code(s): E86.0 - DEHYDRATION Status: Acute Comment: continue IVF (4) Hyperkalemia Code(s): E87.5 - HYPERKALEMIA Status: Resolved Comment: hold losartan, due to metabolic acidosis, monitor (5) Hyponatremia Code(s): E87.1 - HYPO-OSMOLALITY AND HYPONATREMIA Status: Acute Comment: due to dehydration (6) Lactic acidosis Code(s): E87.2 - ACIDOSIS Status: Acute (7) Nausea & vomiting Code(s): R11.2 - NAUSEA WITH VOMITING, UNSPECIFIED Status: Acute (8) Sepsis with acute organ dysfunction Code(s): A41.9 - SEPSIS, UNSPECIFIED ORGANISM; R65.20 - SEVERE SEPSIS WITHOUT SEPTIC SHOCK Status: Acute (9) Anemia, normocytic normochromic Code(s): D64.9 - ANEMIA, UNSPECIFIED Status: Chronic (10) CAD (coronary artery disease) Code(s): I25.10 - ATHSCL HEART DISEASE OF [place] CORONARY ARTERY W/O ANG PCTRS Status: Chronic (11) Diabetes type 2, controlled Code(s): E11.9 - TYPE 2 DIABETES MELLITUS WITHOUT COMPLICATIONS Status: Chronic (12) Dyslipidemia Code(s): E78.5 - HYPERLIPIDEMIA, UNSPECIFIED Status: Chronic (13) Hypertension Code(s): I10 - ESSENTIAL (PRIMARY) HYPERTENSION Status: Chronic Qualifiers: Hypertension type: essential hypertension Qualified Code(s): I10 - Essential (primary) hypertension - Plan cont current plan of care, plan discussed w/ family, continue antibiotics * start PT * DC bicarbonate drip * start NS at 50 ml per hour * continue empiric meropenam * repeat labs tomorrow * discussed with son * medication reviewed as below * symptomatic treatment. * check lactic acid * GI following * OK to transfer to medical floor * change protonix po * start procardia xl Review of Systems - Review of Systems Constitutional: negative: fever, chills, sweats, weakness, malaise, other Eyes: negative: Pain, Vision Change, Conjunctivae Inflammation, Eyelid Inflammation, Redness, Other ENT: negative: Ear Pain, Ear Discharge, Nose Pain, Nose Discharge, Nose Congestion, Mouth Pain, Mouth Swelling, Throat Pain, Throat Swelling, Other Respiratory: negative: Cough, Dry, Shortness of Breath, Hemoptysis, SOB with Excertion, Pleuritic Pain, Sputum, Wheezing Cardiovascular: negative: chest pain, palpitations, orthopnea, paroxysmal nocturnal dyspnea, edema, light headedness, other Gastrointestinal: negative: Nausea, Vomiting, Abdominal Pain, Diarrhea, Constipation, Melena, Hematochezia, Other Genitourinary: negative: Dysuria, Frequency, Incontinence, Hematuria, Retention , Other Musculoskeletal: negative: Neck Pain, Shoulder Pain, Arm Pain, Back Pain, Hand Pain, Leg Pain, Foot Pain, Other Skin: negative: Rash, Lesions, Oliver, Bruising, Other - Medications/Allergies Allergies/Adverse Reactions: Allergies Allergy/AdvReac Type Severity Reaction Status Date / Time No Known Allergies Allergy Verified 08/13/17 04:43 Medications: Current Medications Acetaminophen (Tylenol) 650 mg PO Q4H PRN PRN Reason: Headache/Fever or Pain Hydrocodone Bitart/Acetaminophen ([place] 5/325) 1 tab PO Q4H PRN PRN Reason: Moderate Pain (4-6) Al Hydroxide/Mg Hydroxide (Maalox) 15 ml PO Q4H PRN PRN Reason: Heartburn or Indigestion Albuterol Sulfate (Proventil Hfa) 1 puff INH Q4HR PRN PRN Reason: SOB &/or Wheezing Artificial Tears (Tears Naturale) 0 drop EA EYE PRN PRN PRN Reason: Dry Eyes Aspirin (Ecotrin) 81 mg PO DAILY [facility] Atorvastatin Calcium (Lipitor) 20 mg PO HS [facility] Last Admin: 08/13/17 20:15 Dose: 20 mg Calcium Carbonate (Tums) 1,000 mg PO Q4H PRN PRN Reason: Heartburn or Indigestion Clonidine (Catapres) 0.1 mg PO Q4H PRN PRN Reason: Systolic BP > 180 Dextrose/Water (Dextrose 50%) 25 gm SLOW IVP ONE [facility] Stop: 09/11/17 21:31 Last Admin: 08/12/17 21:44 Dose: 25 gm Dextrose/Water (Dextrose 50%) 25 gm SLOW IVP PRN PRN PRN Reason: Hypoglycemia Glucagon (Glucagon) 1 mg IM PRN PRN PRN Reason: Hypoglycemia Guaifenesin (Robitussin Sf) 200 mg PO Q4H PRN PRN Reason: Cough Dextrose/Water (D5w) 1,000 mls @ 0 mls/hr IV .Q0M PRN; As Directed PRN Reason: Hypoglycemia Meropenem 1 gm/ Sodium (Chloride) 100 mls @ 100 mls/hr IVPB 0800 [facility] Sodium Chloride (Normal Saline 0.9%) 1,000 mls @ 50 mls/hr IV .Q20H [facility] Insulin Human Regular (Humulin R) 0 units SC .MILD SLIDING SCALE PRN PRN Reason: Mild Correctional Scale Last Admin: 08/13/17 20:54 Dose: 3 unit Labetalol HCl (Normodyne) 10 mg SLOW IVP Q4H PRN PRN Reason: Systolic BP > 180 Loratadine (Claritin) 10 mg PO DAILYPRN PRN PRN Reason: Sinus Symptoms Magnesium Hydroxide (Milk Of Magnesium) 30 ml PO DAILYPRN PRN PRN Reason: Constipation Mineral Oil/White Petrolatum (Eucerin Cream) 0 gm TOP BIDPRN PRN PRN Reason: Dry Skin Nitroglycerin (Nitrostat) 0.4 mg PO Q5MIN PRN PRN Reason: Chest Pain Ondansetron HCl (Zofran Odt) 4 mg PO Q6H PRN PRN Reason: Nausea/Vomiting Ondansetron HCl (Zofran) 4 mg IVP Q6H PRN PRN Reason: Nausea/Vomiting Pantoprazole Sodium (Protonix) 40 mg IVP DAILY [facility] Last Admin: 08/13/17 07:48 Dose: 40 mg Phenol (Chloraseptic [place] 180 Ml Bot) 0 ml PO PRN PRN PRN Reason: Sore Throat Senna (Senokot) 2 tab PO HSPRN PRN PRN Reason: Constipation Sodium Chloride (Flush - Normal Saline) 10 ml IVF Q12HR [facility] Last Admin: 08/13/17 20:15 Dose: Not Given Sodium Chloride (Flush - Normal Saline) 10 ml IVF PRN PRN PRN Reason: Saline Flush Sodium Chloride ([place] Nasal [place] 0.65%) 0 ml EA NARE QIDPRN PRN PRN Reason: Nasal Congestion Zolpidem Tartrate (Ambien) 5 mg PO HSPRN PRN PRN Reason: Insomnia
[2017-08-14] MEDS ORDERED: cloNIDine 0.1 MG TAB PO PRN (08:58)
[2017-08-14] MEDS: NIFEdipine XL 90 MG TAB PO SCH (09:28)
[2017-08-14] MEDS: Aspirin 81 mg Enteric Coated Tablet PO SCH (09:29)
[2017-08-14] MEDS: Meropenem 1 GM in Sodium Chloride 0.9% 100 ML IVPB SCH (09:29)
[2017-08-14 09:36] LABS: Lactic Acid 3.6 mmol/L (0.5-2.2)
[2017-08-14] MEDS: Sodium Chloride 0.9% 1,000 ML IV SCH (09:38)
[2017-08-14] MEDS: Insulin Regular 300 UNITS/3 ML VIAL SC PRN ×2 (11:46→17:08)
--- NOTE | 2017-08-14 13:02 | PRG ---
DATE OF SERVICE: 08/14/2017 SUBJECTIVE: This morning, he is better, he is less short of breath. OBJECTIVE: VITAL SIGNS: Sats are 96% on room air, temperature 98, blood pressure 160/80, respiration rate 16. I's and O's are 2050 in, 180 out. CHEST: Chest reveals decreased breath sounds, no wheezing. CARDIAC: Normal S1, S2. No gallops. ABDOMEN: Soft, no masses. LABORATORY DATA: His creatinine is 1.5, BUN is 70. White count is 8000, hemoglobin and hematocrit i s 10 and 30, platelet count is normal. IMPRESSION: 1. Recent coronary artery bypass graft with aortic valve. 2. Renal failure. 3. Respiratory failure. 4. Obesity. 5. Diabetes. 6. Nausea and vomiting, improved. PLAN: Continue slow hydration. Probably transfer out of the MICU.
--- NOTE | 2017-08-14 13:06 | PRG ---
DATE OF SERVICE: 08/14/2017 SUBJECTIVE: Mr. Farrell is a 77-year-old male who was seen by the renal service for an acut e kidney injury. The feeling is that acute kidney injury is hemodynamically mediated renal dysfuncti on. He has been empirically volume repleted. He is off his diuretics. No other complaints today. He says he is feeling better. OBJECTIVE: VITAL SIGNS: Blood pressure 164/91, heart rate 91, respiratory rate 18, temperature 98.7, pulse ox 9 5%. GENERAL: Awake, supine, comfortable, not in overt distress. SKIN: Adequate turgor. HEENT: Pinkish conjunctivae, anicteric sclerae. NECK: No neck mass, no carotid bruits, no JVD. CHEST: No deformities. LUNGS: Clear breath sounds. HEART: Normal sinus rhythm. No murmur, no gallops, no rubs. ABDOMEN: Globular, soft, nontender, no masses. EXTREMITIES: No edema, no deformities. MEDICATIONS: Medications of 08/14/2017 was reviewed. LABORATORY DATA: Laboratories of 08/14/2017, white count 8.9, hemoglobin 10.7. Sodium 140, potassiu m 3.5, chloride 93, carbon dioxide 36, BUN 70, creatinine 1.51, phosphorus is 3.8, AST 23, ALT 19, al bumin 3.0. ASSESSMENT AND PLAN: 1. Acute kidney injury - hemodynamically mediated renal dysfunction on top of an underlying chronic r enal failure. Agree with current management, continue gentle volume repletion. Continue to hold off any diuretics or SONG inhibitors for the moment. 2. Renal hypodense lesion - repeat renal ultrasound, did not show any evidence of a focal mass or ob struction. Renal ultrasound was essentially within normal and there is no obstruction. Agree with current management.
--- NOTE | 2017-08-14 18:22 | PRG ---
DATE OF SERVICE: 08/14/2017 SUBJECTIVE: Mr. Farrell has had no nausea, vomiting or abdominal pain today. OBJECTIVE: VITAL SIGNS: Temperature 98.4, pulse 86, and blood pressure 134/63. GENERAL: He is in no acute distress, awake and alert. LUNGS: Clear to auscultation bilaterally. HEART: Regular rate and rhythm. ABDOMEN: Soft, nontender, nondistended. Bowel sounds are present. EXTREMITIES: No lower extremity edema. LABORATORY DATA: Creatinine is down to 1.51. White blood cell count is improved from 17 to 8.9 hemo globin is 10.7, platelets 223. IMPRESSION: Acute onset of nausea, vomiting, and abdominal pain. This could have been an infectious gastroenteritis. Given his recent heart surgery and presentation with lactic acidosis and acute rajesh al failure, it is possible that he had dehydration with relative mesenteric ischemia. There is no ev idence of infarction. At this point, the goal will be optimizing his fluid status and hydration. He appears clinically improved. RECOMMENDATIONS: 1. If he continues to improve, then he could potentially discharge home tomorrow from a GI standpoin t. 2. Advance to a heart healthy diet.
[2017-08-14] MEDS: Atorvastatin Calcium 20 MG TAB PO SCH (20:22)
[2017-08-15 04:53] LABS: #Eosinphils 0.2 thou/uL (0.0-0.7); #Lymphocytes 1.7 thou/uL (1.20-3.40); #Monocytes 0.7 thou/uL (0.11-0.59); #Neutrophils 6.2 thou/uL (1.40-6.50); %Basophils 0.1 % (0.0-1.0); %Eosinophils 2.1 % (0.0-10.0); %Lymphocytes 19.3 % (21.0-51.0); %Monocytes 8.5 % (0.0-10.0); %Neutrophils 70.1 % (42.0-75.0); Hemoglobin 10.6 g/dL (14.0-18.0); Mean Corpuscular HGB CONC 33.4 g/dL (32.0-36.0); Mean Corpuscular Hemoglobin 30.6 pg (27.0-31.0); Mean Corpuscular Volume 91.7 fl (80.0-94.0); Mean Platelet Volume 7.6 fL (7.4-10.4); Platelet Count 214 thou/uL (130-400); RBC Distribution Width 15.4 % (11.5-14.5); Red Blood Cell (RBC) Count 3.47 mill/uL (4.70-6.10); White Blood Cell (WBC) Count 8.8 thou/uL (4.8-10.8)
[2017-08-15 05:06] LABS: ALT (SGPT) 32 U/L (8-55); AST (SGOT) 42 U/L (5-34); Alkaline Phosphatase 115 U/L (40-150); Anion Gap 9 mmol/L (10-20); BUN (Urea Nitrogen) 35 mg/dL (8.4-25.7); Bilirubin, Total 0.9 mg/dL (0.2-1.2); Calc. Creatinine Clearance 46 mL/min (70-130); Calcium 8.2 mg/dL (7.8-10.44); Carbon Dioxide 34 mmol/L (23-31); Chloride 101 mmol/L (98-107); Estimated GFR-MDRD 59; Globulin 2.3 g/dL (2.4-3.5); Glucose 158 mg/dL (83-110); Potassium 4.2 mmol/L (3.5-5.1); Protein, Total 5.3 g/dL (5.8-8.1); Sodium 140 mmol/L (136-145)
[2017-08-15] MEDS: Sodium Chloride 0.9% 1,000 ML IV SCH (05:31)
[2017-08-15] MEDS: Insulin Regular 300 UNITS/3 ML VIAL SC PRN ×4 (05:56→20:24)
--- NOTE | 2017-08-15 08:32 | CON ---
DATE OF CONSULTATION: 08/13/2017 HISTORY OF PRESENT ILLNESS: Vinicius Farrell is a 77-year-old gentleman who speaks no E nglish, who was recently in the hospital in May. He was seen by Dr. Verde, apparently discharged home on 06/12/2017. His discharge diagnosis was stat us post critical aortic stenosis surgery, status post bypass, status post valve replacement, diabetes , hypertension, hyperlipidemia. His renal function was normal at that time. He now comes in with a several day history of nausea, vomiting, and apparently some abdominal discomf ort. His granddaughter who was translating states that as of this morning, he is feeling somewhat be tter. He has a cough. Denies any hematemesis or melena. CT of his abdomen and pelvis was done yesterday evening, which shows motion artifact. Distention of the stomach, concern about some enteritis. Otherwise, nothing additional was seen to speak of. MEDICATIONS: His list of medicines supposedly has included nifedipine 90, prednisone, Catapres 0.1, Cozaar 50, Keflex, atorvastatin, aspirin and albuterol. ALLERGIES: None. SOCIAL AND FAMILY HISTORY: From the previous documented note, reveals he is from [place] visiting [employer] members here. No history of any alcohol or tobacco abuse. REVIEW OF SYSTEMS: Ten-point negative. PHYSICAL EXAMINATION: GENERAL: Awake, alert and responsive, in no distress. VITAL SIGNS: Sats are 96% on room air, temperature is 98, pulse 88 and blood pressure 116/51. CHEST: With no wheezing or crackles. CARDIAC: Normal S1 and S2. ABDOMEN: Soft and nontender. EXTREMITIES: No edema. NEUROLOGIC: He is awake, alert and responsive. LABORATORY AND IMAGING DATA: Creatinine is 2.54, which was normal two months ago. His bicarbonate i s 14. Lactic acid 13, glucose 160, CK was 7.8 and troponin is slightly elevated. Chest x-ray was no rmal. White count 17,000, hemoglobin and hematocrit 11 and 34 and platelet count is 279,000. IMPRESSION: 1. Nausea and vomiting, etiology unclear, possibly some ileus, his abdomen is really soft. 2. Renal failure. All of it appears to be prerenal. 3. Normal liver function. 4. Recent aortic valve and coronary artery bypass grafting surgery. PLAN: 1. Continue hydration. 2. Try clear liquids on him. 3. He was started on empiric antibiotics. I doubt he has got any acute process. 4. Await input from GI and Nephrology. Pulmonary critical care will follow while he is in the MICU. This is a consultation note of 70 minutes of which 50% was spent in direct patient care.
[2017-08-15] MEDS: NIFEdipine XL 90 MG TAB PO SCH (08:59)
[2017-08-15] MEDS: Aspirin 81 mg Enteric Coated Tablet PO SCH (09:00)
[2017-08-15] MEDS: Meropenem 1 GM in Sodium Chloride 0.9% 100 ML IVPB SCH (09:00)
[2017-08-15] MEDS: Diabetic Tussin 200 MG/10 ML UDCUP PO PRN ×3 (09:07→17:51)
--- NOTE | 2017-08-15 09:08 | PDOC.PN ---
- Subjective Encounter Start Date: 08/15/17 Encounter Start Time: 07:20 Patient seen and examined. No new complaints. No overnight events - Objective Resuscitation Status: Resuscitation Status FULL:Full Resuscitation MAR Reviewed: Yes Vital Signs & Weight: Vital Signs (12 hours) Temp Pulse Resp BP BP Pulse Ox 08/15/17 08:59 85 147/84 H 08/15/17 08:00 87 20 147/84 H 95 08/15/17 07:20 98.2 F 80 16 147/77 H 08/15/17 04:00 97.6 F 84 18 157/73 H 92 L 08/14/17 21:23 97.5 F L 99 18 95 08/14/17 21:15 97.5 F L 99 18 161/75 H 95 Weight Weight 138 lb 4 oz I&O: 08/14/17 08/15/17 08/16/17 06:59 06:59 06:59 Intake Total 2050 2158 Output Total 1800 1890 Balance 250 268 Result Diagrams: 08/15/17 04:11 08/15/17 04:11 Additional Labs: Accuchecks 08/15/17 08/14/17 08/14/17 05:43 20:31 16:28 POC Glucose 185 H 160 H 204 H 08/14/17 11:32 POC Glucose 232 H Phys Exam - Physical Examination Constitutional: NAD HEENT: PERRLA, moist MMs, sclera anicteric Neck: no JVD, supple Respiratory: no wheezing, no rales, no rhonchi Cardiovascular: RRR, no significant murmur, no rub Gastrointestinal: soft, non-tender, no distention, positive bowel sounds Musculoskeletal: no edema, pulses present Neurological: non-focal, normal sensation, moves all 4 limbs Psychiatric: normal affect, A&O x 3 Skin: no rash, normal turgor Dx/Plan (1) Ischemic colitis, enteritis, or enterocolitis Code(s): K55.9 - VASCULAR DISORDER OF INTESTINE, UNSPECIFIED Status: Acute Comment: on conservative treatment (2) Acute renal failure superimposed on stage 2 chronic kidney disease Code(s): N17.9 - ACUTE KIDNEY FAILURE, UNSPECIFIED; N18.2 - CHRONIC KIDNEY DISEASE, STAGE 2 (MILD) Status: Acute Comment: improving (3) Dehydration Code(s): E86.0 - DEHYDRATION Status: Resolved Comment: (4) Hyperkalemia Code(s): E87.5 - HYPERKALEMIA Status: Resolved Comment: (5) Hyponatremia Code(s): E87.1 - HYPO-OSMOLALITY AND HYPONATREMIA Status: Resolved Comment: due to dehydration (6) Lactic acidosis Code(s): E87.2 - ACIDOSIS Status: Resolved (7) Nausea & vomiting Code(s): R11.2 - NAUSEA WITH VOMITING, UNSPECIFIED Status: Resolved (8) Sepsis with acute organ dysfunction Code(s): A41.9 - SEPSIS, UNSPECIFIED ORGANISM; R65.20 - SEVERE SEPSIS WITHOUT SEPTIC SHOCK Status: Acute (9) Anemia, normocytic normochromic Code(s): D64.9 - ANEMIA, UNSPECIFIED Status: Chronic (10) CAD (coronary artery disease) Code(s): I25.10 - ATHSCL HEART DISEASE OF [place] CORONARY ARTERY W/O ANG PCTRS Status: Chronic (11) Diabetes type 2, controlled Code(s): E11.9 - TYPE 2 DIABETES MELLITUS WITHOUT COMPLICATIONS Status: Chronic (12) Dyslipidemia Code(s): E78.5 - HYPERLIPIDEMIA, UNSPECIFIED Status: Chronic (13) Hypertension Code(s): I10 - ESSENTIAL (PRIMARY) HYPERTENSION Status: Chronic Qualifiers: Hypertension type: essential hypertension Qualified Code(s): I10 - Essential (primary) hypertension - Plan cont current plan of care, plan discussed w/ family, continue antibiotics * DC IVF * advance diet * medication reviewed as below * symptomatic treatment * restart losartan * discussed with son. He wanted to change appointment with CT surgeon early Review of Systems - Review of Systems Eyes: negative: Pain, Vision Change, Conjunctivae Inflammation, Eyelid Inflammation, Redness, Other ENT: negative: Ear Pain, Ear Discharge, Nose Pain, Nose Discharge, Nose Congestion, Mouth Pain, Mouth Swelling, Throat Pain, Throat Swelling, Other Respiratory: negative: Cough, Dry, Shortness of Breath, Hemoptysis, SOB with Excertion, Pleuritic Pain, Sputum, Wheezing Cardiovascular: negative: chest pain, palpitations, orthopnea, paroxysmal nocturnal dyspnea, edema, light headedness, other Gastrointestinal: negative: Nausea, Vomiting, Abdominal Pain, Diarrhea, Constipation, Melena, Hematochezia, Other Genitourinary: negative: Dysuria, Frequency, Incontinence, Hematuria, Retention , Other Musculoskeletal: negative: Neck Pain, Shoulder Pain, Arm Pain, Back Pain, Hand Pain, Leg Pain, Foot Pain, Other Skin: negative: Rash, Lesions, Oliver, Bruising, Other - Medications/Allergies Allergies/Adverse Reactions: Allergies Allergy/AdvReac Type Severity Reaction Status Date / Time No Known Allergies Allergy Verified 08/13/17 04:43 Medications: Current Medications Acetaminophen (Tylenol) 650 mg PO Q4H PRN PRN Reason: Headache/Fever or Pain Hydrocodone Bitart/Acetaminophen ([place] 5/325) 1 tab PO Q4H PRN PRN Reason: Moderate Pain (4-6) Al Hydroxide/Mg Hydroxide (Maalox) 15 ml PO Q4H PRN PRN Reason: Heartburn or Indigestion Albuterol Sulfate (Proventil Hfa) 1 puff INH Q4HR PRN PRN Reason: SOB &/or Wheezing Artificial Tears (Tears Naturale) 0 drop EA EYE PRN PRN PRN Reason: Dry Eyes Aspirin (Ecotrin) 81 mg PO DAILY [facility] Last Admin: 08/15/17 09:00 Dose: 81 mg Atorvastatin Calcium (Lipitor) 20 mg PO HS [facility] Last Admin: 08/14/17 20:22 Dose: 20 mg Calcium Carbonate (Tums) 1,000 mg PO Q4H PRN PRN Reason: Heartburn or Indigestion Clonidine (Catapres) 0.1 mg PO TID PRN PRN Reason: SBP Greater Than 170 Dextrose/Water (Dextrose 50%) 25 gm SLOW IVP ONE [facility] Stop: 09/11/17 21:31 Last Admin: 08/12/17 21:44 Dose: 25 gm Dextrose/Water (Dextrose 50%) 25 gm SLOW IVP PRN PRN PRN Reason: Hypoglycemia Glucagon (Glucagon) 1 mg IM PRN PRN PRN Reason: Hypoglycemia Guaifenesin (Robitussin Sf) 200 mg PO Q4H PRN PRN Reason: Cough Last Admin: 08/15/17 09:07 Dose: 200 mg Dextrose/Water (D5w) 1,000 mls @ 0 mls/hr IV .Q0M PRN; As Directed PRN Reason: Hypoglycemia Meropenem 1 gm/ Sodium (Chloride) 100 mls @ 100 mls/hr IVPB 0800 [facility] Last Admin: 08/15/17 09:00 Dose: 100 mls Insulin Human Regular (Humulin R) 0 units SC .MILD SLIDING SCALE PRN PRN Reason: Mild Correctional Scale Last Admin: 08/15/17 05:56 Dose: 2 unit Labetalol HCl (Normodyne) 10 mg SLOW IVP Q4H PRN PRN Reason: Systolic BP > 180 Loratadine (Claritin) 10 mg PO DAILYPRN PRN PRN Reason: Sinus Symptoms Losartan Potassium (Cozaar) 50 mg PO DAILY [facility] Magnesium Hydroxide (Milk Of Magnesium) 30 ml PO DAILYPRN PRN PRN Reason: Constipation Mineral Oil/White Petrolatum (Eucerin Cream) 0 gm TOP BIDPRN PRN PRN Reason: Dry Skin Nifedipine (Procardia Xl) 90 mg PO DAILY [facility] Last Admin: 08/15/17 08:59 Dose: 90 mg Nitroglycerin (Nitrostat) 0.4 mg PO Q5MIN PRN PRN Reason: Chest Pain Ondansetron HCl (Zofran Odt) 4 mg PO Q6H PRN PRN Reason: Nausea/Vomiting Ondansetron HCl (Zofran) 4 mg IVP Q6H PRN PRN Reason: Nausea/Vomiting Pantoprazole Sodium (Protonix) 40 mg PO DAILY [facility] Last Admin: 08/15/17 09:00 Dose: 40 mg Phenol (Chloraseptic [place] 180 Ml Bot) 0 ml PO PRN PRN PRN Reason: Sore Throat Senna (Senokot) 2 tab PO HSPRN PRN PRN Reason: Constipation Sodium Chloride (Flush - Normal Saline) 10 ml IVF Q12HR [facility] Last Admin: 08/15/17 09:00 Dose: Not Given Sodium Chloride (Flush - Normal Saline) 10 ml IVF PRN PRN PRN Reason: Saline Flush Sodium Chloride ([place] Nasal [place] 0.65%) 0 ml EA NARE QIDPRN PRN PRN Reason: Nasal Congestion Zolpidem Tartrate (Ambien) 5 mg PO HSPRN PRN PRN Reason: Insomnia
--- NOTE | 2017-08-15 09:16 | PRG ---
DATE OF SERVICE: 08/15/2017 SUBJECTIVE: Mr. Farrell is tolerating his diet well. He has no abdominal pain. He had a bowel move ment yesterday. PHYSICAL EXAMINATION: VITAL SIGNS: Temperature 98.2, pulse 85, blood pressure 147/84. GENERAL: He is in no acute distress, awake and alert. LUNGS: Clear to auscultation bilaterally. HEART: Regular rate and rhythm. ABDOMEN: Soft, nontender, and nondistended. Bowel sounds are present. EXTREMITIES: No lower extremity edema. IMPRESSION: Acute episode of nausea, vomiting, abdominal pain. This could have been infectious derek roenteritis versus some degree of mesenteric ischemia related to dehydration and cardiovascular disea se. RECOMMENDATIONS: 1. Continue heart healthy diet. 2. I will sign off for now. Please call if GI can be of assistance.
[2017-08-15] MEDS ORDERED: Meropenem 1 GM in Sodium Chloride 0.9% 100 ML IVPB SCH (16:00)
[2017-08-15] MEDS: Atorvastatin Calcium 20 MG TAB PO SCH (20:20)
[2017-08-15] MEDS: MEROPENEM 1 GM/50 ML 1 GM in Premix Bag 1 BAG IVPB SCH (20:20)
[2017-08-16] MEDS: Insulin Regular 300 UNITS/3 ML VIAL SC PRN ×2 (05:28→11:45)
[2017-08-16] MEDS: Aspirin 81 mg Enteric Coated Tablet PO SCH (08:03)
[2017-08-16] MEDS: NIFEdipine XL 90 MG TAB PO SCH (08:06)
[2017-08-16] MEDS: MEROPENEM 1 GM/50 ML 1 GM in Premix Bag 1 BAG IVPB SCH ×2 (08:10→08:28)
[2017-08-16] MEDS ORDERED: Losartan 25 MG TAB PO SCH (09:00)
[2017-08-16 11:18] VITALS: BP 145/83; TEMP 97.5
--- NOTE | 2017-08-16 12:35 | DIS ---
DATE OF ADMISSION: 08/12/2017 DATE OF DISCHARGE: 08/16/2017 PRIMARY CARE PHYSICIAN: Joana call admission. DISCHARGE DISPOSITION: Home. PRIMARY DISCHARGE DIAGNOSES: 1. Acute kidney failure. 2. Demand ischemia of myocardium. 3. Ischemic colitis. 4. Sepsis with acute organ dysfunction. 5. Dehydration. 6. Hyperkalemia. 7. Hyponatremia. 8. Lactic acidosis. 9. Nausea and vomiting. SECONDARY DISCHARGE DIAGNOSES: Recent history of aortic valve replacement, chronic kidney disease st age 3, normocytic normochromic anemia, coronary artery disease, diabetes type 2, dyslipidemia, hypert ension. PRIMARY PROCEDURE/OPERATION: None. RADIOLOGICAL INVESTIGATION: Chest x-ray on admission showed no acute process. Abdomen and pelvis CT scan reported as cardiomegaly, aortic valve replacement. Findings suggestive of enteritis. Renal u ltrasound was unremarkable. SIGNIFICANT LABORATORY DATA: WBC 8.8, hemoglobin 10.6, platelet 214. Urinalysis normal. Alphafetop rotein 3.5. Sodium 140, creatinine 1.19, potassium 4.2, AST 42, lactic acid 3.6, ALT 32, alkaline ph osphatase 115, albumin 3.0, serum ketone 0.51. Blood culture negative. Stool for guaiac negative. DISCHARGE MEDICATIONS: Ventolin HFA 1 puff q.4 hourly p.r.n., Augmentin 875 mg twice daily for 5 day s, aspirin 81 mg p.o. daily, Lipitor 20 mg p.o. at bedtime, clonidine 0.1 mg p.o. t.i.d., Pepcid 20 m g p.o. b.i.d., losartan 50 mg p.o. daily, Procardia-XL 90 mg p.o. daily, metformin 500 mg p.o. b.i.d. , and glipizide 2.5 mg p.o. daily. CONTRAINDICATIONS: None. CODE STATUS: FULL CODE. INPATIENT CONSULTANTS: Dr. Puentes was following while in hospital. Dr. Villar was consulted for acute k idney failure. Dr. Gleason saw this patient because patient was in IM. TEST RESULTS PENDING ON DISCHARGE: None. ALLERGIES: No known drug allergy. DISCHARGE PLAN: Post hospital, patient will follow up with primary care physician as instructed. HOSPITAL COURSE: A 77-year-old male with above-mentioned medical problem who was admitted b y Dr. Hardik Pastrana. Please see his H&P for further details. The patient was having nausea, vomiting, and right lower quadrant abdominal pain. On admission, the patient appeared dehydrated. He had lac tic acidosis, hyponatremia, and hyperkalemia. Patient also had acute kidney failure. His creatinine on admission was 2.73. Patient was admitted to [facility]. The patient required IV fluid. The patient's blood pressure medicine initially kept on hold, losartan was kept on hold. With IV fluid therapy, donald ryder's renal function improved to 1.19. His abnormal electrolytes also corrected. His dehydration corrected. His lactic acidosis is also improving. Based on clinical examination, we suspected isch emic colitis because pain is out of proportion to get a clinical examination, he also had lactic acid osis and leukocytosis, all improved. While in hospital, we empirically treated him with vancomycin a nd meropenem. On discharge, we changed to Augmentin. During this admission, patient did not require any procedure. His blood culture is negative. His previous surgical site is clean and healthy. We are prescribing metformin 500 mg p.o. b.i.d. and glipizide 2.5 mg p.o. daily for his diabetes. Di etary instruction given. Patient will resume all his previous medication. The patient is seen and examined at bedside today. Plan of care discussed with the patient and his s on. Patient's family member wanted to see Dr. Reyes, cardiovascular surgeon early, but he has outpatient followup scheduled already. PHYSICAL EXAMINATION: VITAL SIGNS: Today, temperature 98.6, pulse 77, respiratory rate 18, saturation 95% on room air, blo od pressure 136/71, weight 138 pounds. GENERAL: Patient is currently alert, awake, no acute distress. HEAD: Normocephalic, atraumatic. EYES: Pupils are round, reactive to light. Extraocular muscle intact. ENT: Oropharynx within normal limits. Moist mucous membranes. No oral lesion, no pharyngeal erythe ma, no exudate. NECK: Supple, no JVD, no thyromegaly. LUNGS: Clear. CARDIAC: S1 and S2 regular without any murmur. ABDOMEN: Soft and benign without any tenderness. EXTREMITIES: No edema. NEUROLOGIC: Nonfocal examination. Review of systems reviewed and negative.
--- NOTE | 2017-08-16 15:59 | PRG ---
DATE OF SERVICE: 08/16/2017 SUBJECTIVE: Mr. Farrell did well overnight. He had no complaints. OBJECTIVE: LUNGS: Clear. HEART: Regular rhythm. ABDOMEN: Soft. His family is asking whether or not it safe for him to travel back to [place]. He says he was here vi siting when he underwent his surgery. He appears to be stable from my standpoint. The Hospitalist michael joiner make final recommendations regarding travel and discharge medications. We will sign off.
== END 2017-08-16 13:05 | disposition home or self-care (01) | DRG 871 ==
LOC: ERS 16:03 → IMCU/EMU 18:00 → T4-A 08-14 21:22
PROVIDERS: ADMIT Internal Medicine; ATTEND Internal Medicine
DX: A41.9 Sepsis, unspecified organism (principal); K55.039 Acute (reversible) ischemia of large intestine, extent unspecified; N17.9 Acute kidney failure, unspecified; E87.2 Acidosis; E87.1 Hypo-osmolality and hyponatremia; I24.8 Other forms of acute ischemic heart disease; E11.22 Type 2 diabetes mellitus with diabetic chronic kidney disease; R65.20 Severe sepsis without septic shock; I12.9 Hypertensive chronic kidney disease with stage 1 through stage 4 chronic kidney disease, or unspecified chronic kidney disease; N18.2 Chronic kidney disease, stage 2 (mild); E87.5 Hyperkalemia; E86.0 Dehydration; D64.9 Anemia, unspecified; E78.5 Hyperlipidemia, unspecified; I25.10 Atherosclerotic heart disease of native coronary artery without angina pectoris; Z95.2 Presence of prosthetic heart valve; Z95.1 Presence of aortocoronary bypass graft; Z79.82 Long term (current) use of aspirin; Z79.899 Other long term (current) drug therapy
CPT/HCPCS: 36415; 36416; 71046; 74176; 76770; 80048; 80053; 81001; 82010; 82105; 82274; 82553; 82570; 82805; 83605; 83690; 83735; 84100; 84300; 84484; 85025; 87040; 93005; 94760; 96361; 96374; 96375; A4216; C9113; G8978-GP-CJ; G8979-GP-CJ; G8980-GP-CJ; J2185; J7050; J7070